=== PATIENT | male | born 1985 | race Caucasian/White ===

== ENCOUNTER 2019-07-29 17:54 | Inpatient (IN) ==
[2019-07-29] MEDS ORDERED: KETOROLAC TROMETHAMINE 15 MG/ML VIAL IV STA (18:18)
[2019-07-29] MEDS ORDERED: ACETAMINOPHEN 1,000 MG/100 ML VIAL IV STA (18:40)
[2019-07-29] MEDS ORDERED: VANCOMYCIN CONSULT ACTIVE PRN (18:40)
[2019-07-29] MEDS ORDERED: PIPERACILL/TAZOBAC CONSULT ACTIVE PRN (18:40)
[2019-07-29] MEDS ORDERED: PIPERACILLIN/TAZOBACTAM 4.5 GM/120 ML BAG IV ONE (18:40)
[2019-07-29] MEDS ORDERED: VANCOMYCIN HCL 1,000 MG in SODIUM CHLORIDE 0.9% 500 ML IV ONE (18:40)
[2019-07-29 19:31] LABS: Basophils # (auto) 0.01 K/uL (0-0.2); Basophils % (auto) 0.1 %; Eosinophils # (auto) 0.03 K/uL (0-0.5); Eosinophils % (auto) 0.3 %; Hematocrit (blood only) 35.7 % (42-52); Hemoglobin 11.5 g/dL (14.0-18.0); Immature Granulocytes # (auto) 0.02 K/uL (0.00-0.02); Immature Granulocytes % (auto) 0.2 %; Lymphocytes # (auto) 0.82 K/uL (1.2-3.4); Lymphocytes % (auto) 9.2 %; Mean Corpuscular Hemoglobin 27.9 pg (25-34); Mean Corpuscular Hgb Conc 32.2 g/dL (32-36); Mean Corpuscular Volume 86.7 fL (80-100); Mean Platelet Volume 8.3 fL (7.4-10.4); Monocytes # (auto) 0.64 K/uL (0.11-0.59); Monocytes % (auto) 7.1 %; Neutrophils # (auto) 7.44 K/uL (1.4-6.5); Neutrophils % (auto) 83.1 %; Platelet Count 460 K/uL (130-400); RDW Coefficient of Variation 13.6 % (11.5-14.5); RDW Standard Deviation 43.3 fL (36.4-46.3); Red Blood Count 4.12 M/uL (4.7-6.1); White Blood Count 8.96 K/uL (4.8-10.8)
[2019-07-29 19:45] LABS: INR 1.3 (0.9-1.1); Prothrombin Time 13.2 Seconds (9.0-12.0)
[2019-07-29 19:50] LABS: Albumin Level 3.1 gm/dl (3.4-5.0); Calcium 9.2 mg/dl (8.5-10.1); Creatinine Clr Calc Pharmacy 108.4 ml/min; Est GFR (African American) 146.2; Est GFR (Non-African American) 126.1; Potassium 4.2 mmol/L (3.5-5.1)
[2019-07-29 19:56] LABS: Albumin Globulin Ratio 0.6 (0.9-2); Bilirubin,Total 0.3 mg/dl (0.2-1); Globulin 5.6 gm/dl (2.5-4.0); Total Protein 8.7 gm/dl (6.4-8.2)
[2019-07-29] MEDS ORDERED: IOVERSOL 100ml IV PRN (22:16)
--- NOTE | 2019-07-29 22:31 | CT Scan Report ---
CT forearm LT w con CT DOSE: 403.80 mGy.cm CLINICAL HISTORY: Left forearm swelling. Possible abscess. TECHNIQUE: Patient was scanned in a dynamic helical fashion during intravenous administration of 92 2 0 cc of Optiray 320. A dose lowering technique was utilized adhering to the principles of ALARA. COMPARISON STUDY: None. FINDINGS: The patient was unable to move his arm from his abdomen. The study is therefore somewhat li mited from a technical standpoint. No fractures are visualized. There are no bony destructive changes to indicate acute osteomyelitis. There is gas present within the soft tissues of the proximal forearm suggestive of an infectious proc ess, or injection site.. There is a 3 cm pseudoaneurysm present within the medial aspect of the antecubital fossa. There is lucero rrounding soft tissue edema. IMPRESSION: 1. No evidence of fracture 2. Gas within the subcutaneous tissues of the antecubital fossa. This is suggestive of either infecti on, or injection site. 3. 3 cm contrast collection within the medial aspect of the antecubital fossa, likely representing a pseudoaneurysm arising from the brachial artery Electronically signed by: Kyler Bruce M.D. 07/29/2019 10:29 PM
--- NOTE | 2019-07-29 22:34 | CT Scan Report ---
CT elbow LT w con CT DOSE: CLINICAL HISTORY: infection, pain TECHNIQUE: Patient was scanned in a dynamic helical fashion during intravenous administration of 92 c c of Optiray 320. A dose lowering technique was utilized adhering to the principles of ALARA. COMPARISON STUDY: None. FINDINGS: The patient was unable to move his arms from his abdomen. The study is therefore limited from a techn ical standpoint due to arm positioning. There is gas present within the medial soft tissues of the antecubital fossa region, suggestive of ei ther a soft tissue infection or injection site. There is a 3 cm collection of contrast in the medial aspect of the antecubital fossa, likely represen ting a pseudoaneurysm arising from the brachial artery. There is surrounding edema. There are no acute fractures. There are no destructive changes to indicate osteomyelitis. IMPRESSION: 1. 3 cm collection of contrast within the medial aspect of the antecubital fossa, likely representing a pseudoaneurysm arising from the brachial artery. There is surrounding edema. 2. Gas present within the superficial medial soft tissues of the antecubital fossa. The findings are likely secondary to either an injection site, or soft tissue infection. Electronically signed by: Kyler Bruce M.D. 07/29/2019 10:33 PM
[2019-07-29] MEDS ORDERED: buprenorphine HCL 8 MG SUBL SL STA (23:15)
[2019-07-29] MEDS ORDERED: NITROGLYCERIN SL 0.4 MG/TAB TAB SL PRN (23:49)
[2019-07-29] MEDS ORDERED: ONDANSETRON INJ 2 MG/ML 2 ML VIAL IV PRN (23:49)
--- NOTE | 2019-07-30 00:35 | History and Physical Report ---
DATE OF ADMISSION: 07/29/2019 CHIEF COMPLAINT: Bleeding from the left antecubital fossa. HISTORY OF PRESENT ILLNESS: This is a 33-year-old male with past medical history significant for history of hepatitis C, status post treatment, history of I.V. drug abuse,last iv drug about 1 month ago, on 07/25/2019, he noticed swelling in the left elbow region and today morning, he also had some swelling in the left upper extremity, so we went to his pain clinic today and pain doctor tried to attempt to drain the swelling, but no pus came out, but started to bleed and the bleeding was stopped with Dermabond, but the patient came here. Here, in the Emergency Room, imaging studies showed 3 cm contrast collection over the medial aspect of the antecubital fossa, likely representing a pseudoaneurysm arising from the brachial artery and there is some gas in the subcutaneous tissues of the antecubital fossa. This is suggestive of either infection or injection site. The patient currently afebrile and hemodynamically stable and no leukocytosis. Denies any headache. No dizziness. No blurred vision. No earache. No sore throat. No difficulty swallowing. Appetite is okay. No chest pain. No shortness of breath. No cough. No nausea. No abdominal pain. Normal bowel and bladder movements. No blood in the stools. No black stools. No hematuria. No burning micturition. No swelling in the legs. No rash. Otherwise, active. ALLERGIES: TORADOL, SULFA ANTIBIOTICS AND TRAMADOL. PAST MEDICAL HISTORY: As mentioned above. PAST SURGICAL HISTORY: Hernia surgery as an , wisdom teeth. MEDICATIONS: The patient is on Subutex sublingual 8 mg t.i.d. and naproxen p.r.n. FAMILY HISTORY: Significant for father had alcoholism. Maternal grandfather with heart disorder. SOCIAL HISTORY: Single, lives with his mother. No smoking. Alcohol occasional. I.V. drug abuse, last time was about one month ago. REVIEW OF SYMPTOMS: As per HPI. Rest of review of systems negative. PHYSICAL EXAMINATION: GENERAL: The patient is of moderate build, not in acute distress. VITAL SIGNS: Temperature 36.9, pulse 56, respiratory rate 20, blood pressure 131/59 and oxygen 98% on room air. HEENT: No pallor. No icterus. Pupils are equal, round and reactive to light. NECK: Supple. No neck masses. CARDIOVASCULAR: S1, S2 heard. Regular rate and rhythm. No murmur. No gallop. RESPIRATORY SYSTEM: Normal AP diameter. No accessory muscle use. No wheezing. No crackles. ABDOMEN: Soft. Bowel sounds present. Nontender. No distention. CENTRAL NERVOUS SYSTEM: Cranial nerves II through XII grossly nonfocal. EXTREMITIES: Left upper extremity swollen, slightly erythematous. Left brachial pulses are palpable. LABORATORY DATA: WBC 8.9, hemoglobin 11.5, hematocrit 35.7 and platelets 460. PT 13.2. INR 1.3. Sodium 136, potassium 4.2, chloride 199, bicarbonate 31, BUN 7, creatinine 0.6, serum glucose 115, calcium 9.2, total bilirubin 0.3, AST 14, ALT 42 and alkaline phosphatase 87. IMAGING: CT scan of the left elbow with contrast, 3 mm collection of contrast within the medial aspect of the antecubital fossa, likely representing a pseudoaneurysm arising from the brachial artery. There is surrounding edema, gas present in the superficial medial soft tissues of the antecubital fossa. Findings are likely secondary to either injection site or soft tissue infection. Left forearm CT with contrast, no evidence of fracture or gas within the subcutaneous tissue of the antecubital fossa. This is suggestive of either infection or injection site 3 cm contrast collection in the medial aspect of the antecubital fossa, likely representing pseudoaneurysm arising from the brachial artery. ASSESSMENT AND PLAN: This is a 33-year-old male who presents with left upper extremity swelling and also swelling of the left antecubital fossa and found to have a pseudoaneurysm. 1. Probable pseudoaneurysm of the left brachial artery at the left antecubital fossa medial aspect. First, he noticed swelling in the left elbow on 07/25/2019 he went to pain doctor today and was tried to drain it, but no pus came out, it started bleeding and the bleeding was stopped with Dermabond and he came to the Emergency Room and the above findings were found. The Emergency Room physician talked to Vascular Surgery, to monitor, on I.V. antibiotics . We will consult Vascular Disease. In the Emergency Room, he was given Zosyn and vancomycin, which we will continue. Follow blood cultures. Because of the swelling of the left upper extremity, we will also do Doppler to rule out deep venous thrombosis. 2. History of hepatitis C, status post treatment. 3. Intravenous drug abuse, needs counseling. 4. Deep venous thrombosis prophylaxis, sequential compression devices. DISPOSITION: Admit to Med/Surg tele. Level 1 full code. MTDD
[2019-07-30] MEDS: PIPERACILLIN/TAZOBACTAM 3.375 GM in DEXTROSE 5% 100 ML IV SCH ×3 (01:01→19:16)
[2019-07-30] MEDS: SODIUM CHLORIDE 0.9% 1000ML 1,000 ML IV SCH ×2 (01:01→16:16)
[2019-07-30] MEDS: ACETAMINOPHEN 325 MG TAB PO PRN ×2 (01:02→17:29)
--- NOTE | 2019-07-30 01:13 | Emergency Department Note ---
Entered by Mindy Barnes acting as a scribe for History of Present Illness General Chief complaint: Laceration/Cut (Suture/Dermabond) Stated complaint: LAC ON ARM, ABCESS ON ARM Time Seen by Provider: 07/29/19 18:08 Source: patient History of Present Illness Onset (ago): day(s) 4 Location: upper extremity and left Pain Consistency: + other (persistent ) Maximum Pain Intensity: 6 Current Pain Intensity: 6 Quality: + other (abscess) Associated symptoms: + other (positive left upper extremity swelling; positive left elbow pain; negative pain in left hand; negative increased exhaustion); no fever/chills Treatments prior to arrival: other (Keflex) The patient is a 33 year old male with PMHx of IV drug abuse and osteomyelitis who presents to the Emergency Room with complaints of a persistent left arm abscess that began on July 25, 4 days prior to arrival. The patient states that since this time there has been worsening swelling in this area since this time. He states that a month prior to his symptoms beginning, he injected Subutex and states that there was pain with this and states that he then switched locations of injection. The patient states he has some pain near the center of this swelling, and rates this as a 6/10. He states that the swelling is now firm and his range of movement of this arm is limited. The patient denies pain in his hand, fevers, chills, and increased exhaustion. The patient denies any history of infections in this arm, but does state that he has a history of a spinal infection and MRSA infections. He states that he went to his Subutex- prescribing physician tamar who cut a small incision into the LUE that resulted in venous oozing and sent the patient to the ED. The patient states that he was given Keflex just prior to arrival. Home Medications Home Medications Medication Instructions Recorded Confirmed Type buprenorphine HCl 8 mg SUBLINGUAL TID 07/29/19 07/29/19 History naproxen sodium [Aleve] 1,100 mg PO Q8H PRN 07/29/19 07/29/19 History Allergies Allergy/AdvReac Type Severity Reaction Status Date / Time ketorolac [From Toradol] Allergy Unknown Unverified 07/29/19 18:28 Sulfa (Sulfonamide Allergy Unknown Unverified 07/29/19 18:28 Antibiotics) tramadol Allergy Unknown Unverified 07/29/19 18:28 Past Med/Surg History Medical History MRSA infection Family History Other No pertinent family history in first degree relatives Social History Preferred Language: Israeli Communication Ability: Effective 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 and A total of 10 systems reviewed and were otherwise negative Physical Exam Vital Signs Vital Signs - 24 hr 07/29/19 18:00 07/29/19 19:41 07/29/19 20:28 Temperature 36.9 C Temperature Source Oral Pulse Rate 89 Pulse Rate [Bilateral Apical] 86 65 Respiratory Rate 20 20 20 Respiratory Effort / Characteristics Non-Labored Spontaneous Respiratory Depth Normal Blood Pressure 117/79 Blood Pressure [Right Arm] 130/67 112/59 L Blood Pressure Mean 91 Blood Pressure Mean [Right Arm] 88 76 Blood Pressure Position Sitting Pulse Oximetry 97 97 97 Oxygen Delivery Method Room Air Room Air Room Air Sepsis Recent Fever Within 48 Hours No Sepsis Action Taken by Nursing No Action Required 07/29/19 21:05 07/29/19 22:18 Temperature Temperature Source Pulse Rate Pulse Rate [Bilateral Apical] 61 66 Respiratory Rate 18 20 Respiratory Effort / Characteristics Respiratory Depth Blood Pressure Blood Pressure [Right Arm] 119/67 121/59 L Blood Pressure Mean Blood Pressure Mean [Right Arm] 84 79 Blood Pressure Position Pulse Oximetry 92 98 Oxygen Delivery Method Room Air Sepsis Recent Fever Within 48 Hours Sepsis Action Taken by Nursing GENERAL: Awake, alert, uncomfortable appearing HENT: Normocephalic, atraumatic. EYES: Normal conjunctiva. Sclera non-icteric. RESPIRATORY: Clear to auscultation. No wheezes. Normal respiratory effort. CARDIAC: Normal rate. Normal rhythm. Extremities warm and well perfused. GI: Soft, non-distended. No tenderness to palpation. MUSCULOSKELETAL: Atraumatic. Chest examination reveals no tenderness. UPPER EXTREMITIES: Swelling and firmness of the left distal upper arm extending towards forearm. 1+ left radial pulse. Neuro intact in the left hand. Mild swelling of the left forearm and hand. No pain with movement of fingers or wrist. Patient is unable to move left upper extremity out of 90 degrees at elbow. There is a 1cm distal left upper arm incision minimal to no oozing. LOWER EXTREMITIES: Calves are equal size bilaterally and non-tender. No edema NEURO: No sensory deficits noted. No facial droop or slurred speech. SKIN: Warm and dry. No jaundice noted. Course Course 1810: Past medical records reviewed. The patient was evaluated in room B11B. A complete history and physical exam was performed. 2055: The patient's IV failed at CT. 2120: The IV team is trying again to get an IV for the patient. 8: I was able to successfully put an IV in the patient. 2243: I discussed the case with Dr. Ziegler-Vascular Surgery who recommends no acute treatment. He states that he will evaluate the patient when he is in inpatient. 2252: I checked on and updated the patient. He is in agreement with the treatment plan. 2254: [facility] for further evaluation. Administered Medications Acetaminophen (Tylenol) 650 mg PO Q4H PRN PRN Reason: Pain or Fever Stop: 08/28/19 23:48 Last Admin: 07/30/19 01:02 Dose: 650 mg Documented by: [id number] Sodium Chloride (Nss 1000ml) 1,000 mls @ 80 mls/hr IV .[id number] [id number] Stop: 08/28/19 23:48 Last Admin: 07/30/19 01:01 Dose: 80 mls/hr Documented by: [id number] Piperacillin Sod/Tazobactam (Sod 3.375 gm/ Dextrose) 115 mls @ 28.75 mls/hr IV Q8H BIJU; Protocol Stop: 08/09/19 01:59 Last Admin: 07/30/19 01:01 Dose: 28.8 mls/hr Documented by: [id number] Discontinued Medications Buprenorphine HCl (Subutex) 8 mg SL NOW STA Stop: 07/29/19 23:16 Last Admin: 07/29/19 23:28 Dose: 8 mg Documented by: [id number] Piperacillin Sod/Tazobactam Sod (Zosyn) 4.5 gm in 120 mls @ 240 mls/hr IV NOW ONE Stop: 07/29/19 19:09 Last Infusion: 07/29/19 20:25 Dose: 0 mls/hr Documented by: [id number] Admin: 07/29/19 19:52 Dose: 240 mls/hr Documented by: [id number] Vancomycin HCl 1,000 mg/ (Sodium Chloride) 520 mls @ 200 mls/hr IV NOW ONE Stop: 07/29/19 21:15 Last Infusion: 07/30/19 00:29 Dose: 0 mls/hr Documented by: [id number] Admin: 07/29/19 20:20 Dose: 200 mls/hr Documented by: [id number] Acetaminophen (Ofirmev) 1,000 mg in 100 mls @ 400 mls/hr IV NOW STA Stop: 07/29/19 18:54 Last Infusion: 07/29/19 19:56 Dose: 0 mls/hr Documented by: [id number] Admin: 07/29/19 19:37 Dose: 400 mls/hr Documented by: [id number] Ioversol (Optiray 320 100ml) 92 ml IV ONCE PRN PRN Reason: Interaction Checking Stop: 08/02/19 22:15 Last Admin: 07/29/19 22:17 Dose: 92 ml Documented by: [id number] Ketorolac Tromethamine (Toradol) 15 mg IV NOW STA Stop: 07/29/19 18:19 Last Admin: 07/29/19 20:26 Dose: Not Given Documented by: [id number] Medical Decision Making Differential Diagnosis Differential diagnosis includes etiologies such as cellulitis, abscess, MRSA infection, DVT, necrotizing fasciitis, dermatitis, drug eruption, as well as others were entertained. Medical Records Attestation: I reviewed the patient's medical records. Home Medications Current Medication List: was personally reviewed by me Laboratory Data Attestation: I reviewed the patient's lab results. Result diagrams: 07/29/19 19:25 07/29/19 19:24 Lab Results 07/29/19 07/29/19 07/29/19 Range/Units 19:24 19:24 19:25 WBC 8.96 (4.8-10.8) K/uL RBC 4.12 L (4.7-6.1) M/uL Hgb 11.5 L (14.0-18.0) g/dL Hct 35.7 L (42-52) % MCV 86.7 (80-100) fL MCH 27.9 (25-34) pg MCHC 32.2 (32-36) g/dL RDW Std Deviation 43.3 (36.4-46.3) fL RDW Coeff of Davdi 13.6 (11.5-14.5) % Plt Count 460 H (130-400) K/uL MPV 8.3 (7.4-10.4) fL Immature Gran % (Auto) 0.2 % Neut % (Auto) 83.1 % Lymph % (Auto) 9.2 % Hardy % (Auto) 7.1 % Eos % (Auto) 0.3 % Baso % (Auto) 0.1 % Immature Gran # (Auto) 0.02 (0.00-0.02) K/uL Neut # (Auto) 7.44 H (1.4-6.5) K/uL Lymph # (Auto) 0.82 L (1.2-3.4) K/uL Hardy # (Auto) 0.64 H (0.11-0.59) K/uL Eos # (Auto) 0.03 (0-0.5) K/uL Baso # (Auto) 0.01 (0-0.2) K/uL PT 13.2 H (9.0-12.0) Seconds INR 1.3 H (0.9-1.1) Sodium 136 (136-145) mmol/L Potassium 4.2 (3.5-5.1) mmol/L Chloride 99 (98-107) mmol/L Carbon Dioxide 31 (21-32) mmol/L Anion Gap 6.0 (3-11) BUN 7 (7-18) mg/dl Creatinine 0.66 (0.6-1.4) mg/dl Est Cr Clr Drug Dosing 108.4 ml/min Est GFR ( Amer) 146.2 Est GFR (Non-Af Amer) 126.1 BUN/Creatinine Ratio 11.0 (10-20) Glucose 115 H (70-99) mg/dl Calcium 9.2 (8.5-10.1) mg/dl Total Bilirubin 0.3 (0.2-1) mg/dl AST 14 L (15-37) U/L ALT 12 (12-78) U/L Alkaline Phosphatase 87 (45-117) U/L Total Protein 8.7 H (6.4-8.2) gm/dl Albumin 3.1 L (3.4-5.0) gm/dl Globulin 5.6 H (2.5-4.0) gm/dl Albumin/Globulin Ratio 0.6 L (0.9-2) Specimen Hemolysis Imaging Data Radiologist's Impression: Radiology results as stated below per my review and the radiologist's interpretation: CT elbow LT w con CT DOSE: CLINICAL HISTORY: infection, pain TECHNIQUE: Patient was scanned in a dynamic helical fashion during intravenous administration of 92 cc of Optiray 320. A dose lowering technique was utilized adhering to the principles of ALARA. COMPARISON STUDY: None. FINDINGS: The patient was unable to move his arms from his abdomen. The study is therefore limited from a technical standpoint due to arm positioning. There is gas present within the medial soft tissues of the antecubital fossa r egion, suggestive of either a soft tissue infection or injection site. There is a 3 cm collection of contrast in the medial aspect of the antecubital fossa, likely representing a pseudoaneurysm arising from the brachial artery. There is surrounding edema. There are no acute fractures. There are no destructive changes to indicate osteomyelitis. IMPRESSION: 1. 3 cm collection of contrast within the medial aspect of the antecubital fossa, likely representing a pseudoaneurysm arising from the brachial artery. There is surrounding edema. 2. Gas present within the superficial medial soft tissues of the antecubital fossa. The findings are likely secondary to either an injection site, or soft t issue infection. Electronically signed by: Kyler Bruce M.D. 07/29/2019 10:[address] forearm LT w con CT DOSE: 403.80 mGy.cm CLINICAL HISTORY: Left forearm swelling. Possible abscess. TECHNIQUE: Patient was scanned in a dynamic helical fashion during intravenous administration of 92 20 cc of Optiray 320. A dose lowering technique was utilized adhering to the principles of ALARA. COMPARISON STUDY: None. FINDINGS: The patient was unable to move his arm from his abdomen. The study is therefore somewhat limited from a technical standpoint. No fractures are visualized. There are no bony destructive changes to indicate acute osteomyelitis. There is gas present within the soft tissues of the proximal forearm suggestive of an infectious process, or injection site.. There is a 3 cm pseudoaneurysm present within the medial aspect of the an tecubital fossa. There is surrounding soft tissue edema. IMPRESSION: 1. No evidence of fracture 2. Gas within the subcutaneous tissues of the antecubital fossa. This is suggestive of either infection, or injection site. 3. 3 cm contrast collection within the medial aspect of the antecubital fossa, likely representing a pseudoaneurysm arising from the brachial artery Electronically signed by: Kyler Bruce M.D. 07/29/2019 10:29 PM Blood Pressure Blood Pressure Findings: Normal blood pressure MDM Narrative Patient is a 33-year-old gentleman presenting here today with complaint of a left arm abscess. History of IV drug use and hepatitis C. States another physician attempted drainage and first noticed this abscess 4 days ago. States he believes is from where he attempted to inject Subutex. States this injection was about a month ago. Afebrile. Denies fever but does endorse some chills. Patient reports a history of MRSA and prior osteomyelitis of the spine proximate 10 years ago. States he has intact sensation and function of his hand but is unable to move his elbow beyond the 90 degree flexed position he is in. The significant swelling and firmness of this surrounding left elbow joint. Again appears neurovascularly intact. No crepitus. Patient endorses 6 out of 10 pa in. Given some IV Tylenol given his history of Subutex usage as well as Toradol allergy. History of IV drug use to present some problems with IV access. Blood cultures and basic labs were ordered. Did attempt a CT of the left upper extremity to evaluate extent of infection. The small prior I&D attempted from earlier today about 1 cm with occasionally a slight ooze but no arterial bleeding noted. No purulence was reported to come out of this for the patient and none is significantly expressed on exam here. Ordered broad-spectrum vancomycin and Zosyn as concern for infection. No significant leukocytosis. Doubt this represents sepsis. No significant electrolyte abnormality. No evidence of acute hepatitis. Placed 18g IV RUE for access after failed 22g in hand by IC team. CT scan of the upper extremity showed evidence of edema and gas collection and what appears to be a 3 cm pseudoaneurysm from the brachial artery. Again has a grossly neurovascularly intact left hand. Discussed with vascular surgeon the case. Given my concerns for overlying cellulitis again received antibiotics and will required vascular repair when infection concerns normalized. Patient will be admitted with vascular to see in the morning. Discussed with the patient and the [facility]ist. I do not have acute suspicion at this time for necrotizing fasciitis. Impression & Plan Cellulitis of left elbow, Pseudoaneurysm of brachial artery, Left elbow pain Discharge Plan Visit Data *Final* Discharge Date/Time: 07/29/19 23:37 Chief Complaint: Laceration/Cut (Suture/Dermabond) Stated Complaint: LAC ON ARM, ABCESS ON ARM ED Provider: Chaka Kolb Discharge Problem: Cellulitis of left elbow, Pseudoaneurysm of brachial artery, Left elbow pain Patient Disposition: Admitted As Inpatient Discharge Instructions Interventions: ED Discharge Assessment Last Done: 07/29/19 23:37 The scribe's documentation has been prepared under my direction and personally reviewed by me in its entirety. I confirm that the note above accurately reflects all work, treatment, procedures, and medical decision making performed by me.
[2019-07-30] MEDS ORDERED: SODIUM CHLORIDE 0.9% 500 ML IV SCH (04:00)
[2019-07-30] MEDS: VANCOMYCIN HCL 1,000 MG in SODIUM CHLORIDE 0.9% 250 ML IV SCH ×3 (05:28→22:06)
--- NOTE | 2019-07-30 06:33 | Ultrasound Report ---
US venous doppler UE LT HISTORY: 33 years-old Male dvt? swelling of left upper extremity acute pain and swelling of the left upper extremity COMPARISON: Left forearm and elbow CT studies 07/29/2019 TECHNIQUE: Multiple real-time sonographic images of the left upper extremity deep venous structures w ere obtained assessing grayscale appearance, color and spectral flow FINDINGS: Normal flow, compressibility, phasicity and compressibility of left upper extremity deep venous struc tures. Subcutaneous edema is noted throughout. There is a prominent lymph node about the distal upper arm adjacent to the brachial vein measuring up to 0.8 x 0.4 cm, likely reactive. The questioned pseu doaneurysm of the brachial artery is not identified on this exam. Antecubital structures are not well seen secondary to bandage within this region. No drainable fluid collection. IMPRESSION: No sonographic evidence of deep venous thrombosis. The above report was generated using voice recognition software. It may contain grammatical, syntax o r spelling errors. Electronically signed by: Tien Bagley M.D. 07/30/2019 6:32 AM
[2019-07-30] MEDS: buprenorphine HCL 8 MG SUBL SL SCH ×3 (08:40→22:06)
[2019-07-30] MEDS ORDERED: CEFAZOLIN 1000MG 1,000 MG/7.5 ML SYR IV ONE (09:54)
--- NOTE | 2019-07-30 10:05 | Consultation ---
Date of Consultation July 30, 2019 Assessment & Plan (1) Pseudoaneurysm of brachial artery: D/T slow bleeding noted from incision, pt to undergo repair with possible bypass in OR today by Dr Wayne. Pt agreeable. Has been NPO since midnight. Patient was seen, examined, and chart reviewed. Agree with exam and treatment plan of the Vascular PA. Present on Admission?: Yes History of Present Illness Reason for Consultation: L amr pseudoaneurysm Attending Physician: Sonam Medina MD History of Present Illness 33 yo m with hx of hep C and IVDA, admitted last evening d/t bleeding from L elbow incision and found to have a brachial art pseudoaneurysm, seen in consult ation today. Pt states he last used IVD approx 1 month ago. Noted swelling and pain of L elbow/forearm on 07/25. Yesterday went to pain clinic and physician there attempted to drain what he thought was an abscess. When bleeding was noted, pt was sent to ED. Pt admits swelling and pain of L forearm and hand. Denies fever, chills, chest psin, abd pain, N/V, rest pain, claudication, other complaints. CT scan of L arm demonstrates distal brachial art pseudoaneurysm. Allergies Allergy/AdvReac Type Severity Reaction Status Date / Time ketorolac [From Toradol] Allergy Unknown Unverified 07/29/19 18:28 Sulfa (Sulfonamide Allergy Unknown Unverified 07/29/19 18:28 Antibiotics) tramadol Allergy Unknown Unverified 07/29/19 18:28 Home Medications Home Medications Medication Instructions Recorded Confirmed Type buprenorphine HCl 8 mg SUBLINGUAL TID 07/29/19 07/29/19 History naproxen sodium [Aleve] 1,100 mg PO Q8H PRN 07/29/19 07/29/19 History Patient History Medical History Hepatitis C MRSA infection Surgical History [place] teeth extracted Family History Other No pertinent family history in first degree relatives Social History Preferred Language: Tongan Communication Ability: Effective Drosophere Operator Required: No Beliefs That Will Affect Care: None Current Living Situation: Parent Current Living Situation Comment: mother Feels Safe at Home: Yes Safety Concerns: Feels Safe At This Time Smoking Status: Never smoker Hx Alcohol Use: No Hx Substance Use: Yes (Just my perscribed) substance use type: heroin Substance Use Type Other:: Subutex Review of Systems Review of Systems: All systems reviewed & are unremarkable except as noted in HPI & below Physical Exam Constitutional: WD/WN, vitals as above + disheveled and cooperative; not in distress Eyes: PERRL, conjunctivae normal, anicteric sclerae ENMT: external ear and nose normal, oropharynx normal Ears: no hearing impairment Neck: trachea midline Respiratory: normal respiratory effort, lungs clear to auscultation Cardiovascular: Rate/Rhythm: regular rate and regular rhythm Vessels: normal peripheral pulses, brachial pulses present (L elbow incision oozing blood, 4x5cm pulsatile mass noted), radial pulses present and ulnar pulses pr esent Extremities: normal capillary refill and + edema (L forearm/hand) Gastrointestinal (Abdomen): normal bowel sounds, soft, nontender, no he patosplenomegaly Musculoskeletal: no cyanosis or clubbing, extremities motor strength 5/5 Skin: no rashes, warm and dry Neurologic: moves all extremities; no focal motor deficits and not confused Psychiatric: A+Ox3, euthymic affect Results & Data Vital Signs (Past 12 Hours) Vital Signs Temp Pulse Pulse Pulse Resp BP Pulse Ox 07/30/19 08:00 56 L 07/30/19 07:21 36.8 C 73 16 94/51 L 97 07/30/19 06:16 71 102/70 07/30/19 04:22 77 07/30/19 03:38 37 C 60 18 89/47 L 96 07/29/19 23:58 37.3 C 63 18 109/62 96 07/29/19 23:30 66 18 114/49 L 97 07/29/19 22:18 66 20 121/59 L 98
[2019-07-30] MEDS ORDERED: MEPERIDINE HCL 25 MG/ML CARP IV PRN (10:32)
[2019-07-30] MEDS ORDERED: LABETALOL HCL IV 5 MG/ML 20ML IV PRN (10:32)
[2019-07-30] MEDS ORDERED: ATROPINE SULFATE 0.1 MG/ML 10ML SYR IV PRN (10:32)
[2019-07-30] MEDS ORDERED: ePHEDrine sulfate 50 MG/ML AMP IV PRN (10:32)
[2019-07-30] MEDS ORDERED: PHENYLEPHRINE 100MCG/ML 5ML SYR IV PRN (10:32)
[2019-07-30] MEDS ORDERED: ONDANSETRON INJ 2 MG/ML 2 ML VIAL IV PRN ×2 (10:33→15:52)
--- NOTE | 2019-07-30 10:33 | History & Physical Bridge Note ---
Date of Service July 30, 2019 History & Physical Bridge Note I have examined the patient, reviewed the History & Physical and in the interval since the performance of the History & Physical I have noted the following changes of clinical significance: no changes noted
[2019-07-30] MEDS ORDERED: MIDAZOLAM HCL 1 MG/ML 2ML VIAL ONE (10:36)
[2019-07-30] MEDS ORDERED: PROPOFOL IV EMULSION 10 MG/ML 20 ML VIAL IV ONE (10:36)
[2019-07-30] MEDS ORDERED: ROCURONIUM BROMIDE 10 MG/ML 5 ML VIAL ONE (10:36)
[2019-07-30] MEDS ORDERED: fentaNYL citrate 100 MCG/2 ML VIAL ONE ×2 (10:36→11:57)
[2019-07-30] MEDS ORDERED: LIDOCAINE HCL 2% 2 ML VIAL/AMP(20MG/ML) INFIL ONE (10:36)
[2019-07-30] MEDS ORDERED: EPINEPHrine INJ 1 MG/ML AMP ONE (10:53)
[2019-07-30] MEDS ORDERED: BUPIVACAINE 0.5 % 5 MG/1 ML MPF 30ML VIAL ONE (10:53)
[2019-07-30] MEDS ORDERED: HEPARIN (PORCINE) 1000 UNIT/ML 10 ML (CATH LAB USE ONLY) ONE (10:53)
[2019-07-30] MEDS ORDERED: PAPAVERINE HCL INJ 30 MG/ML 2 ML VIAL ONE (10:53)
[2019-07-30] MEDS ORDERED: IODIXANOL (VISIPAQUE) 270 MG/ML 150ML ONE (10:54)
[2019-07-30] MEDS ORDERED: CEFAZOLIN 250 MG/ML 1 GM VIAL ONE (10:54)
[2019-07-30] MEDS ORDERED: GELATIN SPONGE SZ 100 ONE (10:54)
[2019-07-30] MEDS ORDERED: LIDOCAINE HCL 1% 20 ML VIAL ONE (10:54)
[2019-07-30] MEDS ORDERED: THROMBIN 5000 UNITS KIT ONE (10:54)
--- NOTE | 2019-07-30 11:08 | Anesthesiology Consultation ---
Date of Service July 30, 2019 Assessment & Plan (1) Encounter for pre-operative examination: Chart Review Chart Review: Acceptable Risk for Surgery and Patient NOT seen in Pre Admission Testing Consults Requested none History Surgery Operation Date: 07/30/19 10:50 Proposed Procedures p Left Forearm Pseudoaneurysm Repair, Possible Bypass - Braden Wayne MD Height/Weight Height: 6 ft Weight: 59.7 kg Allergies Allergy/AdvReac Type Severity Reaction Status Date / Time ketorolac [From Toradol] Allergy Unknown Unverified 07/29/19 18:28 Sulfa (Sulfonamide Allergy Unknown Unverified 07/29/19 18:28 Antibiotics) tramadol Allergy Unknown Unverified 07/29/19 18:28 Medications Home Medications Medication Instructions Recorded Confirmed Last Taken buprenorphine HCl 8 mg SUBLINGUAL TID 07/29/19 07/29/19 07/29/19 naproxen sodium [Aleve] 1,100 mg PO Q8H PRN 07/29/19 07/29/19 07/29/19 Active Medications Generic Name Dose Route Start Last Admin Trade Name Freq PRN Reason Stop Dose Admin Acetaminophen 650 mg 07/29/19 23:49 07/30/19 01:02 Tylenol PO 08/28/19 23:48 650 mg Q4H PRN Administration Pain or Fever Buprenorphine HCl 8 mg 07/30/19 09:00 07/30/19 08:40 Subutex SL 08/29/19 08:59 8 mg TID BIJU Administration Sodium Chloride 1,000 mls @ 80 mls/hr 07/29/19 23:49 07/30/19 05:29 Nss 1000ml IV 08/28/19 23:48 80 mls/hr .[id number] BIJU Infusion Vancomycin HCl 1,000 mg/ 270 mls @ 125 mls/hr 07/30/19 02:00 07/30/19 07:49 Sodium Chloride IV 08/09/19 01:59 Infused Q8H BIJU Infusion Piperacillin Sod/Tazobactam 115 mls @ 28.75 mls/hr 07/30/19 02:00 07/30/19 10:26 Sod 3.375 gm/ Dextrose IV 08/09/19 01:59 28.8 mls/hr Q8H BIJU Administration Protocol NPO Date Last Intake of Fluids: 07/29/19 Time Last Intake of Fluids: 23:20 Date Last Intake of Solids: 07/29/19 Time Last Intake of Solids: 23:20 Past Medical History Medical History (Updated 07/30/19 @ 11:09 by Thuan Farmer MD) Hepatitis C Heroin use disorder, mild, on maintenance therapy, abuse History of pseudoaneurysm L brachial MRSA infection Past Family History Family History Other No pertinent family history in first degree relatives Past Surgical History Surgical History [place] teeth extracted Social History Smoking Status: Never smoker Hx Alcohol Use: No Hx Substance Use: Yes (Just my perscribed) substance use type: heroin Substance Use Type Other:: Subutex Physical Exam Vital Signs Last Vital Signs Temp 37.1 C 07/30/19 10:57 Pulse 85 07/30/19 10:57 Resp 18 07/30/19 10:57 BP 136/66 07/30/19 10:57 Pulse Ox 96 07/30/19 10:57 Testing Laboratory Results 07/29/19 19:25 07/29/19 19:24 PT 13.2 Seconds (9.0-12.0) H 07/29/19 19:24 INR 1.3 (0.9-1.1) H 07/29/19 19:24
[2019-07-30] MEDS ORDERED: HEPARIN SOD (PORCINE) 1000 UNIT/ML 10 ML VIAL ONE (12:14)
[2019-07-30] MEDS ORDERED: ONDANSETRON INJ 2 MG/ML 2 ML VIAL ONE (13:09)
[2019-07-30] MEDS ORDERED: NEOSTIGMINE METHYLSULFATE 5 MG/5 ML SYR ONE (13:13)
[2019-07-30] MEDS ORDERED: GLYCOPYRROLATE 0.2 MG/ML VIAL ONE (13:13)
--- NOTE | 2019-07-30 13:19 | Operative Report ---
Post Operative Report Pre & Post Diagnosis Operation Date: 07/30/19 10:50 <No data on this case meets the specified criteria> I identified the patient and participated in the time-out.: Yes Procedure Operation Date: 07/30/19 10:50 Actual Procedures p Left Forearm Pseudoaneurysm Resection - Braden Wayne MD Surgeon Braden Wayne MD Bindery Assistant Saima Belcher PA-C Estimated Blood Loss 200 Findings Consistent with Post-Op Diagnosis Specimens Culture sent from the pseudoaneurysm sac Complications none Disposition Accompanied Patient To Recovery: No Disposition: Recovery Room Indications This is a 33-year-old male who has been an IV drug abuser in the past. He claims that on the which was 5 days prior to this he was seen for swelling in his left elbow which suddenly developed. This was treated with an small incision and attempted drainage. No pus was expressed at that time just some blood. He then came to the emergency room was found to have a pseudoaneurysm of the brachial artery of the left side. He was afebrile at that time with normal white count. CT scan showed the pseudoaneurysm as well as a few air bubbles in the arm. He was still oozing a small amount of blood on exam today. Emergency repair was recommended. I have discussed the risks options and benefits of the procedure with the patient. The patient understands the risks options and benefits and agrees to the procedure. Description of Procedure The patient was taken to the operating room and placed in the supine position. General anesthesia was accomplished. After the left arm was prepped and draped in a sterile manner the patient was identified and a timeout was performed. A longitudinal incision was made over the brachial artery above the area of the pseudoaneurysm. The brachial arteries identified. The incision was then carried down over the pseudoaneurysm and transversely through the antecubital fossa. The brachial arteries identified in the upper part of the incision and controlled. This was then traced downward. A large hole was seen in the brachial artery it appeared to be right at the bifurcation of the ulnar and radial arteries. Both ends of the stump were securely ligated. Adequate hemos tasis was noted at that time. There was a Doppler signal heard at the radial artery on the left wrist although it was monophasic it was not too difficult to find. He did have sluggish but capillary refill present on the fingers. At this time the wound was then closed using interrupted nylon sutures in the upper and lower parts incision leaving the area of the aneurysm opened. We did close the area of ligation with interrupted Vicryls upon opposing muscle above the ligated stump. Sterile dressings were then applied to the wound.The patient left the operation room in satisfactory condition and tolerated the procedure well. All needle and sponge counts were correct at the end of the procedure. Saima Belcher Pac assisted due to lack of resident availability and was necessary for positioning, draping, retraction, wound closure deep layers, subcutaneous tissue, and skin closure and was necessary for assisting with the case. I attest to the content of the Intraoperative Record and any orders documented therein. Any exceptions are noted below.
[2019-07-30] MEDS: fentaNYL citrate 100 MCG/2 ML VIAL IV PRN ×4 (13:59→14:25)
[2019-07-30] MEDS: HYDROmorphone INJ 2 MG/ML SYR/VIAL IV PRN ×4 (14:31→14:51)
--- NOTE | 2019-07-30 14:36 | Anesthesiology Progress Note ---
Date of Service July 30, 2019 Anesthesia Post Procedure Vital Signs Vital Signs: Temp Pulse Pulse Pulse Pulse Resp BP 07/30/19 14:35 52 L 13 07/30/19 14:25 53 L 12 07/30/19 14:15 50 L 15 07/30/19 14:05 51 L 12 07/30/19 13:55 52 L 12 07/30/19 13:45 64 17 07/30/19 13:37 36.0 C L 82 14 07/30/19 10:57 37.1 C 85 18 07/30/19 08:00 56 L 07/30/19 07:21 36.8 C 73 16 07/30/19 06:16 71 07/30/19 04:22 77 07/30/19 03:38 37 C 60 18 07/29/19 23:58 37.3 C 63 18 07/29/19 23:30 66 18 07/29/19 22:18 66 20 07/29/19 21:05 61 18 07/29/19 20:28 65 20 07/29/19 19:41 86 20 07/29/19 18:00 36.9 C 89 20 117/79 BP Pulse Ox 07/30/19 14:35 132/80 99 07/30/19 14:25 133/80 99 07/30/19 14:15 130/83 100 07/30/19 14:05 133/79 100 07/30/19 13:55 134/80 100 07/30/19 13:45 136/56 L 100 07/30/19 13:37 115/79 100 07/30/19 10:57 136/66 96 07/30/19 08:00 07/30/19 07:21 94/51 L 97 07/30/19 06:16 102/70 07/30/19 04:22 07/30/19 03:38 89/47 L 96 07/29/19 23:58 109/62 96 07/29/19 23:30 114/49 L 97 07/29/19 22:18 121/59 L 98 07/29/19 21:05 119/67 92 07/29/19 20:28 112/59 L 97 07/29/19 19:41 130/67 97 07/29/19 18:00 97 Pain Intensity Left Arm: Pain Intensity: 4 Transfer of Care Handoff Completed per policy Notes Mental Status: alert / awake / arousable Patient Amnestic to Procedure: Yes Nausea / Vomiting: adequately controlled Pain: adequately controlled Airway Patency, RR, SpO2: stable & adequate BP & HR: stable & adequate Hydration State: stable & adequate Anesthetic Complications: no major complications apparent and Pt Satisfied with anesthetic care
--- NOTE | 2019-07-30 15:05 | Pharmacy Report ---
Pharmacy Abx Initial Consult - Date of Service July 30, 2019 - Pharmacy Dosing Scope Date of Consult: 07/30 Consultation requested by: Dr. Kim Pharmacy is consulted to initiate vancomycin IV/PO dosing therapy, order appropriate labs and adjust drug dose/frequency. - Subjective The patient is a 33 year old M admitted on 07/29/19 23:15. - Objective Height: 6 ft Weight: 59.7 kg Vital Signs (Past 12hrs): Vital Signs Temp Pulse Pulse Pulse Resp BP Pulse Ox 07/30/19 14:55 36.4 C L 53 L 12 129/82 99 07/30/19 14:45 53 L 12 130/83 98 07/30/19 14:35 52 L 13 132/80 99 07/30/19 14:25 53 L 12 133/80 99 07/30/19 14:15 50 L 15 130/83 100 07/30/19 14:05 51 L 12 133/79 100 07/30/19 13:55 52 L 12 134/80 100 07/30/19 13:45 64 17 136/56 L 100 07/30/19 13:37 36.0 C L 82 14 115/79 100 07/30/19 10:57 37.1 C 85 18 136/66 96 07/30/19 08:00 56 L 07/30/19 07:21 36.8 C 73 16 94/51 L 97 07/30/19 06:16 71 102/70 07/30/19 04:22 77 07/30/19 03:38 37 C 60 18 89/47 L 96 Lab Results (24hrs): Laboratory Tests (24 Hours) 07/29/19 07/29/19 19:25 19:24 WBC 8.96 Neut # (Auto) 7.44 H Creatinine 0.66 Est Cr Clr Drug Dosing 108.4 Micro Results: 07/30/19 12:13 Gram Stain - Final Arm,Left Aerobic and Anaerobic Culture - Pending 07/29/19 19:13 Aerobic Blood Culture - Pending Blood Anaerobic Blood Culture - Pending - Assessment & Plan Assessment 33 year old male concern for arm abscess/infection. Vascular surgery consulted. Blood cultures x 2 pending and wound cx pending. Of note, IV drug abuser. Plan Vancomycin IV * Received vancomycin 1gm in ED last evening and started on vancomycin 1 gm iv q 8 hr to achieve an estimated trough ~15-20 mcg/ml * Estimated kinetics: t1/2~8hrs, ke~0.09hr-1, CrCl ~100 * Trough ordered prior to 0600 dose on 07/31 to ensure therapeutic Piperacillin/tazobactam * 4.5 gm x 1, then 3.375 gm iv q 8 hr (appropriate for CrCl >20 ml/min) Pharmacy will continue to follow and will adjust dose/frequency as necessary. Thank you.
[2019-07-30 16:20] LABS: Basophils # (auto) 0.02 K/uL (0-0.2); Basophils % (auto) 0.2 %; Eosinophils # (auto) 0.04 K/uL (0-0.5); Eosinophils % (auto) 0.4 %; Hematocrit (blood only) 29.9 % (42-52); Hemoglobin 9.6 g/dL (14.0-18.0); Immature Granulocytes # (auto) 0.03 K/uL (0.00-0.02); Immature Granulocytes % (auto) 0.3 %; Lymphocytes # (auto) 1.22 K/uL (1.2-3.4); Lymphocytes % (auto) 13.1 %; Mean Corpuscular Hgb Conc 32.1 g/dL (32-36); Mean Corpuscular Volume 87.2 fL (80-100); Mean Platelet Volume 7.8 fL (7.4-10.4); Monocytes # (auto) 0.83 K/uL (0.11-0.59); Monocytes % (auto) 8.9 %; Neutrophils # (auto) 7.19 K/uL (1.4-6.5); Neutrophils % (auto) 77.1 %; Platelet Count 447 K/uL (130-400); RDW Coefficient of Variation 13.8 % (11.5-14.5); RDW Standard Deviation 44.3 fL (36.4-46.3); Red Blood Count 3.43 M/uL (4.7-6.1); White Blood Count 9.33 K/uL (4.8-10.8)
[2019-07-30 16:36] LABS: Creatinine Clr Calc Pharmacy 120.4 ml/min; Est GFR (African American) 140.3
[2019-07-30] MEDS: MoRPHine SULFATE 4 MG/ML 1 ML CARP\\VIAL IV PRN (20:39)
[2019-07-30] MEDS: HYDROCODONE/ACETAMOPHEN 5/325MG TAB PO PRN (23:23)
[2019-07-31] MEDS: SODIUM CHLORIDE 0.9% 1000ML 1,000 ML IV SCH ×2 (01:56→23:19)
[2019-07-31] MEDS: PIPERACILLIN/TAZOBACTAM 3.375 GM in DEXTROSE 5% 100 ML IV SCH ×3 (01:56→17:54)
[2019-07-31] MEDS: MoRPHine SULFATE 4 MG/ML 1 ML CARP\\VIAL IV PRN ×3 (01:59→08:07)
[2019-07-31] MEDS ORDERED: VANCOMYCIN TROUGH ONE (05:30)
[2019-07-31] MEDS: HYDROCODONE/ACETAMOPHEN 5/325MG TAB PO PRN ×5 (05:32→23:17)
[2019-07-31] MEDS: VANCOMYCIN HCL 1,000 MG in SODIUM CHLORIDE 0.9% 250 ML IV SCH ×3 (06:07→21:36)
--- NOTE | 2019-07-31 07:54 | Anesthesiology Progress Note ---
Date of Service July 31, 2019 Physical Exam Vital Signs: Last Vital Signs Temp 36.8 C 07/31/19 07:09 Pulse 64 07/31/19 07:09 Resp 10 L 07/31/19 07:09 BP 127/47 L 07/31/19 07:09 Pulse Ox 92 07/31/19 07:09 Results & Data Medications Administered Acetaminophen (Tylenol) 650 mg PO Q4H PRN PRN Reason: Pain or Fever Stop: 08/28/19 23:48 Last Admin: 07/30/19 17:29 Dose: 650 mg Documented by: [id number] Admin: 07/30/19 01:02 Dose: 650 mg Documented by: [id number] Hydrocodone Bitart/Acetaminophen ([place]cupine 5/325) 1 - 2 tab PO Q4H PRN PRN Reason: Moderate Pain Stop: 08/13/19 15:51 Last Admin: 07/31/19 05:32 Dose: 2 tab Documented by: [id number] Admin: 07/30/19 23:23 Dose: 2 tab Documented by: [id number] Buprenorphine HCl (Subutex) 8 mg SL TID [facility] Stop: 08/29/19 08:59 Last Admin: 07/30/19 22:06 Dose: 8 mg Documented by: [id number] Admin: 07/30/19 17:29 Dose: 8 mg Documented by: [id number] Admin: 07/30/19 08:40 Dose: 8 mg Documented by: [id number] Sodium Chloride (Nss 1000ml) 1,000 mls @ 80 mls/hr IV .[id number] [facility] Stop: 08/28/19 23:48 Last Infusion: 07/31/19 04:51 Dose: 0 mls/hr Documented by: [id number] Admin: 07/31/19 01:56 Dose: 80 mls/hr Documented by: [id number] Infusion: 07/31/19 01:56 Dose: 80 mls/hr Documented by: [id number] Admin: 07/30/19 16:16 Dose: 80 mls/hr Documented by: [id number] Infusion: 07/30/19 14:32 Dose: 80 mls/hr Documented by: [id number] Infusion: 07/30/19 05:29 Dose: 80 mls/hr Documented by: [id number] Infusion: 07/30/19 04:29 Dose: 0 mls/hr Documented by: [id number] Admin: 07/30/19 01:01 Dose: 80 mls/hr Documented by: [id number] Vancomycin HCl 1,000 mg/ (Sodium Chloride) 270 mls @ 125 mls/hr IV Q8H BIJU Stop: 08/09/19 01:59 Last Admin: 07/31/19 06:07 Dose: 125 mls/hr Documented by: [id number] Infusion: 07/31/19 00:30 Dose: 0 mls/hr Documented by: [id number] Admin: 07/30/19 22:06 Dose: 125 mls/hr Documented by: [id number] Infusion: 07/30/19 18:25 Dose: 0 mls/hr Documented by: [id number] Admin: 07/30/19 16:15 Dose: 125 mls/hr Documented by: [id number] Infusion: 07/30/19 07:49 Dose: 0 mls/hr Documented by: [id number] Admin: 07/30/19 05:28 Dose: 125 mls/hr Documented by: [id number] Piperacillin Sod/Tazobactam (Sod 3.375 gm/ Dextrose) 115 mls @ 28.75 mls/hr IV Q8H BIJU; Protocol Stop: 08/09/19 01:59 Last Infusion: 07/31/19 06:08 Dose: 0 mls/hr Documented by: [id number] Admin: 07/31/19 01:56 Dose: 28.8 mls/hr Documented by: [id number] Infusion: 07/30/19 23:16 Dose: 0 mls/hr Documented by: [id number] Admin: 07/30/19 19:16 Dose: 28.8 mls/hr Documented by: [id number] Infusion: 07/30/19 14:26 Dose: 0 mls/hr Documented by: [id number] Admin: 07/30/19 10:26 Dose: 28.8 mls/hr Documented by: [id number] Infusion: 07/30/19 05:28 Dose: 0 mls/hr Documented by: [id number] Admin: 07/30/19 01:01 Dose: 28.8 mls/hr Documented by: [id number] Morphine Sulfate (Morphine Sulfate) 1 - 4 mg IV Q2H PRN PRN Reason: Severe Pain Stop: 08/13/19 15:51 Last Admin: 07/31/19 04:13 Dose: 4 mg Documented by: [id number] Admin: 07/31/19 01:59 Dose: 2 mg Documented by: [id number] Admin: 07/30/19 20:39 Dose: 1 mg Documented by: [id number]
--- NOTE | 2019-07-31 09:00 | Surgery Progress Note ---
Date of Service July 31, 2019 Assessment & Plan (1) Pseudoaneurysm of brachial artery: Pt POD #1 after resection of presumably infected/inflammatory LUE pseudoaneurysm. Dressing changed d/t saturation. Gram stain + GPC, awaiting final cx. Pt on zosyn and vanco for coverage. Start PT for LUE contracture. BLE vein mapping for possible vein harvest for LUE bypass. Subjective 33 yo m POD #1 after L arm pseudoaneurysm resection by Dr Wayne, seen in f/u today. Pt admits pain L arm incision. Admits edema from elbow to hand, believes slightly improved. States pain L arm slightly improved compared to pre op. States L fingers numb depending on position, but denies pain in hand/fingers. Review of Systems Review of Systems: All systems reviewed & are unremarkable except as noted in HPI & below Physical Exam Constitutional: WD/WN, vitals as above + disheveled and cooperative; not in distress Respiratory: normal respiratory effort, lungs clear to auscultation Cardiovascular: Rate/Rhythm: regular rate and regular rhythm Vessels: normal peripheral pulses, brachial pulses present (LUE incision partially closed, moderate bloody/serous drainage, dressing c ) and radial pulses present (with doppler); + ulnar pulses abnormal Extremities: normal capillary refill and + edema (L forearm/hand) Gastrointestinal (Abdomen): normal bowel sounds, soft, nontender, no hepatosplenomegaly Musculoskeletal: no cyanosis or clubbing, extremities motor strength 5/5 E xtremities: + limited ROM of extremities (L arm elbow early contracture) Neurologic: moves all extremities; no focal motor deficits and not confused Psychiatric: A+Ox3, euthymic affect Results & Data Vital Signs (Past 12 Hours) Vital Signs Temp Pulse Pulse Pulse Resp BP BP 07/31/19 07:09 36.8 C 64 10 L 127/47 L 07/31/19 03:00 37 C 78 18 92/39 L 07/31/19 00:02 37 C 76 20 121/56 L 07/30/19 22:02 07/30/19 21:00 64 16 117/53 L 07/30/19 20:50 82 12 Pulse Ox 07/31/19 07:09 92 07/31/19 03:00 95 07/31/19 00:02 95 07/30/19 22:02 98 07/30/19 21:00 07/30/19 20:50
--- NOTE | 2019-07-31 09:26 | Pharmacy Report ---
Pharmacy Abx Dose Short Note - Date of Service July 31, 2019 - Assessment & Plan Assessment 33 year old M receiving vancomycin for treatment of arm abscess. Day # 3 of antimicrobial therapy. Plan Vancomycin * Trough level of 16.3 mcg/mL is therapeutic * Continue dose of 1000 mg IV every 8 hours * Goal trough level : 15 to 20 mcg/mL * Repeat Trough level ordered for: 08/01/19 @ 1109 Pharmacy will continue to follow and will adjust dose/frequency as necessary. Thank you.
[2019-07-31] MEDS: buprenorphine HCL 8 MG SUBL SL SCH ×3 (10:09→20:53)
--- NOTE | 2019-07-31 11:13 | Ultrasound Report ---
US venous mapping LE BI CLINICAL HISTORY: pre op for possible brachial bypass COMPARISON STUDY: None FINDINGS: The right greater saphenous vein within the proximal lower leg measures a maximum width of 3.3 mm at a depth of 11.4 mm. Distally at the ankle the right greater saphenous vein measures a with a 1 mm at a depth of 3.3 mm. The right lesser saphenous vein at the level of the knee measures 2.6 mm in diameter at a depth of 13.1 mm. The left greater saphenous vein within the proximal lower leg measures a maximum width of 3.9 mm at a depth of 8.6 mm. Distally at the ankle the right greater saphenous vein measures a with a 1.8 mm at a depth of 3.4 mm. The right lesser saphenous vein at the level of the knee measures 1.5 mm in diamet er at a depth of 11.4 mm. IMPRESSION: Bilateral lower extremity venous mapping as described above. Please refer to the technol armida's notes for full description. Electronically signed by: Thuan Mann M.D. 07/31/2019 11:12 AM
--- NOTE | 2019-07-31 13:42 | Hospitalist Progress Note ---
Date of Service July 31, 2019 Assessment & Plan (1) Pseudoaneurysm of brachial artery: Admitted with the left elbow swelling with the redness and pain Noted to have pseudoaneurysm of the brachial artery Status post resection of the infected/inflammatory right upper extremity pseudoaneurysm on 07/30 Appreciate vascular surgery input and recommendation Complains to have some pain today Will have revision surgery sometime later (2) Left elbow pain: Secondary to infected IV drug side with aneurysm as mentioned earlier (3) Cellulitis of left elbow: Has been getting intravenous antibiotic with Vanco and Zosyn Await cultures (4) Intravenous drug abuse: Has been using Subutex(prescribed as sublingual tablet) through intravenously The chart mentioned that he has history of heroin abuse and has been on methadone for that Strongly advised to quit using intravenous drugs History of hepatitis C And that has been treated Subjective 07/31 The patient was seen and examined in telemetry unit in presence of the girlfriend He was seen in the ICU yesterday following surgery He denies any symptoms as of today except some pain involving the left elbow Denies any numbness and/or tingling in the left upper extremity No fever, chills, no abdominal pain, nausea and/or vomiting Review of Systems Review of Systems: All systems reviewed and are unremarkable except as noted below Musculoskeletal: Left elbow is bandaged status post surgery Physical Exam Physical Exam: Lying in bed comfortably Constitutional: + thin; no acute distress and not ill appearing Eyes: PERRL, conjunctivae normal, anicteric sclerae ENMT: external ear and nose normal, oropharynx normal Neck: trachea midline, no thyromegaly Respiratory: normal respiratory effort; no respiratory distress Auscultation: lungs clear to auscultation bilaterally Cardiovascular: Rate/Rhythm: regular rate and regular rhythm Heart Sounds: no murmur Gastrointestinal (Abdomen): Inspection/Auscultation: abdomen normal to inspection and normal bowel sounds Percussion/Palpation: abdomen soft; abdomen nontender Musculoskeletal: No acute arthritis in any joints Neurologic: Alert, awake and oriented x3 Results & Data Vital Signs (Past 12 Hours) Vital Signs Temp Pulse Resp BP Pulse Ox 07/31/19 10:45 36.9 C 70 12 118/54 L 98 07/31/19 07:09 36.8 C 64 10 L 127/47 L 92 07/31/19 03:00 37 C 78 18 92/39 L 95 Laboratory Results Short CBC 07/30/19 07/31/19 Range/Units 16:10 14:33 WBC 9.33 6.92 (4.8-10.8) K/uL Hgb 9.6 L 8.6 L (14.0-18.0) g/dL Hct 29.9 L 26.5 L (42-52) % Plt Count 447 H 409 H (130-400) K/uL BMP 07/30/19 07/31/19 16:10 14:33 Sodium 139 Potassium 3.9 Chloride 105 Carbon Dioxide 31 BUN 4 L Creatinine 0.73 0.92 Glucose 95 Calcium 8.6 Medications Administered Current Inpatient Medications Acetaminophen (Tylenol) 650 mg PO Q4H PRN PRN Reason: Pain or Fever Stop: 08/28/19 23:48 Last Admin: 07/30/19 17:29 Dose: 650 mg Documented by: Hydrocodone Bitart/Acetaminophen ([place] 5/325) 1 - 2 tab PO Q4H PRN PRN Reason: Moderate Pain Stop: 08/13/19 15:51 Last Admin: 07/31/19 13:48 Dose: 2 tab Documented by: Buprenorphine HCl (Subutex) 8 mg SL TID [facility] Stop: 08/29/19 08:59 Last Admin: 07/31/19 15:01 Dose: 8 mg Documented by: Sodium Chloride (Nss 1000ml) 1,000 mls @ 80 mls/hr IV .[id number] [facility] Stop: 08/28/19 23:48 Last Infusion: 07/31/19 04:51 Dose: 0 mls/hr Documented by: Vancomycin HCl 1,000 mg/ (Sodium Chloride) 270 mls @ 125 mls/hr IV Q8H [facility] Stop: 08/09/19 01:59 Last Admin: 07/31/19 15:01 Dose: 125 mls/hr Documented by: Piperacillin Sod/Tazobactam (Sod 3.375 gm/ Dextrose) 115 mls @ 28.75 mls/hr IV Q8H [facility]; Protocol Stop: 08/09/19 01:59 Last Infusion: 07/31/19 14:10 Dose: Infused Documented by: Miscellaneous Information (Consult) 1 ea N/A UD PRN PRN Reason: Consult Stop: 08/28/19 18:39 Miscellaneous Information (Consult) 1 ea N/A UD PRN PRN Reason: Consult Stop: 08/28/19 18:39 Nitroglycerin (Nitrostat) 0.4 mg SL UD PRN PRN Reason: Chest Pain Stop: 08/28/19 23:48 Ondansetron HCl (Zofran) 4 mg IV Q6H PRN PRN Reason: Nausea And Vomiting Stop: 08/29/19 15:51
[2019-07-31 14:46] LABS: Basophils # (auto) 0.03 K/uL (0-0.2); Basophils % (auto) 0.4 %; Eosinophils # (auto) 0.28 K/uL (0-0.5); Hematocrit (blood only) 26.5 % (42-52); Hemoglobin 8.6 g/dL (14.0-18.0); Immature Granulocytes # (auto) 0.02 K/uL (0.00-0.02); Immature Granulocytes % (auto) 0.3 %; Lymphocytes # (auto) 1.72 K/uL (1.2-3.4); Lymphocytes % (auto) 24.9 %; Mean Corpuscular Hemoglobin 28.3 pg (25-34); Mean Corpuscular Hgb Conc 32.5 g/dL (32-36); Mean Corpuscular Volume 87.2 fL (80-100); Mean Platelet Volume 8.1 fL (7.4-10.4); Monocytes # (auto) 0.68 K/uL (0.11-0.59); Monocytes % (auto) 9.8 %; Neutrophils # (auto) 4.19 K/uL (1.4-6.5); Neutrophils % (auto) 60.6 %; Platelet Count 409 K/uL (130-400); RDW Standard Deviation 44.7 fL (36.4-46.3); Red Blood Count 3.04 M/uL (4.7-6.1); White Blood Count 6.92 K/uL (4.8-10.8)
[2019-07-31 15:03] LABS: BUN Creatinine Ratio 4.9 (10-20); Calcium 8.6 mg/dl (8.5-10.1); Creatinine Clr Calc Pharmacy 105.9 ml/min; Est GFR (African American) 125.3; Est GFR (Non-African American) 108.1; Magnesium 2.1 mg/dl (1.8-2.4); Potassium 3.9 mmol/L (3.5-5.1)
[2019-07-31 15:04] LABS: Phosphorus 2.6 mg/dl (2.5-4.9)
[2019-08-01] MEDS: PIPERACILLIN/TAZOBACTAM 3.375 GM in DEXTROSE 5% 100 ML IV SCH ×3 (03:12→18:29)
[2019-08-01] MEDS: ACETAMINOPHEN 325 MG TAB PO PRN (03:18)
[2019-08-01] MEDS ORDERED: MoRPHine SULFATE 4 MG/ML 1 ML CARP\\VIAL IV STA (04:42)
[2019-08-01] MEDS: VANCOMYCIN HCL 1,000 MG in SODIUM CHLORIDE 0.9% 250 ML IV SCH ×3 (06:04→21:15)
[2019-08-01] MEDS: HYDROCODONE/ACETAMOPHEN 5/325MG TAB PO PRN ×3 (08:31→22:37)
[2019-08-01] MEDS: buprenorphine HCL 8 MG SUBL SL SCH ×3 (08:31→21:14)
--- NOTE | 2019-08-01 08:39 | Hospitalist Progress Note ---
Date of Service August 01, 2019 Assessment & Plan (1) Pseudoaneurysm of brachial artery: Admitted with the left elbow swelling with the redness and pain Noted to have pseudoaneurysm of the brachial artery Status post resection of the infected/inflammatory right upper extremity pseudoaneurysm on 07/30 Appreciate vascular surgery input and recommendation Complains to have some pain after surgery, now on tylenol, norco, added ibuprofen (and suboxone) Will have revision surgery sometime later (2) Left elbow pain: Secondary to infected IV drug side with aneurysm as mentioned earlier (3) Cellulitis of left elbow: Has been getting intravenous antibiotic with Vanco and Zosyn Await cultures Blood cltx - negative Wound cltx - posit. for Staph aureus and Group F strep, sensitivities to follow (4) Intravenous drug abuse: Has been using Subutex(prescribed as sublingual tablet) through intravenously The chart mentioned that he has history of heroin abuse and has been on methadone for that Strongly advised to quit using intravenous drugs History of hepatitis C And that has been treated Subjective Young male lying in bed, in no acute distress. Family at the bedside. Has some pain in his left elbow area status post surgery. Denies any fevers, chills, chest pain, shortness of breath, abdominal pain, nausea or vomiting. Review of Systems Review of Systems: All systems reviewed and are unremarkable except as noted below Constitutional: no fever and no chills Respiratory: no cough and no dyspnea Cardiovascular: no chest pain and no palpitations Gastrointestinal: no abdominal pain, no nausea and no vomiting Musculoskeletal: Left elbow is bandaged status post surgery Physical Exam Physical Exam: Physical Exam: Young male lying in bed comfortably Constitutional: + thin; no acute distress and not ill appearing Eyes: PERRL, EOMI, conjunctivae normal, anicteric sclerae ENMT: external ear and nose normal, oropharynx normal Neck: trachea midline, no thyromegaly Respiratory: normal respiratory effort; no respiratory distress Auscultation: lungs clear to auscultation bilaterally Cardiovascular: Rate/Rhythm: regular rate and regular rhythm Heart Sounds: no murmur Gastrointestinal (Abdomen): Inspection/Auscultation: abdomen normal to inspection and normal bowel sounds Percussion/Palpation: abdomen soft; abdomen nontender Musculoskeletal: No acute arthritis in any joints, moves all 4 extremities spontaneously, clean dressings applied to left arm/elbow area post surg. Neurologic: Alert, awake and oriented x3 Results & Data Vital Signs (Past 12 Hours) Vital Signs Temp Pulse Pulse Resp BP Pulse Ox 08/01/19 08:14 36.9 C 69 12 116/78 96 08/01/19 03:30 36.9 C 70 18 98/32 L 95 08/01/19 00:05 37 C 55 L 16 91/42 L 99 07/31/19 23:20 58 L Laboratory Results 08/01/19 08/01/19 07/31/19 Range/Units 08:18 08:16 14:33 WBC Cancelled 6.92 (4.8-10.8) K/uL RBC Cancelled 3.04 L (4.7-6.1) M/uL Hgb Cancelled 8.6 L (14.0-18.0) g/dL Hct Cancelled 26.5 L (42-52) % MCV Cancelled 87.2 (80-100) fL MCH Cancelled 28.3 (25-34) pg MCHC Cancelled 32.5 (32-36) g/dL RDW Std Deviation Cancelled 44.7 (36.4-46.3) fL RDW Coeff of David Cancelled 14.0 (11.5-14.5) % Plt Count Cancelled 409 H (130-400) K/uL MPV Cancelled 8.1 (7.4-10.4) fL Immature Gran % (Auto) Cancelled 0.3 % Neut % (Auto) Cancelled 60.6 % Lymph % (Auto) Cancelled 24.9 % Mccone % (Auto) Cancelled 9.8 % Eos % (Auto) Cancelled 4.0 % Baso % (Auto) Cancelled 0.4 % Immature Gran # (Auto) Cancelled 0.02 (0.00-0.02) K/uL Neut # (Auto) Cancelled 4.19 (1.4-6.5) K/uL Lymph # (Auto) Cancelled 1.72 (1.2-3.4) K/uL Mccone # (Auto) Cancelled 0.68 H (0.11-0.59) K/uL Eos # (Auto) Cancelled 0.28 (0-0.5) K/uL Baso # (Auto) Cancelled 0.03 (0-0.2) K/uL Absolute Nucleated RBC Cancelled Nucleated RBC % (auto) Cancelled Neutrophils % (Manual) Cancelled Band Neutrophils % Cancelled Lymphocytes % (Manual) Cancelled Prolymphocyte % Cancelled Reactive Lymphs % (Man) Cancelled Monocytes % (Manual) Cancelled Eosinophils % (Manual) Cancelled Basophils % (Manual) Cancelled Metamyelocytes % (Man) Cancelled Myelocytes % (Man) Cancelled Promyelocytes % (Man) Cancelled Blast Cells % (Manual) Cancelled Plasma Cell % (Manual) Cancelled Other Cells % Cancelled Nucleated RBC % Cancelled Neutrophils # (Manual) Cancelled Band Neutrophils # Cancelled Total Absolute Neuts Cancelled Lymphocytes # (Manual) Cancelled Prolymphocyte # Cancelled Reactive Lymphs # Cancelled Total Abs Lymphocytes Cancelled Monocytes # (Manual) Cancelled Eosinophils # (Manual) Cancelled Basophils # (Manual) Cancelled Metamyelocytes # (Man) Cancelled Myelocytes # (Manual) Cancelled Promyelocytes # (Man) Cancelled Blast Cells # (Man) Cancelled Plasma Cell # (Manual) Cancelled Other Cells # Cancelled Nucleated RBCs # (Man) Cancelled Hypersegmented Neuts Cancelled Hyposegmented Neuts Cancelled Hypogranular Neuts Cancelled Large Granular Lymphs Cancelled # Lrg Granular Lymphs Cancelled Hairy Cells Cancelled Smudge Cells Cancelled Toxic Granulation Cancelled Toxic Vacuolation Cancelled Dohle Bodies Cancelled Tima Rods Cancelled Platelet Estimate Cancelled Hypogranular Platelets Cancelled Clumped Platelets Cancelled Giant Platelets Cancelled Platelet Satelliting Cancelled RBC Morphology Cancelled Polychromasia Cancelled Hypochromasia Cancelled Poikilocytosis Cancelled Basophilic Stippling Cancelled Anisocytosis Cancelled Microcytosis Cancelled Macrocytosis Cancelled Spherocytes Cancelled Pappenheimer Bodies Cancelled Sickle Cells Cancelled Target Cells Cancelled Tear Drop Cells Cancelled Ovalocytes Cancelled Stomatocytes Cancelled Rolon-[place] Bodies Cancelled Echinocytes Cancelled Acanthocytes (Spur) Cancelled Rouleaux Cancelled RBC Agglutinates Cancelled Schistocytes Cancelled RBC Morph Comment Cancelled Sezary Cell Cancelled Sodium Pending (136-145) mmol/L Potassium Pending (3.5-5.1) mmol/L Chloride Pending (98-107) mmol/L Carbon Dioxide Pending (21-32) mmol/L Anion Gap Pending (3-11) BUN Pending (7-18) mg/dl Creatinine Pending (0.6-1.4) mg/dl Est Cr Clr Drug Dosing Pending ml/min Est GFR ( Amer) Pending Est GFR (Non-Af Amer) Pending BUN/Creatinine Ratio Pending (10-20) Glucose Pending (70-99) mg/dl Calcium Pending (8.5-10.1) mg/dl Phosphorus (2.5-4.9) mg/dl Magnesium (1.8-2.4) mg/dl 07/31/19 Range/Units 14:33 WBC (4.8-10.8) K/uL RBC (4.7-6.1) M/uL Hgb (14.0-18.0) g/dL Hct (42-52) % MCV (80-100) fL MCH (25-34) pg MCHC (32-36) g/dL RDW Std Deviation (36.4-46.3) fL RDW Coeff of David (11.5-14.5) % Plt Count (130-400) K/uL MPV (7.4-10.4) fL Immature Gran % (Auto) % Neut % (Auto) % Lymph % (Auto) % Mccone % (Auto) % Eos % (Auto) % Baso % (Auto) % Immature Gran # (Auto) (0.00-0.02) K/uL Neut # (Auto) (1.4-6.5) K/uL Lymph # (Auto) (1.2-3.4) K/uL Mccone # (Auto) (0.11-0.59) K/uL Eos # (Auto) (0-0.5) K/uL Baso # (Auto) (0-0.2) K/uL Absolute Nucleated RBC Nucleated RBC % (auto) Neutrophils % (Manual) Band Neutrophils % Lymphocytes % (Manual) Prolymphocyte % Reactive Lymphs % (Man) Monocytes % (Manual) Eosinophils % (Manual) Basophils % (Manual) Metamyelocytes % (Man) Myelocytes % (Man) Promyelocytes % (Man) Blast Cells % (Manual) Plasma Cell % (Manual) Other Cells % Nucleated RBC % Neutrophils # (Manual) Band Neutrophils # Total Absolute Neuts Lymphocytes # (Manual) Prolymphocyte # Reactive Lymphs # Total Abs Lymphocytes Monocytes # (Manual) Eosinophils # (Manual) Basophils # (Manual) Metamyelocytes # (Man) Myelocytes # (Manual) Promyelocytes # (Man) Blast Cells # (Man) Plasma Cell # (Manual) Other Cells # Nucleated RBCs # (Man) Hypersegmented Neuts Hyposegmented Neuts Hypogranular Neuts Large Granular Lymphs # Lrg Granular Lymphs Hairy Cells Smudge Cells Toxic Granulation Toxic Vacuolation Dohle Bodies Tima Rods Platelet Estimate Hypogranular Platelets Clumped Platelets Giant Platelets Platelet Satelliting RBC Morphology Polychromasia Hypochromasia Poikilocytosis Basophilic Stippling Anisocytosis Microcytosis Macrocytosis Spherocytes Pappenheimer Bodies Sickle Cells Target Cells Tear Drop Cells Ovalocytes Stomatocytes Rolon-[place] Bodies Echinocytes Acanthocytes (Spur) Rouleaux RBC Agglutinates Schistocytes RBC Morph Comment Sezary Cell Sodium 139 (136-145) mmol/L Potassium 3.9 (3.5-5.1) mmol/L Chloride 105 (98-107) mmol/L Carbon Dioxide 31 (21-32) mmol/L Anion Gap 3.0 (3-11) BUN 4 L (7-18) mg/dl Creatinine 0.92 (0.6-1.4) mg/dl Est Cr Clr Drug Dosing 105.9 ml/min Est GFR ( Amer) 125.3 Est GFR (Non-Af Amer) 108.1 BUN/Creatinine Ratio 4.9 L (10-20) Glucose 95 (70-99) mg/dl Calcium 8.6 (8.5-10.1) mg/dl Phosphorus 2.6 (2.5-4.9) mg/dl Magnesium 2.1 (1.8-2.4) mg/dl Medications Administered Current Inpatient Medications Acetaminophen (Tylenol) 650 mg PO Q4H PRN PRN Reason: Pain or Fever Stop: 08/28/19 23:48 Last Admin: 08/01/19 03:18 Dose: 650 mg Documented by: Hydrocodone Bitart/Acetaminophen ([place] 5/325) 1 - 2 tab PO Q4H PRN PRN Reason: Moderate Pain Stop: 08/13/19 15:51 Last Admin: 08/01/19 08:31 Dose: 2 tab Documented by: Buprenorphine HCl (Subutex) 8 mg SL TID [facility] Stop: 08/29/19 08:59 Last Admin: 08/01/19 08:31 Dose: 8 mg Documented by: Sodium Chloride (Nss 1000ml) 1,000 mls @ 80 mls/hr IV .[id number] [facility] Stop: 08/28/19 23:48 Last Infusion: 08/01/19 06:05 Dose: 0 mls/hr Documented by: Vancomycin HCl 1,000 mg/ (Sodium Chloride) 270 mls @ 125 mls/hr IV Q8H [facility] Stop: 08/09/19 01:59 Last Infusion: 08/01/19 08:14 Dose: Infused Documented by: Piperacillin Sod/Tazobactam (Sod 3.375 gm/ Dextrose) 115 mls @ 28.75 mls/hr IV Q8H [facility]; Protocol Stop: 08/09/19 01:59 Last Infusion: 08/01/19 07:12 Dose: Infused Documented by: Miscellaneous Information (Consult) 1 ea N/A UD PRN PRN Reason: Consult Stop: 08/28/19 18:39 Miscellaneous Information (Consult) 1 ea N/A UD PRN PRN Reason: Consult Stop: 08/28/19 18:39 Nitroglycerin (Nitrostat) 0.4 mg SL UD PRN PRN Reason: Chest Pain Stop: 08/28/19 23:48 Ondansetron HCl (Zofran) 4 mg IV Q6H PRN PRN Reason: Nausea And Vomiting Stop: 08/29/19 15:51
[2019-08-01 08:57] LABS: BUN Creatinine Ratio 7.5 (10-20); Calcium 8.8 mg/dl (8.5-10.1); Creatinine Clr Calc Pharmacy 128.1 ml/min; Est GFR (African American) 137.2; Est GFR (Non-African American) 118.4; Potassium 3.8 mmol/L (3.5-5.1)
[2019-08-01 09:27] LABS: Hematocrit (blood only) 27.8 % (42-52); Hemoglobin 8.9 g/dL (14.0-18.0); Mean Corpuscular Hemoglobin 27.8 pg (25-34); Mean Corpuscular Volume 86.9 fL (80-100); Mean Platelet Volume 8.2 fL (7.4-10.4); Platelet Count 406 K/uL (130-400); RDW Coefficient of Variation 13.8 % (11.5-14.5); RDW Standard Deviation 44.6 fL (36.4-46.3); White Blood Count 8.02 K/uL (4.8-10.8)
[2019-08-01 10:08] LABS: Basophils # (auto) 0.04 K/uL (0-0.2); Basophils % (auto) 0.5 %; Eosinophils # (auto) 0.43 K/uL (0-0.5); Eosinophils % (auto) 5.4 %; Immature Granulocytes % (auto) 1.2 %; Lymphocytes # (auto) 2.19 K/uL (1.2-3.4); Lymphocytes % (auto) 27.3 %; Monocytes # (auto) 0.87 K/uL (0.11-0.59); Monocytes % (auto) 10.8 %; Neutrophils # (auto) 4.39 K/uL (1.4-6.5); Neutrophils % (auto) 54.8 %
--- NOTE | 2019-08-01 10:42 | Surgery Progress Note ---
Date of Service August 01, 2019 Assessment & Plan (1) Pseudoaneurysm of brachial artery: Pt POD #2 after resection of presumably infected/inflammatory LUE pseudoaneurysm. Wound cx positive for MSSA. Pt on zosyn and vanco for coverage. Continue PT for LUE contracture. Present on Admission?: Yes Subjective 33 yo m POD #2 after L arm pseudoaneurysm resection by Dr Wayne, seen in f/u today. Pt admits pain L arm incision. States L fingers numb, but denies pain in hand/fingers. Edema improved. Review of Systems Review of Systems: All systems reviewed & are unremarkable except as noted in HPI & below Physical Exam Constitutional: WD/WN, vitals as above + disheveled and cooperative; not in distress Cardiovascular: Rate/Rhythm: regular rate and regular rhythm Vessels: brachial pulses present (LUE incision partially closed, moderate bloody/serous drainage, dressing c ), radial pulses present (with doppler. Also palmar arches present.) and ulnar pulses present (with doppler); + abnormal peripheral pulses Extremities: normal capillary refill and + edema (L forearm/hand, +2. Improved since yesterday.) Results & Data Vital Signs (Past 12 Hours) Vital Signs Temp Pulse Pulse Resp BP Pulse Ox 08/01/19 08:44 51 L 08/01/19 08:14 36.9 C 69 12 116/78 96 08/01/19 03:30 36.9 C 70 18 98/32 L 95 08/01/19 00:05 37 C 55 L 16 91/42 L 99 07/31/19 23:20 58 L
[2019-08-01] MEDS: SODIUM CHLORIDE 0.9% 1000ML 1,000 ML IV SCH ×2 (13:19→22:38)
[2019-08-01] MEDS ORDERED: VANCOMYCIN TROUGH ONE (13:30)
--- NOTE | 2019-08-01 14:40 | Pharmacy Report ---
Pharmacy Abx Dose Short Note - Date of Service August 01, 2019 - Assessment & Plan Assessment 33 year old M receiving vancomycin/zosyn for treatment of arm abscess. Culture currently growing MSSA and group F strep. If culture finalizes with no additional growth, may consider de-escalating to cefazolin. Day # 4 of antimicrobial therapy. Plan Vancomycin * Trough level of 16.4 mcg/mL is therapeutic * Continue dose of 1000mg IV every 8 hours * Goal trough level : 15 to 20 mcg/mL * Trough or random level ordered for: repeat as clinically indicated if therapy to continue Pharmacy will continue to follow and will adjust dose/frequency as necessary. Thank you.
[2019-08-01] MEDS ORDERED: IBUPROFEN 200 MG TAB PO PRN (15:04)
[2019-08-02] MEDS: PIPERACILLIN/TAZOBACTAM 3.375 GM in DEXTROSE 5% 100 ML IV SCH ×2 (02:00→10:18)
[2019-08-02] MEDS: HYDROCODONE/ACETAMOPHEN 5/325MG TAB PO PRN ×4 (02:31→15:41)
[2019-08-02] MEDS: VANCOMYCIN HCL 1,000 MG in SODIUM CHLORIDE 0.9% 250 ML IV SCH (05:34)
[2019-08-02] MEDS: buprenorphine HCL 8 MG SUBL SL SCH ×3 (09:04→21:35)
[2019-08-02] MEDS: SODIUM CHLORIDE 0.9% 1000ML 1,000 ML IV SCH (11:31)
[2019-08-02] MEDS: AMPICILLIN/SULBACTAM SOD 3,000 MG in 0.9 % SODIUM CHLORIDE 100 ML IV SCH (17:21)
--- NOTE | 2019-08-02 19:17 | Hospitalist Progress Note ---
Date of Service August 02, 2019 Assessment & Plan (1) Pseudoaneurysm of brachial artery: Admitted with the left elbow swelling with the redness and pain Noted to have pseudoaneurysm of the brachial artery Status post resection of the infected/inflammatory right upper extremity pseudoaneurysm on 07/30 Appreciate vascular surgery input and recommendation Complains to have some pain after surgery, now on tylenol, norco, added ibuprofen (and buprenorphine) Will have revision surgery sometime later (2) Left elbow pain: Secondary to infected IV drug side with aneurysm as mentioned earlier (3) Cellulitis of left elbow: Has been getting intravenous antibiotic with Vanco and Zosyn Blood cltx - negative Wound cltx - posit. for Staph aureus and Group F strep, sensitivities to follow - switched to IV unasyn today (08/02) , plan to switch likely to clindamycin on discharge (4) Intravenous drug abuse: Has been using Subutex(prescribed as sublingual tablet) through intravenously The chart mentioned that he has history of heroin abuse and has been on methadone for that Strongly advised to quit using intravenous drugs History of hepatitis C And that has been treated Subjective Young male sitting up, in no acute distress, eating. Has some mild pain in his left elbow area status post surgery, now well controlled. Denies any fevers, chills, chest pain, shortness of breath, abdominal pain, nausea or vomiting. Switched antibiotic to IV Unasyn today. Plan to switch to clindamycin most likely - on discharge. Review of Systems Review of Systems: All systems reviewed & are unremarkable except as noted in HPI & below All systems reviewed and are unremarkable except as noted below Constitutional: no fever and no chills Respiratory: no cough and no dyspnea Cardiovascular: no chest pain, no dyspnea on exertion and no palpitations Gastrointestinal: no abdominal pain, no nausea and no vomiting Musculoskeletal: Left elbow is bandaged status post surgery Physical Exam Physical Exam: Physical Exam: Young male sitting up in bed, eating Constitutional: + thin; no acute distress and not ill appearing Eyes: PERRL, EOMI, conjunctivae normal, anicteric sclerae ENMT: external ear and nose normal, oropharynx normal Neck: trachea midline, no thyromegaly Respiratory: normal respiratory effort; no respiratory distress Auscultation: lungs clear to auscultation bilaterally Cardiovascular: Rate/Rhythm: regular rate and regular rhythm Heart Sounds: no murmur Gastrointestinal (Abdomen): Inspection/Auscultation: abdomen normal to inspection and normal bowel sounds Percussion/Palpation: abdomen soft; abdomen nontender Musculoskeletal: No acute arthritis in any joints, moves all 4 extremities spontaneously, clean dressings applied to left arm/elbow area post surg. Neurologic: Alert, awake and oriented x3 Results & Data Vital Signs (Past 12 Hours) Vital Signs Temp Pulse Pulse Resp BP Pulse Ox 08/02/19 15:19 37.0 C 63 16 129/70 97 08/02/19 10:50 37.0 C 61 16 132/66 100 08/02/19 08:00 37.0 C 75 56 L 10 L 128/64 98 Medications Administered Current Inpatient Medications Acetaminophen (Tylenol) 650 mg PO Q4H PRN PRN Reason: Pain or Fever Stop: 08/28/19 23:48 Last Admin: 08/01/19 03:18 Dose: 650 mg Documented by: Hydrocodone Bitart/Acetaminophen ([place] 5/325) 1 - 2 tab PO Q4H PRN PRN Reason: Moderate Pain Stop: 08/13/19 15:51 Last Admin: 08/02/19 15:41 Dose: 2 tab Documented by: Buprenorphine HCl (Subutex) 8 mg SL TID [facility] Stop: 08/29/19 08:59 Last Admin: 08/02/19 14:32 Dose: 8 mg Documented by: Sodium Chloride (Nss 1000ml) 1,000 mls @ 80 mls/hr IV .[id number] [facility] Stop: 08/28/19 23:48 Last Admin: 08/02/19 11:31 Dose: 80 mls/hr Documented by: Ampicillin Sodium/Sulbactam Sodium 3,000 mg/ Sodium Chloride 108 mls @ 216 mls/hr IV Q6H [facility]; Protocol Stop: 08/08/19 00:29 Last Infusion: 08/02/19 17:51 Dose: Infused Documented by: Ibuprofen (Advil) 400 mg PO QID PRN PRN Reason: Moderate Pain Stop: 08/31/19 15:03 Last Admin: 08/01/19 16:12 Dose: 400 mg Documented by: Nitroglycerin (Nitrostat) 0.4 mg SL UD PRN PRN Reason: Chest Pain Stop: 08/28/19 23:48 Ondansetron HCl (Zofran) 4 mg IV Q6H PRN PRN Reason: Nausea And Vomiting Stop: 08/29/19 15:51
[2019-08-02] MEDS: OXYCODONE HCL IR 5 MG TAB (IMMEDIATE RELEASE) PO PRN (20:07)
[2019-08-03] MEDS ORDERED: CLINDAMYCIN HCL 150 MG CAP PO SCH
[2019-08-03] MEDS: OXYCODONE HCL IR 5 MG TAB (IMMEDIATE RELEASE) PO PRN ×5 (00:12→16:54)
[2019-08-03] MEDS: SODIUM CHLORIDE 0.9% 1000ML 1,000 ML IV SCH (00:13)
[2019-08-03] MEDS: AMPICILLIN/SULBACTAM SOD 3,000 MG in 0.9 % SODIUM CHLORIDE 100 ML IV SCH ×3 (01:13→11:36)
--- NOTE | 2019-08-03 08:21 | Hospitalist Progress Note ---
Date of Service August 03, 2019 Results & Data Vital Signs (Past 12 Hours) Vital Signs Temp Pulse Pulse Resp BP Pulse Ox 08/03/19 07:25 37.2 C 73 15 119/64 99 08/03/19 04:23 37.1 C 73 18 132/70 95 08/02/19 22:59 37.4 C 76 14 107/52 L 99 08/02/19 22:20 84 Medications Administered Current Inpatient Medications Acetaminophen (Tylenol) 650 mg PO Q4H PRN PRN Reason: Pain or Fever Stop: 08/28/19 23:48 Last Admin: 08/01/19 03:18 Dose: 650 mg Documented by: Buprenorphine HCl (Subutex) 8 mg SL TID [facility] Stop: 08/29/19 08:59 Last Admin: 08/03/19 08:27 Dose: 8 mg Documented by: Sodium Chloride (Nss 1000ml) 1,000 mls @ 80 mls/hr IV .[id number] [facility] Stop: 08/28/19 23:48 Last Admin: 08/03/19 00:13 Dose: 80 mls/hr Documented by: Ampicillin Sodium/Sulbactam Sodium 3,000 mg/ Sodium Chloride 108 mls @ 216 mls/hr IV Q6H [facility]; Protocol Stop: 08/08/19 00:29 Last Infusion: 08/03/19 06:13 Dose: Infused Documented by: Ibuprofen (Advil) 400 mg PO QID PRN PRN Reason: Moderate Pain Stop: 08/31/19 15:03 Last Admin: 08/01/19 16:12 Dose: 400 mg Documented by: Nitroglycerin (Nitrostat) 0.4 mg SL UD PRN PRN Reason: Chest Pain Stop: 08/28/19 23:48 Ondansetron HCl (Zofran) 4 mg IV Q6H PRN PRN Reason: Nausea And Vomiting Stop: 08/29/19 15:51 Oxycodone HCl (Roxicodone Immediate Rel) 5 - 10 mg PO Q4H PRN PRN Reason: Pain Stop: 08/16/19 19:51 Last Admin: 08/03/19 08:27 Dose: 10 mg Documented by:
[2019-08-03] MEDS: buprenorphine HCL 8 MG SUBL SL SCH ×2 (08:27→13:46)
--- NOTE | 2019-08-03 09:40 | Surgery Progress Note ---
Date of Service August 03, 2019 Assessment & Plan (1) Pseudoaneurysm of brachial artery: Pt POD #4 after resection of infected/inflammatory LUE pseudoaneurysm. Pt's wound significantly improved. Pt can be d/c from vascular standpoint if able to decide on an oral abx and arrange home nursing for L arm dressing changes and physical therapy for L elbow contracture. Dressing changes consist of xeroform in open area of wound, then cover with 4x4's and kerlix and change daily. Will see in office in 2 weeks to reeval. Subjective 33 yo m POD # 4 after LUE pseudoaneurysm resection, seen in f/u today. Pt c/o pain in RIGHT hand/wrist with edema since blood draw yesterday. States L arm pain and edema is improved. Denies any other new complaints. Review of Systems Review of Systems: All systems reviewed & are unremarkable except as noted in HPI & below Physical Exam Constitutional: WD/WN, vitals as above + disheveled and cooperative; not in distress Cardiovascular: Vessels: brachial pulses present (LUE incision partially closed, moderate bloody/serous drainage, dressing c ), radial pulses present (with doppler. Also palmar arches present.) and ulnar pulses present (with doppler); + abnormal peripheral pulses Extremities: normal capillary refill and + edema (L forearm/hand minimal, significantly improved. NO erythema) Gastrointestinal (Abdomen): normal bowel sounds, soft, nontender, no hepatosplenomegaly Musculoskeletal: no cyanosis or clubbing, extremities motor strength 5/5 Extremities: + limited ROM of extremities (L arm elbow early contracture) Skin: no rashes, warm and dry + ecchymosis (R hand/wrist, with local edema) Neurologic: moves all extremities; no focal motor deficits and not confused Psychiatric: A+Ox3, euthymic affect Results & Data Vital Signs (Past 12 Hours) Vital Signs Temp Pulse Pulse Resp BP Pulse Ox 08/03/19 07:25 37.2 C 73 15 119/64 99 08/03/19 04:23 37.1 C 73 18 132/70 95 08/02/19 22:59 37.4 C 76 14 107/52 L 99 08/02/19 22:20 84
--- NOTE | 2019-08-03 14:23 | Infectious Disease Consult ---
Date of Consultation August 03, 2019 Assessment & Plan (1) Cellulitis of left elbow: pt can transition to po clinda 300mg po tid x 21 days, suggest probiotic as well. will follow in 2 weeks to assess healing and extend abx if needed. ok for d/c from ID standpoint when otherwise stable (2) Pseudoaneurysm of brachial artery: History of Present Illness Attending Physician: Riky Bustillo MD pt admitted with increased swelling and pain in LUE after IVDA. CT found gas and 3cm collection consistent with pseudoaneurysm. He was taken to OR for I&D, cultures grew MSSA and GFS, he was on Vanco and changed to unasyn. ID consulted for d/c oral abx. family at bedside. pain controlled. no f/c. no drainage. states he would like to be d/c home later today with plans for home health and dressing changes. states he has surgery appt in 2 weeks. no abd pain, no n/v/d. able to move all digits, sensation intact. no cp, sob, cough. tolerating abx well. states he is allergic to bactrim and can not take keflex due to thrush and groin rash. Allergies Allergy/AdvReac Type Severity Reaction Status Date / Time ketorolac [From Toradol] Allergy Unknown Unverified 07/29/19 18:28 Sulfa (Sulfonamide Allergy Unknown Unverified 07/29/19 18:28 Antibiotics) tramadol Allergy Unknown Unverified 07/29/19 18:28 Home Medications Home Medications Medication Instructions Recorded Confirmed Type buprenorphine HCl 8 mg SUBLINGUAL TID 07/29/19 07/29/19 History naproxen sodium [Aleve] 1,100 mg PO Q8H PRN 07/29/19 07/29/19 History Patient History Medical History Hepatitis C Heroin use disorder, mild, on maintenance therapy, abuse History of pseudoaneurysm L brachial MRSA infection Surgical History [place] teeth extracted Family History Other No pertinent family history in first degree relatives Social History Preferred Language: Kazakh Communication Ability: Effective Policy Services Representative Required: No Beliefs That Will Affect Care: None marital status: Single Current Living Situation: Parent Current Living Situation Comment: mother Feels Safe at Home: Yes Safety Concerns: Feels Safe At This Time Smoking Status: Never smoker Hx Alcohol Use: No Hx Substance Use: Yes (Just my perscribed) substance use type: heroin Substance Use Type Other:: Subutex Review of Systems Review of Systems: All systems reviewed & are unremarkable except as noted in HPI & below Physical Exam Constitutional: WD/WN, vitals as above Eyes: PERRL, conjunctivae normal, anicteric sclerae ENMT: external ear and nose normal, oropharynx normal Neck: normal visual inspection Respiratory: normal respiratory effort, lungs clear to auscultation Cardiovascular: RRR, no murmur, no edema Gastrointestinal (Abdomen): normal bowel sounds, soft, nontender, no hepatosplenomegaly Musculoskeletal: no cyanosis or clubbing, extremities motor strength 5/5 Skin: no rashes, warm and dry + wound (dressing c/d/i, no erythema) Psychiatric: A+Ox3, euthymic affect Results & Data Vital Signs (Past 12 Hours) Vital Signs Temp Pulse Pulse Resp BP Pulse Ox 08/03/19 11:02 37.1 C 70 17 121/62 100 08/03/19 08:00 84 08/03/19 07:25 37.2 C 73 15 119/64 99 08/03/19 04:23 37.1 C 73 18 132/70 95 Laboratory Results Microbiology 07/30/19 12:13 Arm,Left Gram Stain - Final 07/30/19 12:13 Arm,Left Aerobic and Anaerobic Culture - Preliminary Staphylococcus aureus Group F Beta Strep 07/29/19 19:13 Blood Aerobic Blood Culture - Preliminary No growth in Aerobic bottle after 48 hours. 07/29/19 19:13 Blood Anaerobic Blood Culture - Final PG Care Time/CCT Total # of Minutes Spent Total Time Spent with Patient: Total time spent is greater than 50% in coordination of care (as documented) at patient's floor/unit and/or counseling patient:
[2019-08-03] MEDS ORDERED: CLINDAMYCIN HCL 150 MG CAP PO ONE (17:56)
[2019-08-03] MEDS ORDERED: CLINDAMYCIN 150MG HOME PACK PO ONE (17:58)
--- NOTE | 2019-08-03 18:10 | Discharge Summary ---
Date of Service August 03, 2019 Admission HPI Per Admitting Provider This is a 33-year-old male with past medical history significant for history of hepatitis C, status post treatment, history of I.V. drug abuse,last iv drug about 1 month ago, on 07/25/2019, he noticed swelling in the left elbow region and today morning, he also had some swelling in the left upper extremity, so we went to his pain clinic today and pain doctor tried to attempt to drain the swelling, but no pus came out, but started to bleed and the bleeding was stopped with Dermabond, but the patient came here. Here, in the Emergency Room, imaging studies showed 3 cm contrast collection over the medial aspect of the antecubital fossa, likely representing a pseudoaneurysm arising from the brachial artery and there is some gas in the subcutaneous tissues of the antecubital fossa. This is suggestive of either infection or injection site. The patient currently afebrile and hemodynamically stable and no leukocytosis. Denies any headache. No dizziness. No blurred vision. No earache. No sore throat. No difficulty swallowing. Appetite is okay. No chest pain. No shortness of breath. No cough. No nausea. No abdominal pain. Normal bowel and bladder movements. No blood in the stools. No black stools. No hematuria. No burning micturition. No swelling in the legs. No rash. Otherwise, active. Admission Exam Per Admitting Provider GENERAL: The patient is of moderate build, not in acute distress. VITAL SIGNS: Temperature 36.9, pulse 56, respiratory rate 20, blood pressure 131/59 and oxygen 98% on room air. HEENT: No pallor. No icterus. Pupils are equal, round and reactive to light. NECK: Supple. No neck masses. CARDIOVASCULAR: S1, S2 heard. Regular rate and rhythm. No murmur. No gallop. RESPIRATORY SYSTEM: Normal AP diameter. No accessory muscle use. No wheezing. No crackles. ABDOMEN: Soft. Bowel sounds present. Nontender. No distention. CENTRAL NERVOUS SYSTEM: Cranial nerves II through XII grossly nonfocal. EXTREMITIES: Left upper extremity swollen, slightly erythematous. Left brachial pulses are palpable. Principal Diagnosis Pseudoaneurysm of brachial artery, cellulitis of left elbow s/p resection of infected pseudoaneurysm Discharge Exam Physical Exam: Young male sitting up in bed, eating Constitutional: + thin; no acute distress and not ill appearing Eyes: PERRL, EOMI, conjunctivae normal, anicteric sclerae ENMT: external ear and nose normal, oropharynx normal Neck: trachea midline, no thyromegaly Respiratory: normal respiratory effort; no respiratory distress Auscultation: lungs clear to auscultation bilaterally Cardiovascular: Rate/Rhythm: regular rate and regular rhythm Heart Sounds: no murmur Gastrointestinal (Abdomen): Inspection/Auscultation: abdomen normal to inspection and normal bowel sounds Percussion/Palpation: abdomen soft; abdomen nontender Musculoskeletal: No acute arthritis in any joints, moves all 4 extremities spontaneously, clean dressings applied to left arm/elbow area post surg. Neurologic: Alert, awake and oriented x3 Discharge Data Allergies Allergy/AdvReac Type Severity Reaction Status Date / Time ketorolac [From Toradol] Allergy Unknown Unverified 07/29/19 18:28 Sulfa (Sulfonamide Allergy Unknown Unverified 07/29/19 18:28 Antibiotics) tramadol Allergy Unknown Unverified 07/29/19 18:28 Consultations 07/29/19 22:53 ED Decision to Admit Stat 07/30/19 08:00 Consult Vascular Surgery Routine 08/03/19 08:17 Consult Infectious Diseases Routine Procedures Performed Operation Date: 07/30/19 10:50 Actual Procedures p Resected Infected Pseudoaneurysm left arm(Left) - Braden Wayne MD Ordered Studies 07/29/19 18:18 CT elbow LT w con Stat IMPRESSION: 1. 3 cm collection of contrast within the medial aspect of the antecubital fossa, likely representing a pseudoaneurysm arising from the brachial artery. There is surrounding edema. 2. Gas present within the superficial medial soft tissues of the antecubital fossa. The findings are likely secondary to either an injection site, or soft tissue infection. 07/29/19 19:51 CT forearm LT w con Stat IMPRESSION: 1. No evidence of fracture 2. Gas within the subcutaneous tissues of the antecubital fossa. This is suggestive of either infection, or injection site. 3. 3 cm contrast collection within the medial aspect of the antecubital fossa, likely representing a pseudoaneurysm arising from the brachial artery 07/29/19 23:49 US venous doppler UE LT Routine IMPRESSION: No sonographic evidence of deep venous thrombosis. 12/03/19 08:13 US venous mapping LE BI Routine FINDINGS: The right greater saphenous vein within the proximal lower leg measures a maximum width of 3.3 mm at a depth of 11.4 mm. Distally at the ankle the right greater saphenous vein measures a with a 1 mm at a depth of 3.3 mm. The right lesser saphenous vein at the level of the knee measures 2.6 mm in diameter at a depth of 13.1 mm. The left greater saphenous vein within the proximal lower leg measures a maximum width of 3.9 mm at a depth of 8.6 mm. Distally at the ankle the right greater saphenous vein measures a with a 1.8 mm at a depth of 3.4 mm. The right lesser saphenous vein at the level of the knee measures 1.5 mm in diameter at a depth of 11.4 mm. IMPRESSION: Bilateral lower extremity venous mapping as described above. Please refer to the technologist's notes for full description. Hospital Course (1) Pseudoaneurysm of brachial artery: Admitted with the left elbow swelling with the redness and pain Noted to have pseudoaneurysm of the brachial artery Status post resection of the infected/inflammatory right upper extremity pseudoaneurysm on 07/30 Appreciate vascular surgery input and recommendation - edema significantly decreased, plan to follow up w/ vascular in 2 weeks Complains to have some pain after surgery, now on tylenol, added ibuprofen (and buprenorphine) (2) Left elbow pain: Secondary to infected IV drug side with aneurysm as mentioned earlier (3) Cellulitis of left elbow: Initially started on intravenous antibiotic with Vanco and Zosyn Blood cltx - negative Wound cltx - posit. for Staph aureus and Group F strep (sensitive to clindamycin) Switched to IV unasyn (08/02) , then switched to clindamycin on discharge - ID consulted, pt will be taking clindamycin 300 mg TID for next 21 days, and will follow up with ID in 2 weeks (4) Intravenous drug abuse: Has been using Subutex(prescribed as sublingual tablet) intravenously The chart mentioned that he has history of heroin abuse and has been on methadone for that Strongly advised to quit using intravenous drugs History of hepatitis C And that has been treated Total Time Total Time Spent Total Time Spent (In Minutes): 40 Total Time Includes: Examination of the Patient, Discharge Planning, Medication Reconciliation and Communication With Other Providers Discharge Plan Discharge Items Patient Disposition: Home - Home Health Services Reason For Visit: BLEEDING/LACERATION Discharge Diagnosis: Pseudoaneurysm of brachial artery, cellulitis of left elbow Activity: As commented below Activity Comment: as tolerated/ask for help as needed. PT for left elbow contracture Non-emergency contact: Primary Care Provider and Surgeon Call non-emergency contact if: you have any medication questions and your symptoms worsen Follow-up/Referrals: Tano Baum MD [Primary Care Provider] - Diet: Regular Addtl Attending Provider Instructions: You will need to follow-up with your primary care provider within 1 week of discharge. You will need to follow-up with vascular surgery in 2 weeks and with infectious disease also in 2 weeks time. You will be contacted from their offices. Take antibiotic, clindamycin, 300 mg 3 times daily for 21 days. Make sure to also take probiotic daily. Take Tylenol, 1000 mg 3 times a day. Max dose 3500 today. You can also take ibuprofen/Aleve 400 mg every 4 hours as needed. In the more severe pain, you can take oxycodone 5 mg every 4 hours. It is crucial that you do not inject yourself any IV substances, to prevent further vascular injury. Pending Studies at Discharge: No Stand-Alone Forms: My [facility], Smoking Cessation Medications and DC Order Prescriptions: New clindamycin HCl 300 mg capsule 300 mg PO Q8H 21 Days Qty: 63 RF: 0 Continued naproxen sodium [Aleve] 220 mg Tablet 1,100 mg PO Q8H PRN (Reason: Pain) RF: 0 buprenorphine HCl 8 mg Tablet, Sublingual 8 mg SUBLINGUAL TID RF: 0 Discharge Orders: Discharge Order (Routine); Ordered 08/03/19 Ordered By: Riky Bustillo Admission Data Admit Date/Time: 07/29/19 23:15 Attending Provider: Riky Bustillo Admit Provider: Rony Kim Primary Care Provider: Tano Baum Other Providers: Rony Kim ; Braden Wayne ; Sonam Medina ; Laurent Toth ; Otilia Scott Other Interventions: Discharge Summary Assessment (RN) Last Done: 08/03/19 18:09 DC Date/Time DO NOT enter until pt leaves facility: 08/03/19 18:45
== END 2019-08-03 18:45 | disposition home health service (06) | DRG 254 ==
LOC: ED 17:54 → SUATTDRO 23:15 → 2W 23:15 → 1E 07-30 15:51 → 2E 07-30 23:13
PROC: EV.EVAR (2019-07-30 10:50)

== ENCOUNTER 2019-08-11 20:34 | Inpatient (IN) ==
[2019-08-11] MEDS ORDERED: DAPTOmycin 300 MG in SYRINGE 0 ML IV ONE (21:15)
[2019-08-11] MEDS ORDERED: PIPERACILL/TAZOBAC CONSULT ACTIVE PRN (21:15)
[2019-08-11] MEDS ORDERED: PIPERACILLIN/TAZOBACTAM 3.375 GM/115 ML BAG IV STA (21:15)
--- NOTE | 2019-08-11 22:05 | Emergency Department Note ---
History of Present Illness General Chief complaint: Referred by Doctor Stated complaint: INFECTIOUS FLUID IN RIGHT WRIST Time Seen by Provider: 08/11/19 20:44 Source: patient Mode of arrival: ambulatory Limitations: no limitations History of Present Illness Maximum Pain Intensity: 6 This patient is a 33-year-old male with history of hepatitis C and IV drug abuse who presents to the emergency department for evaluation of right wrist pain/swelling. The patient states that he was admitted last week due to a pseudoaneurysm of his left arm which was repaired. He states that when he was admitted, they placed an IV in his right wrist and since then he has been having pain in the wrist, difficulty moving it and weakness of the wrist and hand. He states that he was seen by his primary care provider yesterday in follow-up and they performed a CT scan of the wrist which showed fluid in the wrist. He states they called and told him to come here to be admitted. He does admit he has been having some on and off swelling of the right wrist for the past few months. He denies any fevers. He denies any recent drug use. He reports pain in the wrist and rates the discomfort a 6/10. Pain is worsened with any mo vements of the wrist. Nothing has improved the pain. Patient is still taking clindamycin from his recent hospitalization. Home Medications Home Medications Medication Instructions Recorded Confirmed Type buprenorphine HCl 8 mg SUBLINGUAL TID 07/29/19 08/11/19 History clindamycin HCl 300 mg PO Q8H 08/11/19 08/11/19 History naproxen sodium 550 mg PO Q8H PRN 08/11/19 08/11/19 History ondansetron HCl [Zofran] 4 mg PO BID PRN 08/11/19 08/11/19 History Allergies Allergy/AdvReac Type Severity Reaction Status Date / Time ketorolac [From Toradol] Allergy Severe Anaphylaxis Verified 08/11/19 21:39 tramadol Allergy Intermediate Throat Verified 08/11/19 21:39 tightness,nausea,vomiting and diarrhea Sulfa (Sulfonamide Allergy Unknown Unknown Verified 08/11/19 21:39 Antibiotics) Past Med/Surg History Medical History Hepatitis C Heroin use disorder, mild, on maintenance therapy, abuse History of pseudoaneurysm L brachial MRSA infection Surgical History [place] teeth extracted Social History Preferred Language: Thai Communication Ability: Effective 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 Beliefs That Will Affect Care: None marital status: Single Current Living Situation: Parent Current Living Situation Comment: mother Feels Safe at Home: Yes Smoking Status: Never smoker Hx Alcohol Use: No Hx Substance Use: Yes (Just my perscribed) substance use type: heroin Substance Use Type Other:: Subutex Review of Systems A total of 10 systems reviewed and were otherwise negative Physical Exam Vital Signs Vital Signs - 24 hr 08/11/19 20:37 Temperature 36.9 C Temperature Source Oral Pulse Rate 80 Respiratory Rate 18 Respiratory Effort / Characteristics Non-Labored Spontaneous Respiratory Depth Normal Blood Pressure 142/70 H Blood Pressure Mean 94 Pulse Oximetry 97 Oxygen Delivery Method Room Air Sepsis Recent Fever Within 48 Hours No Sepsis Action Taken by Nursing No Action Required VITALS: Vitals are noted on the nurse's note and reviewed by myself. Vital signs stable. GENERAL: This is a 33-year-old male, in no acute distress, well-developed well- nourished. SKIN: The skin was without rashes. HEAD: Normocephalic atraumatic. EYES: Pupils equal round and reactive to light and accommodation. MOUTH: Mucous membranes moist. NECK: Supple without nuchal rigidity. No lymphadenopathy. HEART: Regular rate and rhythm without murmurs gallops or rubs. LUNGS: Clear to auscultation bilaterally without wheezes, rales or rhonchi. ABDOMEN: Positive bowel sounds x 4. Soft, nontender to palpation. MUSCULOSKELETAL: Moderate edema noted to the right wrist with no erythema or warmth. Patient has decreased range of motion of the right wrist in all directions. Keg Header strength of the right hand slightly decreased when compared to the left. Generalized tenderness to palpation over the right wrist. Radial pulse 2+. Capillary refill within 2 seconds. NEURO: Patient was alert and oriented to person place and time. Distal sensation intact over the right upper extremity. Course Consultations Consultation #1: Dr. Julio Jones [facility] hospitalist Administered Medications Discontinued Medications Piperacillin Sod/Tazobactam Sod (Zosyn) 3.375 gm in 115 mls @ 230 mls/hr IV NOW STA Stop: 08/11/19 21:44 Last Infusion: 08/11/19 23:13 Dose: 0 mls/hr Documented by: [id number] Admin: 08/11/19 22:40 Dose: 230 mls/hr Documented by: [id number] Daptomycin 300 mg/ Syringe 6 mls @ 3 mls/min IV NOW ONE; Protocol Stop: 08/11/19 21:16 Last Admin: 08/11/19 22:40 Dose: 3 mls/min Documented by: [id number] Medical Decision Making Differential Diagnosis Differential diagnosis includes septic arthritis, osteomyelitis, gout, pseudogout, osteoarthritis, fracture, among others. Medical Records Attestation: I reviewed the patient's medical records. Outside records were reviewed. CT scan was performed 08/10/2019 at a [facility] facility. Results below. CT upper extremity right wo contrast: Large radiocarpal and distal radioulnar joint effusions, with bony erosions involving the distal radius and possibly scaphoid. Constellation of findings is highly suggestive of septic arthritis and associated osteomyelitis, particularly in this patient with a known history of IV drug abuse and recent hospital admission for extremity infection. Laboratory Data Attestation: I reviewed the patient's lab results. Result diagrams: 08/11/19 22:31 08/11/19 22:31 Blood Pressure Blood Pressure Findings: Elevated blood pressure Blood Pressure Disposition: further management by hospitalist MDM Narrative The patient is a 33-year-old male who presents today complaining of right wrist pain/swelling. Patient had an outpatient CT performed yesterday which showed evidence of septic arthritis and osteomyelitis. Labs here revealed no leukocytosis, stable anemia and no concerning electrolyte abnormalities. Lactate was not elevated. Blood cultures obtained. Patient will be admitted for IV antibiotics and orthopedic consultation. He was given initial doses of Zosyn and daptomycin. Case was discussed with the [facility] hospitalist service for further care. Impression & Plan Septic arthritis of right wrist, Osteomyelitis Discharge Plan Visit Data *Final* Discharge Date/Time: 08/11/19 23:25 Chief Complaint: Referred by Doctor Stated Complaint: INFECTIOUS FLUID IN RIGHT WRIST ED Provider: Sen Ariza ED Midlevel Provider: Darleen Rollins Discharge Problem: Septic arthritis of right wrist, Osteomyelitis Patient Disposition: Admitted As Inpatient Discharge Instructions Interventions: ED Discharge Assessment Last Done: 08/11/19 23:25 Discharge Problem: Septic arthritis of right wrist Qualifiers: Septic arthritis organism: due to unspecified organism Qualified Code(s): M00.9 - Pyogenic arthritis, unspecified Osteomyelitis Qualifiers: Osteomyelitis type: unspecified type Osteomyelitis location: other site Qual ified Code(s): M86.9 - Osteomyelitis, unspecified
[2019-08-11 22:41] LABS: Basophils # (auto) 0.03 K/uL (0-0.2); Basophils % (auto) 0.4 %; Eosinophils # (auto) 0.26 K/uL (0-0.5); Eosinophils % (auto) 3.6 %; Hematocrit (blood only) 30.9 % (42-52); Immature Granulocytes # (auto) 0.01 K/uL (0.00-0.02); Immature Granulocytes % (auto) 0.1 %; Lymphocytes # (auto) 2.29 K/uL (1.2-3.4); Lymphocytes % (auto) 31.9 %; Mean Corpuscular Hemoglobin 28.1 pg (25-34); Mean Corpuscular Hgb Conc 32.4 g/dL (32-36); Mean Corpuscular Volume 86.8 fL (80-100); Mean Platelet Volume 8.1 fL (7.4-10.4); Monocytes # (auto) 0.71 K/uL (0.11-0.59); Monocytes % (auto) 9.9 %; Neutrophils # (auto) 3.87 K/uL (1.4-6.5); Neutrophils % (auto) 54.1 %; Platelet Count 611 K/uL (130-400); RDW Coefficient of Variation 14.4 % (11.5-14.5); RDW Standard Deviation 45.2 fL (36.4-46.3); Red Blood Count 3.56 M/uL (4.7-6.1); White Blood Count 7.17 K/uL (4.8-10.8)
[2019-08-11 23:00] LABS: Albumin Level 3.3 gm/dl (3.4-5.0); BUN Creatinine Ratio 17.3 (10-20); Calcium 9.4 mg/dl (8.5-10.1); Creatinine Clr Calc Pharmacy 68.4 ml/min; Est GFR (African American) 114.7; Potassium 4.2 mmol/L (3.5-5.1)
[2019-08-11 23:03] LABS: Albumin Globulin Ratio 0.6 (0.9-2); Bilirubin,Total 0.2 mg/dl (0.2-1); Globulin 5.5 gm/dl (2.5-4.0); Total Protein 8.8 gm/dl (6.4-8.2)
[2019-08-11] MEDS ORDERED: ONDANSETRON INJ 2 MG/ML 2 ML VIAL IV PRN (23:28)
[2019-08-11] MEDS ORDERED: POLYETHYLENE (MIRALAX) 17 GM PACK PO PRN (23:28)
[2019-08-11] MEDS ORDERED: DAPTOMYCIN CONSULT ACTIVE PRN (23:32)
--- NOTE | 2019-08-11 23:59 | History and Physical Report ---
DATE OF ADMISSION: 08/11/2019 CHIEF COMPLAINT: Possible septic arthritis and osteomyelitis of the right wrist. HISTORY OF PRESENT ILLNESS: This patient is a 33-year-old male with past medical history significant for I.V. drug abuse, history of hepatitis C, status post treatment, recently in the hospital with a pseudoaneurysm of the brachial artery in the left elbow region secondary to I.V. drugs. The pseudoaneurysm was resected. Blood cultures were negative, but wound cultures were positive for staph aureus and group beta strep, was seen by Infectious Disease, was discharged on clindamycin for the next 21 days. He was discharged on 08/03/2019. The patient states during the hospitalization, he had blood work done in the right wrist right/ hand region. He states his wrist was swollen. He thought it was hematoma and he was having pain and difficulty with movement of the wrist and fingers. He had a followup appointment with family doctor a couple of days ago. He states he has significant pain in the right wrist though swelling has come down, he was able to use his hand, but he was having significant pain and CAT scan was done on 08/10/[address] report mentions large radiocarpal and distal radial ulnar joint effusions with bone erosions involving the distal radius and possibly scaphoid. Findings are highly suggestive of septic arthritis and associated osteomyelitis. The patient currently has some erythema and some pain in the right wrist region on the medial aspect, but able to move his hand and fingers, hemodynamically stable. Denies any fever or chills. He states he was nauseous and had some loose stools from the antibiotic, but the probiotics are helping him. Denies any other complaints. Denies any headache. No blurred vision. No earache. No runny nose. No sore throat. No difficulty swallowing. Appetite is okay. No chest pain or shortness of breath. No cough. Currently, no nausea. No abdominal pain. No blood in stools or black stools. No burning micturition. No hematuria. No swelling in the legs. No rash except some erythematous changes in the right hand and wrist region. ALLERGIES: TORADOL, TRAMADOL AND SULFA ANTIBIOTICS. PAST MEDICAL HISTORY: As mentioned above. PAST SURGICAL HISTORY: Recent resection of pseudoaneurysm on the left brachial artery in the elbow region , hernia surgery as an infant and wisdom teeth removal. MEDICATIONS: Currently on clindamycin 300 mg p.o. t.i.d., Subutex sublingual 8mg po t.i.d., naproxen p.r.n. and Zofran p.r.n. FAMILY HISTORY: Significant for father has alcoholism. Maternal grandfather had heart disorder. SOCIAL HISTORY: Single. No smoking. Alcohol occasionally. History of iv drugs REVIEW OF SYMPTOMS: As per HPI. Rest of review of systems negative. PHYSICAL EXAMINATION: GENERAL: The patient is thin and frail, not in acute distress. VITAL SIGNS: Temperature 36.9, pulse is 80, respiratory rate 18, blood pressure 142/70 and oxygen 97% on room air. HEENT: No pallor. No icterus. Pupils are equal, round and reactive to light. NECK: No JVD. No neck masses. Supple. CARDIOVASCULAR: S1, S2 heard. Regular rate and rhythm. No murmur. No gallop. RESPIRATORY SYSTEM: Normal AP diameter. No accessory muscle use. No wheezing. No crackles. ABDOMEN: Soft. Bowel sounds present. Nontender. No distention. CENTRAL NERVOUS SYSTEM: Alert and awake and oriented. Nonfocal. EXTREMITIES: In the right wrist region, there is mild swelling and erythema seen with erythema extending into the hand and mild tenderness on palpation. Range of movements normal. LABORATORY DATA: Currently pending. ASSESSMENT AND PLAN: This patient is a 33-year-old male who was in the hospital for infected pseudoaneurysm of the left brachial artery in the elbow region, status post resection, culture growing methicillin-susceptible Staphylococcus aureus and group B streptococcus, who was discharged on clindamycin for 21 days who comes because of the ongoing right wrist pain and outpatient CAT scan showing possible septic arthritis and osteomyelitis. 1. Possible septic arthritis and osteomyelitis of the right radial wrist. CAT scan done as an outpatient showed large radiocarpal and distal radial ulnar joint effusions with bone erosions involving the distal radius and possible scaphoid.Findings highly suggestive of septic arthritis and osteomyelitis particularly in the patient with a known history of I.V. drug abuse though the patient denies any I.V. drugs after discharge from the hospital. We will admit the patient to the hospital. Emergency Room started him on I.V. daptomycin and Zosyn, which we will continue. Follow the cultures. Consulted and notified Orthopedics. We will keep n.p.o. after midnight and also consult Infectious Disease and monitor the response. Currently hemodynamically stable. We will follow the laboratories. 2. History of hepatitis C, status post treatment. 3. History of I.V. drug abuse, currently on Subutex. 4. Deep venous thrombosis prophylaxis, sequential compression devices for now. 5. Disposition: Admit to medical floor. Expect discharge home and follow with family doctor. Level 1 full code. MTDD
[2019-08-12] MEDS ORDERED: ETHYL CHLORIDE AER SPR 100 ML CAN EXT ONE (00:30)
[2019-08-12] MEDS ORDERED: buprenorphine HCL 8 MG SUBL SL STA (00:53)
[2019-08-12] MEDS: PIPERACILLIN/TAZOBACTAM 4.5 GM in DEXTROSE 5% 100 ML IV SCH ×3 (03:57→19:56)
--- NOTE | 2019-08-12 07:33 | XRay Report ---
XR wrist RT min 3V routine CLINICAL HISTORY: 33 years-old Male presenting with right wrist pain. TECHNIQUE: Frontal, bilateral oblique, and lateral views of the right wrist were obtained. COMPARISON: None. FINDINGS: No acute fracture or malalignment. No advanced degenerative change. Soft tissue swelling at the level of the carpus. IMPRESSION: No acute osseous injury. Electronically signed by: Kee Rosa M.D. 08/12/2019 7:32 AM
[2019-08-12 08:27] LABS: Basophils # (auto) 0.03 K/uL (0-0.2); Basophils % (auto) 0.6 %; Eosinophils # (auto) 0.22 K/uL (0-0.5); Eosinophils % (auto) 4.7 %; Hematocrit (blood only) 29.7 % (42-52); Hemoglobin 9.5 g/dL (14.0-18.0); Immature Granulocytes # (auto) 0.01 K/uL (0.00-0.02); Immature Granulocytes % (auto) 0.2 %; Lymphocytes # (auto) 1.93 K/uL (1.2-3.4); Lymphocytes % (auto) 41.1 %; Mean Corpuscular Hemoglobin 27.8 pg (25-34); Mean Corpuscular Volume 86.8 fL (80-100); Mean Platelet Volume 7.8 fL (7.4-10.4); Monocytes # (auto) 0.41 K/uL (0.11-0.59); Monocytes % (auto) 8.7 %; Neutrophils % (auto) 44.7 %; Platelet Count 481 K/uL (130-400); RDW Coefficient of Variation 14.5 % (11.5-14.5); RDW Standard Deviation 45.7 fL (36.4-46.3); Red Blood Count 3.42 M/uL (4.7-6.1)
[2019-08-12 08:37] LABS: INR 1.2 (0.9-1.1); Prothrombin Time 12.3 Seconds (9.0-12.0)
[2019-08-12] MEDS: buprenorphine HCL 8 MG SUBL SL SCH ×3 (08:50→21:25)
[2019-08-12 08:59] LABS: BUN Creatinine Ratio 16.6 (10-20); Calcium 9.2 mg/dl (8.5-10.1); Creatinine Clr Calc Pharmacy 96.9 ml/min; Est GFR (African American) 122.1; Est GFR (Non-African American) 105.4; Magnesium 2.2 mg/dl (1.8-2.4); Potassium 3.7 mmol/L (3.5-5.1)
--- NOTE | 2019-08-12 09:48 | Orthopedic Consultation ---
Date of Consultation August 12, 2019 Assessment & Plan (1) Septic arthritis of right wrist: (2) Osteomyelitis: Acute on chronic right wrist pain, differential includes chronic osteo-, chronic septic arthritis I have indicated the patient for arthrocentesis of right wrist, the risk benefi ts and complications alternatives of the procedure were explained to the patient in detail which include infection, blood clots, injury to nerves, bone, vessels, soft tissue, chronic pain, arthrofibrosis, need for repeat procedure, need for surgery, loss of limb loss of life. Alternatives include no aspiration which could result in worsening clinical symptoms. Patient was to proceed with arthrocentesis of the right wrist joint and verbal consent was obtained at this time. The nurse was present at bedside. The patient's right wrist was prepped with a combination of Betadine and alcohol. Utilizing sterile techniques, 22gauge needle and 10cc syringe, dorsal arthrocentesis was performed, ulnar to the EPL at the joint line. Unable to obtain any synovial fluid. 4x4's and savage wrap were applied to the wrist. The patient tolerated the procedure well. Post arthrocentesis physical exam, right upper extremity was neurovascular sensory intact, cap refill less than 2 secs, SILT grossly. Case discussed with hand specialist, Dr. Sweet. We will monitor on IV antibiotics and obtain MRI at this time rule out osteo-and septic arthritis and follow-up those results once available. Trend inflammatory labs, continue with IV antibiotics. Continue with ice and elevation of right wrist. We will follow with you. Thank you for the consultation. History of Present Illness Reason for Consultation: Right wrist pain Attending Physician: Asael Dominguez MD History of Present Illness The patient is a 33-year-old male with significant past medical history for IVDA, admitted 1 week prior for infected pseudoaneurysm of left brachial artery which was treated by vascular surgery. He was discharged on oral clindamycin. Patient reports that he has had increased pain and swelling x1 week in his right wrist after IV was placed in his right wrist/hand. He does report improved swelling over the last week but persistent pain. The patient reports a history of right wrist pain and swelling 1 year previously however did not seek treatment at that time. The patient has unchanged swelling x1 year however increasing pain over the last week which prompted him to be evaluated further by his PCP who subsequently sent him to the emergency department. A CT scan performed as an outpatient demonstrated findings concerning for osteomyelitis of the distal radius and scaphoid. The patient denies any numbness and tingling to right upper extremity. Denies any recent IVDA since his last admission. Denies any trauma to the right wrist. Allergies Allergy/AdvReac Type Severity Reaction Status Date / Time ketorolac [From Toradol] Allergy Severe Anaphylaxis Verified 08/11/19 21:39 tramadol Allergy Intermediate Throat Verified 08/11/19 21:39 tightness,nausea,vomiting and diarrhea Sulfa (Sulfonamide Allergy Unknown Unknown Verified 08/11/19 21:39 Antibiotics) Home Medications Home Medications Medication Instructions Recorded Confirmed Type buprenorphine HCl 8 mg SUBLINGUAL TID 07/29/19 08/11/19 History clindamycin HCl 300 mg PO Q8H 08/11/19 08/11/19 History naproxen sodium 550 mg PO Q8H PRN 08/11/19 08/11/19 History ondansetron HCl [Zofran] 4 mg PO BID PRN 08/11/19 08/11/19 History Patient History Medical History Hepatitis C Heroin use disorder, mild, on maintenance therapy, abuse History of pseudoaneurysm L brachial MRSA infection Surgical History [place] teeth extracted Family History Other No pertinent family history in first degree relatives Social History Preferred Language: Austrian Communication Ability: Effective 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 Beliefs That Will Affect Care: None marital status: Single Current Living Situation: Parent Current Living Situation Comment: mother Other Information That Helps Us Care for You: No Feels Safe at Home: Yes Safety Concerns: Feels Safe At This Time Smoking Status: Former smoker Second Hand Exposure: No ; Tobacco Cessation Education Requested by Patient: No Hx Alcohol Use: No Hx Substance Use: No Review of Systems Review of Systems: All systems reviewed & are unremarkable except as noted in HPI & below Constitutional: as per Subjective / HPI Physical Exam Physical Exam: Right upper extremity was neurovascular and sensory intact +2 radial pulse, compartment soft nontender, decreased flexion-extension at the wrist joint, there is chronic inflammatory changes and edema however no erythema or significant effusion. Constitutional: WD/WN, vitals as above Results & Data Vital Signs (Past 12 Hours) Vital Signs Temp Pulse Pulse Resp BP BP Pulse Ox 08/12/19 07:48 36.6 C 51 L 18 131/65 95 08/12/19 00:00 37.1 C 59 L 18 180/94 H 100 08/11/19 23:24 82 18 128/74 98 08/11/19 22:45 82 20 130/77 99 Diagnostic Findings XR wrist RT min 3V routine CLINICAL HISTORY: 33 years-old Male presenting with right wrist pain. TECHNIQUE: Frontal, bilateral oblique, and lateral views of the right wrist were obtained. COMPARISON: None. FINDINGS: No acute fracture or malalignment. No advanced degenerative change. Soft tissue swelling at the level of the carpus. IMPRESSION: No acute osseous injury. (1) Septic arthritis of right wrist Septic arthritis organism: due to unspecified organism Qualified Code(s): M00.9 - Pyogenic arthritis, unspecified (2) Osteomyelitis Osteomyelitis location: other site Osteomyelitis type: unspecified type Qualified Code(s): M86.9 - Osteomyelitis, unspecified
[2019-08-12] MEDS: ACETAMINOPHEN 325 MG TAB PO PRN (11:30)
--- NOTE | 2019-08-12 11:43 | Magnetic Resonance Report ---
MR wrist RT wo con CLINICAL HISTORY: 33 years-old Male presenting with right wrist pain, concern for infection or septic arthritis. TECHNIQUE: Multisequence, multiplanar MR imaging of the right wrist was performed without the use of intravenous contrast. IV contrast: None. COMPARISON: Plain radiographs from this morning. FINDINGS: Localizer images: Unremarkable. Bone marrow: There is along the radial aspect of the distal scaphoid. Erosions of the ulnar aspect of the triquetrum. Mild T1 hypointensity of the lunate and scaphoid diffusely. Patchy mild T1 hypointen sity of the second carpal row. T2 hyperintense bone marrow signal changes greatest in the region of e rosions. Multifocal erosions at the articular surface of the distal radius with significant T1 hypoin tensity of the distal radial metaphysis primarily at the ulnar aspect. Articular cartilage: Diffuse articular cartilage thinning at the radiocarpal articulations as well as intercarpal articulations with the scaphoid. Triangular fibrocartilage complex (volar to dorsal components): Volar radioulnar ligament intact. Uln otriquetral and ulnolunate ligaments intact. Large tear of the articular disc in the central portion and at the radial attachment. Abnormal soft tissue within the joint space interposed between the meni scal homolog and triquetrum. Abnormally increased signal intensity of the meniscal homolog. This is s uggestive of synovitis or joint debris. Dorsal radioulnar ligament intact. Extensor carpi ulnaris ten don intact. Extrinsic ligaments: Volar radioscaphocapitate and radiolunate ligaments intact. Dorsal radiotriquetr al and intercarpal ligaments intact. Intrinsic ligaments: Scapholunate and lunotriquetral ligaments intact. No widening of the scapholunat e articulation. Thumb ligaments: Superficial and deep anterior oblique ligaments of the first carpometacarpal joint i ntact. Dorsal radial ligament of the first carpal metacarpal joint intact. Flexor tendons: Normal appearance of the carpal tunnel. Flexor tendons intact. Normal signal intensit y of the median nerve. Normal signal intensity of the ulnar nerve. Extensor tendons: Extensor tendons intact. Joint spaces: Abnormal increased joint fluid most significantly along the proximal row and in the dis elysia radial ulnar joint. There is significant synovitis that is most pronounced at the distal radial u lnar joint and along the radioscaphoid and ulnar styloid regions. Superficial soft tissue: Mild superficial edema most pronounced dorsally. IMPRESSION: 1. Abnormal T1 hypointense bone marrow signal diffusely affecting the distal radial metaphysis at th e articular surface and along the ulnar aspect as well as along the radial aspect of the scaphoid and ulnar aspect of the triquetrum. Significant synovitis most pronounced at the distal radial ulnar matthew nt but also along both the radial and ulnar aspects of the proximal carpal row. Osseous erosions are also evident. Findings highly suspicious for osteomyelitis/septic arthritis. Orthopedic consultation is necessary. 2. Articular cartilage thinning in the proximal carpal row also related to underlying septic arthrit is. 3. Large triangular fibrocartilage articular disc tear. The report will be called/faxed according to standard departmental protocol for a critical finding. Electronically signed by: Kee Rosa M.D. 08/12/2019 11:41 AM
--- NOTE | 2019-08-12 19:29 | Hospitalist Progress Note ---
Date of Service August 12, 2019 Assessment & Plan (1) Septic arthritis of right wrist: MRI consistent with septic arthritis + osteomyelitis. Orthopedics consulted. Blood cultures negative so far. Continue IV daptomycin and piperacillin / tazobactam. Check echo to assess for endocarditis. Consult ID. (2) Osteomyelitis: As noted above. (3) History of pseudoaneurysm: S/P resection. Consult Vascular Surgery for follow-up assessment. (4) DVT prophylaxis: SCD's ordered. Ambulate. (5) Discharge planning issues: Anticipated discharge to home. May need outpatient antibiotic therapy. Family Medicine follow-up with Dr. Baum. Subjective Recheck for right wrist pain. Patient seen in their room around 1140. Admitted last night with right wrist pain. No fever or chills. Recently hospitalized with infected pseudoaneurysm of left brachial artery. Wound cultures at that time grew MSSA and Group F beta Strep. Discharged on clindamycin. Remote history of osteomyelitis of spine with MRSA. Review of Systems: Constitutional- no fever. Cardiac- no chest pain. Pulmonary- no cough or SOB. GI- no nausea, vomiting, diarrhea, melena, hematochezia. - no urinary symptoms. Otherwise, as noted above. Physical Exam Constitutional: no acute distress Respiratory: no respiratory distress Auscultation: lungs clear to auscultation bilaterally Cardiovascular: Rate/Rhythm: regular rate and regular rhythm Heart Sounds: no gallop, no murmur and no cardiac rub Vessels: no JVD Extremities: no calf tenderness and no edema Gastrointestinal (Abdomen): normal bowel sounds, soft, nontender, no hepatosplenomegaly Musculoskeletal: left arm bandaged swelling and tenderness right wrist Skin: few pustular lesions dorsum left hand Psychiatric: Orientation: alert and oriented x 3 Results & Data Vital Signs (Past 12 Hours) Vital Signs Temp Pulse Pulse Resp BP Pulse Ox 08/12/19 15:21 36.8 C 80 18 126/60 97 08/12/19 07:48 36.6 C 51 L 18 131/65 95 Laboratory Results Laboratory Results - last 24 hr 08/11/19 08/11/19 08/11/19 22:31 22:31 22:31 WBC 7.17 RBC 3.56 L Hgb 10.0 L Hct 30.9 L MCV 86.8 MCH 28.1 MCHC 32.4 RDW Std Deviation 45.2 RDW Coeff of David 14.4 Plt Count 611 H MPV 8.1 Immature Gran % (Auto) 0.1 Neut % (Auto) 54.1 Lymph % (Auto) 31.9 Logan % (Auto) 9.9 Eos % (Auto) 3.6 Baso % (Auto) 0.4 Immature Gran # (Auto) 0.01 Neut # (Auto) 3.87 Lymph # (Auto) 2.29 Logan # (Auto) 0.71 H Eos # (Auto) 0.26 Baso # (Auto) 0.03 ESR PT INR Sodium 137 Potassium 4.2 Chloride 98 Carbon Dioxide 33 H Anion Gap 5.0 BUN 17 Creatinine 0.99 Est Cr Clr Drug Dosing 68.4 Est GFR ( Amer) 114.7 Est GFR (Non-Af Amer) 99.0 BUN/Creatinine Ratio 17.3 Glucose 95 Lactate 1.1 Calcium 9.4 Magnesium Total Bilirubin 0.2 AST 14 L ALT 12 Alkaline Phosphatase 80 C-Reactive Protein Total Protein 8.8 H Albumin 3.3 L Globulin 5.5 H Albumin/Globulin Ratio 0.6 L 08/12/19 08/12/19 08/12/19 08:14 08:14 08:14 WBC 4.70 L RBC 3.42 L Hgb 9.5 L Hct 29.7 L MCV 86.8 MCH 27.8 MCHC 32.0 RDW Std Deviation 45.7 RDW Coeff of David 14.5 Plt Count 481 H MPV 7.8 Immature Gran % (Auto) 0.2 Neut % (Auto) 44.7 Lymph % (Auto) 41.1 Logan % (Auto) 8.7 Eos % (Auto) 4.7 Baso % (Auto) 0.6 Immature Gran # (Auto) 0.01 Neut # (Auto) 2.10 Lymph # (Auto) 1.93 Logan # (Auto) 0.41 Eos # (Auto) 0.22 Baso # (Auto) 0.03 ESR > 90 H PT INR Sodium 137 Potassium 3.7 Chloride 100 Carbon Dioxide 33 H Anion Gap 4.0 BUN 16 Creatinine 0.94 Est Cr Clr Drug Dosing 96.9 Est GFR ( Amer) 122.1 Est GFR (Non-Af Amer) 105.4 BUN/Creatinine Ratio 16.6 Glucose 105 H Lactate Calcium 9.2 Magnesium 2.2 Total Bilirubin AST ALT Alkaline Phosphatase C-Reactive Protein Total Protein Albumin Globulin Albumin/Globulin Ratio 08/12/19 08/12/19 08:14 08:14 WBC RBC Hgb Hct MCV MCH MCHC RDW Std Deviation RDW Coeff of David Plt Count MPV Immature Gran % (Auto) Neut % (Auto) Lymph % (Auto) Logan % (Auto) Eos % (Auto) Baso % (Auto) Immature Gran # (Auto) Neut # (Auto) Lymph # (Auto) Logan # (Auto) Eos # (Auto) Baso # (Auto) ESR PT 12.3 H INR 1.2 H Sodium Potassium Chloride Carbon Dioxide Anion Gap BUN Creatinine Est Cr Clr Drug Dosing Est GFR ( Amer) Est GFR (Non-Af Amer) BUN/Creatinine Ratio Glucose Lactate Calcium Magnesium Total Bilirubin AST ALT Alkaline Phosphatase C-Reactive Protein 2.91 H Total Protein Albumin Globulin Albumin/Globulin Ratio (1) Septic arthritis of right wrist Septic arthritis organism: due to unspecified organism Qualified Code(s): M00.9 - Pyogenic arthritis, unspecified (2) Osteomyelitis Osteomyelitis location: other site Osteomyelitis type: unspecified type Qualified Code(s): M86.9 - Osteomyelitis, unspecified
[2019-08-12] MEDS: DAPTOmycin 375 MG in SYRINGE 0 ML IV SCH (21:25)
[2019-08-13] MEDS: PIPERACILLIN/TAZOBACTAM 4.5 GM in DEXTROSE 5% 100 ML IV SCH ×3 (03:49→19:52)
[2019-08-13] MEDS: buprenorphine HCL 8 MG SUBL SL SCH ×3 (08:24→20:46)
--- NOTE | 2019-08-13 09:32 | Orthopedic Progress Note ---
Date of Service August 13, 2019 Assessment & Plan (1) Septic arthritis of right wrist: Right wrist Septic Arthritis and Osteo MRI confirmed diagnosis Monitoring on Dapto and Piperacillin/ Tazobactam Pain control Will await recommendations from our UE / wrist specialist Subjective Acute on chronic right wrist septic arthritis Patient states he is "sore" MRI confirmed septic arthritis and osteomyelitis On Dapto and Piperacillin/ Tazobactam Physical Exam Physical Exam: Right wrist/ hand with interrupted red blotches. FROM fingers/ thumb. Wrist with decreased motion and pain actively. N/V+. Patient A&Ox3. Afebrile. Results & Data Vital Signs (Past 12 Hours) Vital Signs Temp Pulse Pulse Resp BP Pulse Ox 08/13/19 08:02 36.9 C 77 16 112/67 97 08/12/19 23:29 37.2 C 76 16 141/54 H 98 (1) Septic arthritis of right wrist Septic arthritis organism: due to unspecified organism Qualified Code(s): M00.9 - Pyogenic arthritis, unspecified
--- NOTE | 2019-08-13 09:59 | Consultation ---
Date of Consultation August 13, 2019 Assessment & Plan (1) Pseudoaneurysm of brachial artery: LUE site of pseudoaneurysm repair is healing well with mild serous drainage. Abx per ID. Recommend continue current dressings and will reeval prior to d/c for possible suture removal. History of Present Illness Reason for Consultation: wound cehck Attending Physician: Asael Dominguez MD History of Present Illness 33 yo m with hx of IVDA and s/p L arm ligation of pseudoaneurysm by Dr Wayne 2 weeks ago, seen in f/u today. Pt admits some pain, but states significantly improved. Now having pain in L wrist which has worsened since last admission and admitted with cellulitis of R wrist. Denies weakness, numbness of L hand. States edema improved of LUE. Unable to fully extend, but has more ROM than previously. Allergies Allergy/AdvReac Type Severity Reaction Status Date / Time ketorolac [From Toradol] Allergy Severe Anaphylaxis Verified 08/11/19 21:39 tramadol Allergy Intermediate Throat Verified 08/11/19 21:39 tightness,nausea,vomiting and diarrhea Sulfa (Sulfonamide Allergy Unknown Unknown Verified 08/11/19 21:39 Antibiotics) Home Medications Home Medications Medication Instructions Recorded Confirmed Type buprenorphine HCl 8 mg SUBLINGUAL TID 07/29/19 08/11/19 History clindamycin HCl 300 mg PO Q8H 08/11/19 08/11/19 History naproxen sodium 550 mg PO Q8H PRN 08/11/19 08/11/19 History ondansetron HCl [Zofran] 4 mg PO BID PRN 08/11/19 08/11/19 History Patient History Medical History Hepatitis C Heroin use disorder, mild, on maintenance therapy, abuse History of pseudoaneurysm L brachial MRSA infection Surgical History [place] teeth extracted Family History Other No pertinent family history in first degree relatives Social History Preferred Language: Pashto Communication Ability: Effective 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 Beliefs That Will Affect Care: None marital status: Single Current Living Situation: Parent Current Living Situation Comment: mother Other Information That Helps Us Care for You: No Feels Safe at Home: Yes Safety Concerns: Feels Safe At This Time Smoking Status: Former smoker Second Hand Exposure: No ; Tobacco Cessation Education Requested by Patient: No Hx Alcohol Use: No Hx Substance Use: No Review of Systems Review of Systems: All systems reviewed & are unremarkable except as noted in HPI & below Physical Exam Constitutional: WD/WN, vitals as above Respiratory: normal respiratory effort, lungs clear to auscultation Cardiovascular: Rate/Rhythm: regular rate and regular rhythm Vessels: posterior tibial pulses present, dorsalis pedis pulses present, radial pulses present (with doppler) and ulnar pulses present (with doppler); + abnormal peripheral pulses Extremities: normal capillary refill Gastrointestinal (Abdomen): normal bowel sounds, soft, nontender, no hepatosplenomegaly Musculoskeletal: no cyanosis or clubbing, extremities motor strength 5/5 Extremities: + limited ROM of extremities (L elbow) Skin: + incision (L arm healing well, narrow open area to central. sutures noted.) Neurologic: moves all extremities; no focal motor deficits and not confused Psychiatric: A+Ox3, euthymic affect Results & Data Vital Signs (Past 12 Hours) Vital Signs Temp Pulse Pulse Resp BP Pulse Ox 08/13/19 08:02 36.9 C 77 16 112/67 97 08/12/19 23:29 37.2 C 76 16 141/54 H 98
--- NOTE | 2019-08-13 11:36 | Infectious Disease Consult ---
Date of Consultation August 13, 2019 Assessment & Plan (1) Septic arthritis of right wrist: continue abx, await ortho eval. vascular surgery following for recent lue abscess due to IVDA. will likely need prolonged abx but not a candidate for picc line and outpatient IV abx due to active IVDA. will check esr as well. History of Present Illness Attending Physician: Asael Dominguez MD pt admitted wtih pain in right wrist. MRI showing suspected osteo. Pt has h/o active IVDA, was recently admitted with pseudoaneurysm of left arm, underwent I&D, cultures grew MSSA and GFS, he was d/c on clinda with plans to follow with both surgery and ID this week in office. He was started on dapto and zosyn and is tolerating well. ortho following, pt states attempted aspiration yesterday but no fluid obtained, states he will likely need OR, ate breakfast this morning. dressing intact on left arm, he states this is significantly improved. vascular surgery to eval. wbc 4, creat 0.9, crp 2.9. no esr. no n/v/d/abd pain, eating well. tolerated clinda well. no f/c. has pain and decreased rom in right wrist. sensation intact. Allergies Allergy/AdvReac Type Severity Reaction Status Date / Time ketorolac [From Toradol] Allergy Severe Anaphylaxis Verified 08/11/19 21:39 tramadol Allergy Intermediate Throat Verified 08/11/19 21:39 tightness,nausea,vomiting and diarrhea Sulfa (Sulfonamide Allergy Unknown Unknown Verified 08/11/19 21:39 Antibiotics) Home Medications Home Medications Medication Instructions Recorded Confirmed Type buprenorphine HCl 8 mg SUBLINGUAL TID 07/29/19 08/11/19 History clindamycin HCl 300 mg PO Q8H 08/11/19 08/11/19 History naproxen sodium 550 mg PO Q8H PRN 08/11/19 08/11/19 History ondansetron HCl [Zofran] 4 mg PO BID PRN 08/11/19 08/11/19 History Patient History Medical History Hepatitis C Heroin use disorder, mild, on maintenance therapy, abuse History of pseudoaneurysm L brachial MRSA infection Surgical History [place] teeth extracted Family History Other No pertinent family history in first degree relatives Social History Preferred Language: Syrian Communication Ability: Effective Success Coach Required: No Beliefs That Will Affect Care: None marital status: Single Current Living Situation: Parent Current Living Situation Comment: mother Other Information That Helps Us Care for You: No Feels Safe at Home: Yes Safety Concerns: Feels Safe At This Time Smoking Status: Former smoker Second Hand Exposure: No ; Tobacco Cessation Education Requested by Patient: No Hx Alcohol Use: No Hx Substance Use: No Review of Systems Review of Systems: All systems reviewed & are unremarkable except as noted in HPI & below Physical Exam Constitutional: WD/WN, vitals as above Eyes: PERRL, conjunctivae normal, anicteric sclerae ENMT: external ear and nose normal, oropharynx normal Neck: normal visual inspection Respiratory: normal respiratory effort, lungs clear to auscultation Cardiovascular: RRR, no murmur, no edema Gastrointestinal (Abdomen): normal bowel sounds, soft, nontender, no hepatosplenomegaly Musculoskeletal: no cyanosis or clubbing, extremities motor strength 5/5 Skin: no rashes, warm and dry right wrist no warmth, min tenderness, min edema, sensation intact, moving all digits. lue dressing c/d/i Psychiatric: A+Ox3, euthymic affect Results & Data Vital Signs (Past 12 Hours) Vital Signs Temp Pulse Resp BP Pulse Ox 08/13/19 08:02 36.9 C 77 16 112/67 97 PG Care Time/CCT Total # of Minutes Spent Total Time Spent with Patient: Total time spent is greater than 50% in coordination of care (as documented) at patient's floor/unit and/or counseling patient: (1) Septic arthritis of right wrist Septic arthritis organism: due to unspecified organism Qualified Code(s): M00.9 - Pyogenic arthritis, unspecified
[2019-08-13] MEDS: ACETAMINOPHEN 325 MG TAB PO PRN (15:50)
--- NOTE | 2019-08-13 18:30 | Orthopedic Consultation ---
Date of Consultation August 13, 2019 Assessment & Plan (1) Chronic osteomyelitis of wrist: He clearly has chronic osteomyelitis in multiple bones in his right wrist. He may have had an acute flare of his pain more recently, but his exam is surprisingly benign with minimal erythema, induration, and swelling; this is clearly a chronic condition that seems to have been going on for over a year. I advised him with the severe erosions of his articular cartilage and severe osseous erosions of the bones, I will never be able to give him a normal wrist. Our most immediate goal would be to clear his infection. I will plan to take him to the operating room on to washout what I can from his wrist and obtain tissue and bone specimens for culture. This will hopefully help tailor his antibiotics better. This may be just localized spread of infection from his previous IV drug injections around the area of his radial artery, but given his multiple infections in the left elbow, spine, and right wrist, I think it may be prudent to check an echo to look for endocarditis. I stressed to him that after we clear the infection, he will still have pain and stiffness in the wrist from secondary arthritis. This may eventually require fusion of his wrist. Risks, benefits, and alternatives of surgery were explained in detail. The surgical procedure, as well as postoperative recovery and rehabilitation, was also explained in detail. Risks include bleeding; persistent infection; damage to surrounding structures such as nerves, blood vessels, and tendons that run in the area; persistent pain, weakness, or stiffness; or need for further surgery. He understands all of this and wishes to proceed with surgery. Informed consent was obtained. NPO after midnight Tuesday. Present on Admission?: Yes History of Present Illness Reason for Consultation: Right wrist infection Attending Physician: Asael Dominguez MD History of Present Illness Hand Surgery Consultation I was asked to see Mr. Calvillo by my partners for subspecialty evaluation of his right wrist. He is a 33-year-old male with a longstanding history of IV drug use and multiple infections who has had pain in his right wrist for over a year. He used to inject IV drugs into the volarradial aspect of his right wrist where he could find a vein. About a year ago, he had an episode of significant pain, swelling, and stiffness in the right wrist. This improved after a few weeks, but he had some chronic pain in the wrist. He then had a flareup a few weeks ago of this wrist pain. He feels like it was related to what sounds like an arterial puncture while he was being treated for a left antecubital fossa infected pseudoaneurysm. He currently describes severe pain in the right wrist with any activities. My partner attempted to aspirate his wrist a few days ago, and was unable to obtain any fluid from the wrist joint. He does have a history of multiple infections. Again, he was recently treated for a left antecubital fossa infected pseudoaneurysm with MSSA and group F beta-hemolytic Streptococcus. He also says that he had an episode of osteomyelitis in his spine about 10 years ago when he was in [place]. This was treated with IV antibiotics only and no surgical intervention. Allergies Allergy/AdvReac Type Severity Reaction Status Date / Time ketorolac [From Toradol] Allergy Severe Anaphylaxis Verified 08/11/19 21:39 tramadol Allergy Intermediate Throat Verified 08/11/19 21:39 tightness,nausea,vomiting and diarrhea Sulfa (Sulfonamide Allergy Unknown Unknown Verified 08/11/19 21:39 Antibiotics) Home Medications Home Medications Medication Instructions Recorded Confirmed Type buprenorphine HCl 8 mg SUBLINGUAL TID 07/29/19 08/11/19 History clindamycin HCl 300 mg PO Q8H 08/11/19 08/11/19 History naproxen sodium 550 mg PO Q8H PRN 08/11/19 08/11/19 History ondansetron HCl [Zofran] 4 mg PO BID PRN 08/11/19 08/11/19 History Patient History Medical History Hepatitis C Heroin use disorder, mild, on maintenance therapy, abuse History of pseudoaneurysm L brachial MRSA infection Surgical History [place] teeth extracted Family History Other No pertinent family history in first degree relatives Social History Preferred Language: Ghanaian Communication Ability: Effective Tube Coremaker Required: No Beliefs That Will Affect Care: None marital status: Single Current Living Situation: Parent Current Living Situation Comment: mother Other Information That Helps Us Care for You: No Feels Safe at Home: Yes Safety Concerns: Feels Safe At This Time Smoking Status: Former smoker Second Hand Exposure: No ; Tobacco Cessation Education Requested by Patient: No Hx Alcohol Use: No Hx Substance Use: No Physical Exam Physical Exam: General: The patient appears well developed but malnourished. Awake, alert, and oriented x 3. Appropriate mood and affect. Normal gait and station. Normal coordination and balance. Skin: The skin over the right wrist shows mottling of the skin around the wrist and hand, but no erythema. Inspection/Palpation: Visual inspection mild diffuse swelling around the wrist. No obvious palpable fluid collection or fluctuance. No induration. Minimal warmth. Very mild tenderness to palpation around the wrist joint. Range of Motion: There is severe limitation in his wrist range of motion. He can only achieve about 30 degrees of wrist extension and 30 degrees of wrist flexion. Minimal ulnar and radial deviation. He has minimal pain on range of motion with 10 days measurements. Stability: There is no gross ligamentous laxity. Strength: There is full strength of the hand and wrist. Sensation: The patient reports no numbness in the hand. Vascular: Hand is warm and well perfused. No diffuse edema. Results & Data Vital Signs (Past 12 Hours) Vital Signs Temp Pulse Pulse Resp BP Pulse Ox 08/13/19 15:06 36.8 C 63 18 147/64 H 97 08/13/19 08:02 36.9 C 77 16 112/67 97 Laboratory Results WBC 4.70 ESR >90 CRP 2.91 Diagnostic Findings MRI of the right wrist was reviewed. It shows extensive diffuse osseous erosi ons and most of the bones throughout his wrist joint. The most severely involved appear to be the distal radius and scaphoid, with multiple osseous erosions of both. He has near complete loss of the articular cartilage within the radiocarpal joint associated with these erosions. Also noted are erosions in the lunate, triquetrum, and capitate.
--- NOTE | 2019-08-13 20:10 | Hospitalist Progress Note ---
Date of Service August 13, 2019 Assessment & Plan (1) Septic arthritis of right wrist: MRI consistent with septic arthritis + osteomyelitis. Orthopedics consulted. Blood cultures negative so far. Continue IV daptomycin and piperacillin / tazobactam. Check echo to assess for endocarditis. ID consulted. (2) Osteomyelitis: As noted above. (3) History of pseudoaneurysm: S/P resection. Vascular Surgery consulted to follow. (4) DVT prophylaxis: SCD's ordered. Ambulate. (5) Discharge planning issues: Anticipated discharge to home. May need outpatient antibiotic therapy. Family Medicine follow-up with Dr. Baum. Subjective Recheck for right wrist pain. Patient seen in their room around 1000. Persistent pain right wrist. Subjective fever. + sweats. Seen by Vascular Surgery this morning for recheck of LUE incision. Review of Systems: Constitutional- no fever. Cardiac- no chest pain. Pulmonary- no cough or SOB. GI- no nausea, vomiting, diarrhea, melena, hematochezia. - no urinary symptoms. Otherwise, as noted above. Physical Exam Constitutional: no acute distress Eyes: + anicteric sclerae Respiratory: no respiratory distress Auscultation: lungs clear to auscultation bilaterally Cardiovascular: Rate/Rhythm: regular rate and regular rhythm Heart Sounds: no gallop, no murmur and no cardiac rub Vessels: no JVD Extremities: no calf tenderness and no edema Gastrointestinal (Abdomen): normal bowel sounds, soft, nontender, no hepatosplenomegaly Musculoskeletal: Extremities: + extremities abnormal to inspection (swelling right wrist; left arm bandaged) Skin: + rash (pustular lesions dorsum left hand) Psychiatric: Orientation: alert and oriented x 3 Results & Data Vital Signs (Past 12 Hours) Vital Signs Temp Pulse Resp BP Pulse Ox 08/13/19 15:06 36.8 C 63 18 147/64 H 97 Laboratory Results Laboratory Results - last 24 hr 08/13/19 11:55 ESR > 90 H Microbiology 08/11/19 22:31 Blood Aerobic Blood Culture - Preliminary No growth in Aerobic bottle after 24 hours. 08/11/19 22:31 Blood Anaerobic Blood Culture - Preliminary No growth in Anaerobic bottle after 24 hours. 08/11/19 22:33 Blood Aerobic Blood Culture - Preliminary No growth in Aerobic bottle after 24 hours. 08/11/19 22:33 Blood Anaerobic Blood Culture - Preliminary No growth in Anaerobic bottle after 24 hours. (1) Septic arthritis of right wrist Septic arthritis organism: due to unspecified organism Qualified Code(s): M00.9 - Pyogenic arthritis, unspecified (2) Osteomyelitis Osteomyelitis location: other site Osteomyelitis type: unspecified type Qualified Code(s): M86.9 - Osteomyelitis, unspecified
[2019-08-13] MEDS: DAPTOmycin 375 MG in SYRINGE 0 ML IV SCH (21:55)
[2019-08-14] MEDS: PIPERACILLIN/TAZOBACTAM 4.5 GM in DEXTROSE 5% 100 ML IV SCH ×3 (04:00→20:32)
[2019-08-14] MEDS: ACETAMINOPHEN 325 MG TAB PO PRN ×2 (04:07→08:15)
[2019-08-14] MEDS: buprenorphine HCL 8 MG SUBL SL SCH ×3 (09:05→20:32)
[2019-08-14 09:48] LABS: Hematocrit (blood only) 32.1 % (42-52); Hemoglobin 9.9 g/dL (14.0-18.0); Mean Corpuscular Hgb Conc 30.8 g/dL (32-36); Mean Corpuscular Volume 87.7 fL (80-100); Mean Platelet Volume 8.3 fL (7.4-10.4); Platelet Count 509 K/uL (130-400); RDW Coefficient of Variation 14.8 % (11.5-14.5); RDW Standard Deviation 47.2 fL (36.4-46.3); Red Blood Count 3.66 M/uL (4.7-6.1); White Blood Count 6.24 K/uL (4.8-10.8)
[2019-08-14 09:49] LABS: BUN Creatinine Ratio 16.3 (10-20); Calcium 8.9 mg/dl (8.5-10.1); Creatinine Clr Calc Pharmacy 96.9 ml/min; Est GFR (African American) 122.1; Est GFR (Non-African American) 105.4; Potassium 3.8 mmol/L (3.5-5.1)
--- NOTE | 2019-08-14 13:05 | Infectious Disease Progress Nt ---
Date of Service August 14, 2019 Assessment & Plan (1) Septic arthritis of right wrist: continue abx, await OR finding, culture results. cultures may be negative due to prolonged IV abx during this hospital stay and previous course of clinda for lue mssa, gfs abscess. will follow. will likely need prolonged abx but not a candidate for picc line and outpatient IV abx due to active IVDA. echo pending as well. Subjective s/p ortho eval. for OR on , blood cultures negative, remains on Iv abx. toleraitng well. afebrile. wbc 6, ESR >90, creat 0.9, echo pending due to active IVDA Results & Data Vital Signs (Past 12 Hours) Vital Signs Temp Pulse Resp BP Pulse Ox 08/14/19 08:02 37.0 C 56 L 16 134/66 98 Laboratory Results Microbiology 08/11/19 22:31 Blood Aerobic Blood Culture - Preliminary No growth in Aerobic bottle after 48 hours. 08/11/19 22:31 Blood Anaerobic Blood Culture - Preliminary No growth in Anaerobic bottle after 48 hours. 08/11/19 22:33 Blood Aerobic Blood Culture - Preliminary No growth in Aerobic bottle after 48 hours. 08/11/19 22:33 Blood Anaerobic Blood Culture - Preliminary No growth in Anaerobic bottle after 48 hours. PG Care Time/CCT Total # of Minutes Spent Total Time Spent with Patient: Total time spent is greater than 50% in coordination of care (as documented) at patient's floor/unit and/or counseling patient: (1) Septic arthritis of right wrist Septic arthritis organism: due to unspecified organism Qualified Code(s): M00.9 - Pyogenic arthritis, unspecified
--- NOTE | 2019-08-14 19:43 | Hospitalist Progress Note ---
Date of Service August 14, 2019 Assessment & Plan (1) Septic arthritis of right wrist: MRI consistent with septic arthritis + osteomyelitis. Orthopedics and ID consulted. ESR > 90. CRP = 2.91. Blood cultures negative so far. Continue IV daptomycin and piperacillin / tazobactam. Echo did not reveal any significant valvular abnormalities. Schedule for OR for irrigation and drainage. (2) Osteomyelitis: As noted above. (3) History of pseudoaneurysm: S/P resection. Vascular Surgery consulted to follow. (4) Chronic pain: Continue buprenorphine. (5) DVT prophylaxis: SCD's ordered. Ambulate. (6) Discharge planning issues: Anticipated discharge to home. May need outpatient antibiotic therapy. Family Medicine follow-up with Dr. Baum. Pain Management follow-up with Kody Tejeda MD [phone] Subjective Recheck for septic arthritis / osteomyelitis right wrist. Patient seen in their room around 1550. Persistent pain right wrist. No fever. Review of Systems: Constitutional- no fever. Cardiac- no chest pain. Pulmonary- no cough or SOB. GI- no nausea, vomiting, diarrhea, melena, hematochezia. - no urinary symptoms. Otherwise, as noted above. Physical Exam Constitutional: no acute distress Eyes: + anicteric sclerae Respiratory: no respiratory distress Auscultation: lungs clear to auscultation bilaterally Cardiovascular: Rate/Rhythm: regular rate and regular rhythm Heart Sounds: no gallop, no murmur and no cardiac rub Vessels: no JVD Extremities: no calf tenderness and no edema Gastrointestinal (Abdomen): normal bowel sounds, soft, nontender, no hepatosplenomegaly Musculoskeletal: Extremities: + extremities abnormal to inspection (swelling and tenderness right wrist; left arm bandaged) Skin: + rash (resolving pustular lesions dorsum left hand) Psychiatric: Orientation: alert and oriented x 3 Results & Data Vital Signs (Past 12 Hours) Vital Signs Temp Pulse Resp BP Pulse Ox 08/14/19 15:17 36.7 C 73 16 115/72 97 08/14/19 08:02 37.0 C 56 L 16 134/66 98 Laboratory Results Microbiology 08/11/19 22:31 Blood Aerobic Blood Culture - Preliminary No growth in Aerobic bottle after 48 hours. 08/11/19 22:31 Blood Anaerobic Blood Culture - Preliminary No growth in Anaerobic bottle after 48 hours. 08/11/19 22:33 Blood Aerobic Blood Culture - Preliminary No growth in Aerobic bottle after 48 hours. 08/11/19 22:33 Blood Anaerobic Blood Culture - Preliminary No growth in Anaerobic bottle after 48 hours. (1) Septic arthritis of right wrist Septic arthritis organism: due to unspecified organism Qualified Code(s): M00.9 - Pyogenic arthritis, unspecified (2) Osteomyelitis Osteomyelitis location: other site Osteomyelitis type: unspecified type Qualified Code(s): M86.9 - Osteomyelitis, unspecified
[2019-08-14] MEDS: DAPTOmycin 375 MG in SYRINGE 0 ML IV SCH (21:55)
[2019-08-15] MEDS: PIPERACILLIN/TAZOBACTAM 4.5 GM in DEXTROSE 5% 100 ML IV SCH ×3 (04:20→21:02)
[2019-08-15] MEDS: buprenorphine HCL 8 MG SUBL SL SCH ×3 (08:15→21:02)
--- NOTE | 2019-08-15 09:29 | Infectious Disease Progress Nt ---
Date of Service August 15, 2019 Assessment & Plan (1) Septic arthritis of right wrist: continue abx, await OR finding, culture results. cultures may be negative due to prolonged IV abx during this hospital stay and previous course of clinda for lue mssa, gfs abscess. will follow. will likely need prolonged abx but not a candidate for picc line and outpatient IV abx due to active IVDA. echo negative. Subjective afebrile, tolerating abx, blood cultures negative negative, wbc normal. blood cultures negatative, echo negative, for OR in am. Results & Data Vital Signs (Past 12 Hours) Vital Signs Temp Pulse Pulse Resp BP Pulse Ox 08/15/19 07:43 36.9 C 59 L 16 106/65 97 08/14/19 23:57 36.7 C 62 18 105/62 97 Laboratory Results Microbiology 08/11/19 22:31 Blood Aerobic Blood Culture - Preliminary No growth in Aerobic bottle after 48 hours. 08/11/19 22:31 Blood Anaerobic Blood Culture - Preliminary No growth in Anaerobic bottle after 48 hours. 08/11/19 22:33 Blood Aerobic Blood Culture - Preliminary No growth in Aerobic bottle after 48 hours. 08/11/19 22:33 Blood Anaerobic Blood Culture - Preliminary No growth in Anaerobic bottle after 48 hours. PG Care Time/CCT Total # of Minutes Spent Total Time Spent with Patient: Total time spent is greater than 50% in coordination of care (as documented) at patient's floor/unit and/or counseling patient: (1) Septic arthritis of right wrist Septic arthritis organism: due to unspecified organism Qualified Code(s): M00.9 - Pyogenic arthritis, unspecified
--- NOTE | 2019-08-15 16:00 | Hospitalist Progress Note ---
Date of Service August 15, 2019 Assessment & Plan (1) Septic arthritis of right wrist: --MRI R Wrist:Abnormal T1 hypointense bone marrow signal diffusely affecting the distal radial metaphysis at the articular surface and along the ulnar aspect as well as along the radial aspect of the scaphoid and ulnar aspect of the triquetrum. Significant synovitis most pronounced at the distal radial ulnar joint but also along both the radial and ulnar aspects of the proximal carpal row. Osseous erosions are also evident. Findings highly suspicious for osteomyelitis/septic arthritis. Orthopedic consultation is necessary. Articular cartilage thinning in the proximal carpal row also related to underlying septic arthritis. Large triangular fibrocartilage articular disc tear. --Blood Cx: No growth to date --Blood cultures likely will be negative due to prolonged IV antibiotics (For LUE abscess) --ECHO: No significant valvular abnormalities --Continue IV daptomycin, Zosyn Day #4 --Appreciate ID, Orthopedics Input --Likely I&D tomorrow --Will need prolonged IV antibiotic course Hypertension Variable BP: ? due to pain Monitor (2) Osteomyelitis: As noted above. (3) History of pseudoaneurysm: S/P resection. Vascular Surgery consulted (4) Chronic pain: Continue buprenorphine. (5) DVT prophylaxis: SCD's ordered. Ambulate. (6) Discharge planning issues: Needs outpatient antibiotic therapy. Family Medicine follow-up with Dr. Baum. Pain Management follow-up with Kody Tejeda MD [phone] Subjective Patient is seen and examined at bedside Complains of right wrist pain Planned for I&D TMW Offers no other complaints Has been refusing blood draws Denies any chest pain, shortness of breath, dizziness, nausea, abdominal pain Review of Systems Review of Systems: All systems reviewed & are unremarkable except as noted in HPI & below Physical Exam Physical Exam: Physical Exam: Vitals signs as noted above General Appearance:Thin, no apparent distress Head: normocephalic, Atraumatic Eyes: normal inspection, EOMI Neck: supple, Trachea midline Respiratory/Chest: Normal breath sounds, CTA Cardiovascular: S1, S2, No murmur Abdomen/GI:Soft, Non tender, Bowel sounds present Extremities/Musculoskelatal:normal inspection, no edema, Left elbow in dressing, R wrist tender, mild swelling Neurologic/Psych:AAOX3, grossly no focal neurological deficits Skin: normal color, warm Results & Data Vital Signs (Past 12 Hours) Vital Signs Temp Pulse Pulse Resp BP Pulse Ox 08/15/19 15:09 36.8 C 59 L 18 178/116 H 97 08/15/19 07:43 36.9 C 59 L 16 106/65 97 (1) Septic arthritis of right wrist Septic arthritis organism: due to unspecified organism Qualified Code(s): M00.9 - Pyogenic arthritis, unspecified (2) Osteomyelitis Osteomyelitis location: other site Osteomyelitis type: unspecified type Qualified Code(s): M86.9 - Osteomyelitis, unspecified
[2019-08-15] MEDS: ACETAMINOPHEN 325 MG TAB PO PRN (16:16)
[2019-08-15] MEDS: DAPTOmycin 375 MG in SYRINGE 0 ML IV SCH (21:02)
[2019-08-16] MEDS: PIPERACILLIN/TAZOBACTAM 4.5 GM in DEXTROSE 5% 100 ML IV SCH ×3 (04:10→19:35)
[2019-08-16 06:40] LABS: Hematocrit (blood only) 29.8 % (42-52); Hemoglobin 9.4 g/dL (14.0-18.0); Mean Corpuscular Hemoglobin 28.1 pg (25-34); Mean Corpuscular Hgb Conc 31.5 g/dL (32-36); Mean Corpuscular Volume 89.2 fL (80-100); Mean Platelet Volume 7.9 fL (7.4-10.4); Platelet Count 491 K/uL (130-400); RDW Coefficient of Variation 14.8 % (11.5-14.5); RDW Standard Deviation 48.2 fL (36.4-46.3); Red Blood Count 3.34 M/uL (4.7-6.1); White Blood Count 5.82 K/uL (4.8-10.8)
[2019-08-16 07:17] LABS: BUN Creatinine Ratio 14.8 (10-20); Creatinine Clr Calc Pharmacy 109.8 ml/min; Est GFR (African American) 133.1; Est GFR (Non-African American) 114.8; Potassium 3.7 mmol/L (3.5-5.1)
[2019-08-16] MEDS: buprenorphine HCL 8 MG SUBL SL SCH ×3 (07:37→20:37)
[2019-08-16] MEDS: ACETAMINOPHEN 325 MG TAB PO PRN ×2 (07:48→17:57)
--- NOTE | 2019-08-16 10:34 | Anesthesiology Consultation ---
Date of Service August 16, 2019 Assessment & Plan (1) Encounter for pre-operative examination: Chart Review Chart Review: Acceptable Risk for Surgery and Patient NOT seen in Pre Admission Testing Consults Requested none ASA ASA3 Proposed Anesthesia Anesthesia Type: General Risk / Benefits Reviewed With: PT / POA / Parent / Guardian, Accepts Plan and Informed Consent Obtained History Surgery Operation Date: 08/16/19 10:35 Proposed Procedures p Right Wrist Incision and Drainage - Kody Michaud M.D. Height/Weight Height: 6 ft Weight: 61.9 kg Allergies Allergy/AdvReac Type Severity Reaction Status Date / Time ketorolac [From Toradol] Allergy Severe Anaphylaxis Verified 08/11/19 21:39 tramadol Allergy Intermediate Throat Verified 08/11/19 21:39 tightness,nausea,vomiting and diarrhea Sulfa (Sulfonamide Allergy Unknown Unknown Verified 08/11/19 21:39 Antibiotics) Medications Home Medications Medication Instructions Recorded Confirmed Last Taken buprenorphine HCl 8 mg SUBLINGUAL TID 07/29/19 08/11/19 08/11/19 15:00 clindamycin HCl 300 mg PO Q8H 08/11/19 08/11/19 08/11/19 15:00 naproxen sodium 550 mg PO Q8H PRN 08/11/19 08/11/19 Unknown ondansetron HCl [Zofran] 4 mg PO BID PRN 08/11/19 08/11/19 Unknown Active Medications Generic Name Dose Route Start Last Admin Trade Name Freq PRN Reason Stop Dose Admin Acetaminophen 650 mg 08/11/19 23:28 08/16/19 07:48 Tylenol PO 09/10/19 23:27 650 mg Q4H PRN Administration pain/fever Buprenorphine HCl 8 mg 08/12/19 09:00 08/16/19 07:37 Subutex SL 09/11/19 08:59 8 mg TID BIJU Administration Piperacillin Sod/Tazobactam 120 mls @ 30 mls/hr 08/12/19 04:00 08/16/19 08:24 Sod 4.5 gm/ Dextrose IV 09/23/19 03:59 Infused Q8H BIJU Infusion Protocol Daptomycin 375 mg/ Syringe 7.5 mls @ 4.75 mls/min 08/12/19 22:00 08/15/19 21:02 IV 09/23/19 21:59 4.75 mls/min Q24H BIJU Administration Protocol NPO Date Last Intake of Fluids: 08/15/19 Time Last Intake of Fluids: 23:59 Date Last Intake of Solids: 08/15/19 Time Last Intake of Solids: 21:00 Past Medical History Medical History Chronic osteomyelitis of wrist Chronic pain Encounter for pre-operative examination Hepatitis C Heroin use disorder, mild, on maintenance therapy, abuse History of pseudoaneurysm L brachial MRSA infection Exercise / Class Metabolic Activity III < 4 Walking/Shop/Light housework Past Family History Family History Other No pertinent family history in first degree relatives Past Surgical History Surgical History [place] teeth extracted Past Anesthesia History No Hx of Anesthesia Complications History of PONV No Hx of PONV Social History Smoking Status: Former smoker Hx Alcohol Use: No Hx Substance Use: No substance use type: former substance user and heroin Substance Use Type Other:: pt denied drug use when asked Review of Systems Patient denies active symptoms of GERD. Negative for chest pain or shortness of breath. Physical Exam Vital Signs Last Vital Signs Temp 36.8 C 08/16/19 10:37 Pulse 55 L 08/16/19 10:37 Resp 20 08/16/19 10:37 BP 142/68 H 08/16/19 10:37 Pulse Ox 98 08/16/19 10:37 Constitutional + cachectic ENMT Mouth: + edentulous; no TMJ abnormality and oral opening not small Thyromental Distance: > or= 3.5 Finger Breadths Mallampati Class: II Neck normal visual inspection; neck extension not limited Respiratory normal respiratory effort Auscultation: lungs clear to auscultation bilaterally Cardiovascular Rate/Rhythm: regular rate and regular rhythm Heart Sounds: no murmur Neurologic moves all extremities Psychiatric Orientation: alert and oriented x 3 Testing Laboratory Results 08/16/19 06:27 08/16/19 06:27 PT 12.3 Seconds (9.0-12.0) H 08/12/19 08:14 INR 1.2 (0.9-1.1) H 08/12/19 08:14 08/11/19 22:31 Aerobic Blood Culture - Preliminary Blood No growth in Aerobic bottle after 48 hours. Anaerobic Blood Culture - Preliminary No growth in Anaerobic bottle after 48 hours. 08/11/19 22:33 Aerobic Blood Culture - Preliminary Blood No growth in Aerobic bottle after 48 hours. Anaerobic Blood Culture - Preliminary No growth in Anaerobic bottle after 48 hours. Echocardiogram Date: 08/14/19 EF: 60-65% LV Function: normal RWMA: + none Valvular Disease: + no significant valvular disease
[2019-08-16] MEDS ORDERED: fentaNYL citrate 100 MCG/2 ML VIAL ONE ×2 (10:40→11:42)
[2019-08-16] MEDS ORDERED: MIDAZOLAM HCL 1 MG/ML 2ML VIAL ONE (10:40)
[2019-08-16] MEDS ORDERED: LIDOCAINE HCL 2% 2 ML VIAL/AMP(20MG/ML) INFIL ONE (10:40)
[2019-08-16] MEDS ORDERED: ePHEDrine sulfate 50 MG/ML AMP IV PRN (11:03)
[2019-08-16] MEDS ORDERED: ONDANSETRON INJ 2 MG/ML 2 ML VIAL IV PRN (11:03)
[2019-08-16] MEDS ORDERED: ATROPINE SULFATE 0.1 MG/ML 10ML SYR IV PRN (11:03)
--- NOTE | 2019-08-16 11:09 | History & Physical Bridge Note ---
Date of Service August 16, 2019 History & Physical Bridge Note I have examined the patient, reviewed the History & Physical and in the interval since the performance of the History & Physical I have noted the following changes of clinical significance: no changes noted
[2019-08-16] MEDS ORDERED: BUPIVACAINE 0.5 % 5 MG/1 ML MPF 30ML VIAL ONE (11:27)
[2019-08-16] MEDS ORDERED: LIDOCAINE HCL 1% 20 ML VIAL ONE (11:27)
--- NOTE | 2019-08-16 12:24 | Post Operative Brief Note ---
Immediate Post Op Note v1 Date of Surgery August 16, 2019 Pre & Post Diagnosis Operation Date: 08/16/19 10:35 Pre-Op Diagnosis: RIGHT WRIST CHRONIC OSTEOMYELITIS Post-Op Diagnosis: RIGHT WRIST CHRONIC OSTEOMYELITIS I identified the patient and participated in the time-out.: Yes Procedure Operation Date: 08/16/19 10:35 Actual Procedures Right Wrist Irrigation and Debridement - Kody Michaud M.D. Surgeon Kody Michaud Board Catcher None Estimated Blood Loss 5 Findings See Below No purulent fluid within wrist joint; no evidence of acute septic arthritis.
--- NOTE | 2019-08-16 12:26 | Operative Report ---
Post Operative Report Pre & Post Diagnosis Operation Date: 08/16/19 10:35 Pre-Op Diagnosis: RIGHT WRIST CHRONIC OSTEOMYELITIS Post-Op Diagnosis: RIGHT WRIST CHRONIC OSTEOMYELITIS I identified the patient and participated in the time-out.: Yes Procedure Operation Date: 08/16/19 10:35 Actual Procedures Right Wrist Joint Arthrotomy with Irrigation and Debridement (07446) - Kody Michaud M.D. Surgeon Kody Michaud Traffic Police Officer None Estimated Blood Loss 5 Findings See Below No purulent fluid within the wrist joint; no evidence of acute septic wrist Specimens Wrist joint synovial tissue and culture swabs sent for Gram stain and culture Drains None Anesthesia Type General Complications none Disposition Disposition: Recovery Room Indications Mr. Calvillo is a 33-year-old male with chronic right wrist pain secondary to IV drug use. He used to inject IV drugs very close to his wrist joint. He had a flareup of pain and stiffness about a year ago. He had a more recent flareup that prompted this evaluation. MRI showed evidence of chronic osteomyelitis throughout the wrist joint, but clinically he had minimal signs or symptoms of an acute septic wrist. Irrigation and debridement of the wrist joint was requested to obtain definitive bacterial diagnosis as well as washout any potential septic arthritis. Risks, benefits, and alternatives of surgery were explained in detail. The patient understood all this and wished to proceed. Description of Procedure Patient was identified in the preoperative holding area. Operative extremity was marked. Patient was then brought back to the operating room, and general anesthesia was induced without complication. Appropriate weight-based dose of A ncef was infused intravenously for antibiotic prophylaxis. Tourniquet was placed on the right forearm. Forearm was then prepped and draped in a standard sterile fashion using Chlorhexidine prep. The forearm was then exsanguinated with an Esmarch, and the tourniquet was inflated. Longitudinal incision was made directly over the dorsal aspect of the wrist joint at the 34 interval, just ulnar to Wm's tubercle. I then dissected bluntly down to the deep fascia, which was then also incised longitudinally. The extensor pollicis longus tendon and the third dorsal extensor compartment was identified and protected, but not transposed. Only the very distal aspect of the extensor retinaculum over the third compartment was opened to allow subluxation of the tendon away from the wrist joint capsule. Wrist joint capsule was then incised longitudinally to enter the wrist joint. There was no purulent fluid within the wrist joint itself, and no surrounding abscess. There was fairly abundant chronic inflammatory synovial tissue around the wrist joint. The synovial tissue was then excised and sent for bacterial culture. I also obtained a culture swab from within the wrist joint. The dorsal aspect of the scaphoid, lunate, and capitate were exposed. No obvious grossly necrotic bone was found. I then copiously irrigated the wrist joint with 3000 cc of sterile saline via gravity irrigation. Wrist joint capsule and extensor retinaculum were closed with 3-0 Vicryl suture. Subcutaneous tissue was closed with 3-0 Vicryl, and skin was closed with 4-0 Prolene. I then anesthetized the wound bed with a 50/50 mixture of 1% lidocaine and 0.5% Marcaine without epinephrine. Sterile dressings were then applied with Xeroform, sterile gauze, sterile Webril, and Caden wrap. The drapes were removed, the patient was awakened from anesthesia, and taken to the Post Anesthesia Care Unit in stable condition. There were no immediate complications from the procedure. I was present and scrubbed for the entire procedure. I attest to the content of the Intraoperative Record and any orders documented therein. Any exceptions are noted below.
[2019-08-16] MEDS ORDERED: ONDANSETRON INJ 2 MG/ML 2 ML VIAL ONE (12:43)
[2019-08-16] MEDS ORDERED: PROPOFOL IV EMULSION 10 MG/ML 20 ML VIAL IV ONE (12:43)
[2019-08-16] MEDS: fentaNYL citrate 100 MCG/2 ML VIAL IV PRN ×4 (12:44→13:02)
[2019-08-16] MEDS ORDERED: fentaNYL citrate 100 MCG/2 ML VIAL IV PRN (13:10)
--- NOTE | 2019-08-16 13:36 | Anesthesiology Progress Note ---
Date of Service August 16, 2019 Anesthesia Post Procedure Vital Signs Vital Signs: Temp Pulse Pulse Pulse Resp BP Pulse Ox 08/16/19 13:22 58 L 14 162/73 H 100 08/16/19 13:10 36.6 C 57 L 16 162/75 H 100 08/16/19 13:00 49 L 20 155/66 H 100 08/16/19 12:50 58 L 20 168/81 H 100 08/16/19 12:40 65 15 137/63 100 08/16/19 12:34 36.3 C L 55 L 16 162/80 H 100 08/16/19 10:37 36.8 C 55 L 20 142/68 H 98 08/16/19 07:18 36.8 C 57 L 16 118/73 100 08/16/19 00:13 37 C 58 L 16 129/65 97 08/15/19 16:26 151/67 H 08/15/19 15:09 36.8 C 59 L 18 178/116 H 97 Pain Intensity Right Wrist: Pain Intensity: 6 Transfer of Care Handoff Completed per policy Notes Mental Status: alert / awake / arousable and participated in evaluation Patient Amnestic to Procedure: Yes Nausea / Vomiting: adequately controlled Pain: adequately controlled Airway Patency, RR, SpO2: stable & adequate BP & HR: stable & adequate Hydration State: stable & adequate Anesthetic Complications: no major complications apparent and Pt Satisfied with anesthetic care
[2019-08-16] MEDS: OXYCODONE HCL IR 5 MG TAB (IMMEDIATE RELEASE) PO PRN ×3 (15:27→23:56)
--- NOTE | 2019-08-16 17:20 | Hospitalist Progress Note ---
Date of Service August 16, 2019 Assessment & Plan (1) Septic arthritis of right wrist: --MRI R Wrist:Abnormal T1 hypointense bone marrow signal diffusely affecting the distal radial metaphysis at the articular surface and along the ulnar aspect as well as along the radial aspect of the scaphoid and ulnar aspect of the triquetrum. Significant synovitis most pronounced at the distal radial ulnar joint but also along both the radial and ulnar aspects of the proximal carpal row. Osseous erosions are also evident. Findings highly suspicious for osteomyelitis/septic arthritis. Orthopedic consultation is necessary. Articular cartilage thinning in the proximal carpal row also related to underlying septic arthritis. Large triangular fibrocartilage articular disc tear. --Blood Cx: No growth to date --Blood cultures likely will be negative due to prolonged IV antibiotics (For LUE abscess) --R Wrist wound Cx: pending --ECHO: No significant valvular abnormalities --S/P Right Wrist Joint Arthrotomy with Irrigation and Debridement POD #0 --Continue IV daptomycin, Zosyn Day #5 --Appreciate ID, Orthopedics Input --Will need prolonged IV antibiotic course --Pain control Hypertension Variable BP: Likely due to pain Monitor (2) Osteomyelitis: As noted above. (3) History of pseudoaneurysm: S/P resection. Vascular Surgery consulted Continue wound care (4) Chronic pain: Continue buprenorphine. (5) DVT prophylaxis: SCD's ordered. Ambulate. (6) Discharge planning issues: Needs outpatient antibiotic therapy. Family Medicine follow-up with Dr. Baum. Pain Management follow-up with Kody Tejeda MD [phone] Subjective Patient is seen and examined at bedside Planned for R Wrist I&D today Continues to have R wrist pain No other complaints Denies any chest pain, shortness of breath, dizziness, nausea, abdominal pain Family at bedside Review of Systems Review of Systems: All systems reviewed & are unremarkable except as noted in HPI & below Physical Exam Physical Exam: Physical Exam: Vitals signs as noted above General Appearance:Thin, no apparent distress Head: normocephalic, Atraumatic Eyes: normal inspection, EOMI Neck: supple, Trachea midline Respiratory/Chest: Normal breath sounds, CTA Cardiovascular: S1, S2, No murmur Abdomen/GI:Soft, Non tender, Bowel sounds present Extremities/Musculoskelatal:normal inspection, no edema, Left elbow in dressing, R wrist tender, mild swelling Neurologic/Psych:AAOX3, grossly no focal neurological deficits Skin: normal color, warm Results & Data Vital Signs (Past 12 Hours) Vital Signs Temp Pulse Pulse Pulse Pulse Resp BP 08/16/19 16:47 37 C 73 20 118/65 08/16/19 15:36 36.7 C 60 16 146/70 H 08/16/19 14:28 54 L 16 137/77 08/16/19 14:00 54 L 16 149/81 H 08/16/19 13:35 55 L 12 155/81 H 08/16/19 13:22 58 L 14 162/73 H 08/16/19 13:10 36.6 C 57 L 16 162/75 H 08/16/19 13:00 49 L 20 155/66 H 08/16/19 12:50 58 L 20 168/81 H 08/16/19 12:40 65 15 137/63 08/16/19 12:34 36.3 C L 55 L 16 162/80 H 08/16/19 10:37 36.8 C 55 L 20 142/68 H 08/16/19 07:18 36.8 C 57 L 16 118/73 Pulse Ox 08/16/19 16:47 97 08/16/19 15:36 99 08/16/19 14:28 96 08/16/19 14:00 96 08/16/19 13:35 98 08/16/19 13:22 100 08/16/19 13:10 100 08/16/19 13:00 100 08/16/19 12:50 100 08/16/19 12:40 100 08/16/19 12:34 100 08/16/19 10:37 98 08/16/19 07:18 100 Laboratory Results Short CBC 08/16/19 Range/Units 06:27 WBC 5.82 (4.8-10.8) K/uL Hgb 9.4 L (14.0-18.0) g/dL Hct 29.8 L (42-52) % Plt Count 491 H (130-400) K/uL BMP 08/16/19 06:27 Sodium 139 Potassium 3.7 Chloride 104 Carbon Dioxide 33 H BUN 12 Creatinine 0.83 Glucose 100 H Calcium 9.0 (1) Septic arthritis of right wrist Septic arthritis organism: due to unspecified organism Qualified Code(s): M00.9 - Pyogenic arthritis, unspecified (2) Osteomyelitis Osteomyelitis location: other site Osteomyelitis type: unspecified type Qualified Code(s): M86.9 - Osteomyelitis, unspecified
[2019-08-16] MEDS: DAPTOmycin 375 MG in SYRINGE 0 ML IV SCH (21:30)
[2019-08-17] MEDS: ACETAMINOPHEN 325 MG TAB PO PRN ×2 (02:45→22:04)
[2019-08-17] MEDS: PIPERACILLIN/TAZOBACTAM 4.5 GM in DEXTROSE 5% 100 ML IV SCH ×3 (04:01→19:48)
[2019-08-17 05:28] LABS: Hematocrit (blood only) 34.1 % (42-52); Hemoglobin 10.7 g/dL (14.0-18.0)
[2019-08-17] MEDS: buprenorphine HCL 8 MG SUBL SL SCH ×3 (08:29→21:10)
[2019-08-17] MEDS: OXYCODONE HCL IR 5 MG TAB (IMMEDIATE RELEASE) PO PRN ×4 (08:48→22:05)
--- NOTE | 2019-08-17 10:24 | Orthopedic Progress Note ---
Date of Service August 17, 2019 Assessment & Plan (1) Chronic osteomyelitis of wrist: POD 1 s/p I/D right wrist Dressing change tomorrow. Continue antibx as per Med Service/ID Team. Cx's taken during surgery pending. No further surgery planned at this time. Subjective Pt sleeping upon arrival but easily awoken. Having some pain this AM but tolerating well. No other complaints. Physical Exam Physical Exam: Dressings C/D/I. Cap refill < 2 seconds. NV intact. Good ROM of all fingers. Results & Data Vital Signs (Past 12 Hours) Vital Signs Temp Pulse Resp BP Pulse Ox 08/17/19 08:20 62 08/17/19 07:42 36.9 C 56 L 16 106/58 L 98 08/17/19 03:52 37.0 C 65 18 128/63 97 08/16/19 23:32 37.2 C 78 18 142/71 H 97
[2019-08-17] MEDS ORDERED: NAPROXEN 250 MG TAB PO PRN (11:16)
--- NOTE | 2019-08-17 11:29 | Communication Note ---
Date of Service: August 17, 2019 Pt's KIME wound well healed. Sutures removed today without dehiscence. Will see in office in 4 weeks.
--- NOTE | 2019-08-17 11:34 | Infectious Disease Progress Nt ---
Date of Service August 17, 2019 Assessment & Plan (1) Septic arthritis of right wrist: continue abx while inpatient, OR cutlures pending, blood cultures negative. 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 will likely need prolonged abx but not a candidate for picc line and outpatient IV abx due to IVDA.Dalvance approval pending. If he is to be d/c prior to Dalvance being approved would suggest doxycycline 100mg po bid x 30 days. Subjective pt blood cultures are negative, OR cultures pending, previous lue wound culture grew MSSA and GFS, he was treated with clinda with positive clinical response. Dalvance x 2 doses submitted to insurance, requires prior auth. afebrile Results & Data Vital Signs (Past 12 Hours) Vital Signs Temp Pulse Resp BP Pulse Ox 08/17/19 08:20 62 08/17/19 07:42 36.9 C 56 L 16 106/58 L 98 08/17/19 03:52 37.0 C 65 18 128/63 97 08/16/19 23:32 37.2 C 78 18 142/71 H 97 Laboratory Results Microbiology 08/16/19 11:52 Tissue,Undefined Gram Stain - Final 08/16/19 11:52 Tissue,Undefined Aerobic and Anaerobic Culture - Preliminary No growth to date. 08/16/19 11:50 Wrist,Right Gram Stain - Final 08/16/19 11:50 Wrist,Right Aerobic and Anaerobic Culture - Preliminary No growth to date. 08/11/19 22:33 Blood Aerobic Blood Culture - Final No growth in Aerobic bottle after 5 days. 08/11/19 22:33 Blood Anaerobic Blood Culture - Final No growth in Anaerobic bottle after 5 days. 08/11/19 22:31 Blood Aerobic Blood Culture - Final No growth in Aerobic bottle after 5 days. 08/11/19 22:31 Blood Anaerobic Blood Culture - Final No growth in Anaerobic bottle after 5 days. PG Care Time/CCT Total # of Minutes Spent Total Time Spent with Patient: Total time spent is greater than 50% in coordination of care (as documented) at patient's floor/unit and/or counseling patient: (1) Septic arthritis of right wrist Septic arthritis organism: due to unspecified organism Qualified Code(s): M00.9 - Pyogenic arthritis, unspecified
--- NOTE | 2019-08-17 17:35 | Hospitalist Progress Note ---
Date of Service August 17, 2019 Assessment & Plan (1) Septic arthritis of right wrist: --MRI R Wrist:Abnormal T1 hypointense bone marrow signal diffusely affecting the distal radial metaphysis at the articular surface and along the ulnar aspect as well as along the radial aspect of the scaphoid and ulnar aspect of the triquetrum. Significant synovitis most pronounced at the distal radial ulnar joint but also along both the radial and ulnar aspects of the proximal carpal row. Osseous erosions are also evident. Findings highly suspicious for osteomyelitis/septic arthritis. Orthopedic consultation is necessary. Articular cartilage thinning in the proximal carpal row also related to underlying septic arthritis. Large triangular fibrocartilage articular disc tear. --Blood Cx: No growth to date --Blood cultures likely will be negative due to prolonged IV antibiotics (For LUE abscess) --R Wrist wound Cx: Preliminary cultures negative --ECHO: No significant valvular abnormalities --S/P Right Wrist Joint Arthrotomy with Irrigation and Debridement POD #1 --Continue IV daptomycin, Zosyn Day #6 --Appreciate ID, Orthopedics Input --If cultures remain negative, likely will be discharged on doxycycline 100 mg twice daily for 30 days --Pain control --Dressing change planned for tomorrow Hypertension Stable Monitor (2) Osteomyelitis: As noted above. (3) History of pseudoaneurysm: S/P resection. Appreciate Vascular Surgery Input Continue wound care Sutures removed on 08/17/19 Needs follow-up with vascular surgery upon discharge in 4 weeks (4) Chronic pain: Continue buprenorphine. (5) DVT prophylaxis: SCD's ordered. Ambulate. (6) Discharge planning issues: Family Medicine follow-up with Dr. Baum. Pain Management follow-up with Kody Tejeda MD [phone] Subjective Patient is seen and examined at bedside Right wrist pain is better Denies any chest pain, shortness of breath, dizziness, nausea, abdominal pain Family at bedside Wound cultures remain negative to date Review of Systems Review of Systems: All systems reviewed & are unremarkable except as noted in HPI & below Physical Exam Physical Exam: Physical Exam: Vitals signs as noted above General Appearance:Thin, no apparent distress Head: normocephalic, Atraumatic Eyes: normal inspection, EOMI Neck: supple, Trachea midline Respiratory/Chest: Normal breath sounds, CTA Cardiovascular: S1, S2, No murmur Abdomen/GI:Soft, Non tender, Bowel sounds present Extremities/Musculoskelatal:normal inspection, no edema, Left elbow in dressing, R wrist in dressing Neurologic/Psych:AAOX3, grossly no focal neurological deficits Skin: normal color, warm Results & Data Vital Signs (Past 12 Hours) Vital Signs Temp Pulse Resp BP Pulse Ox 08/17/19 15:07 37 C 65 16 119/71 98 08/17/19 08:20 62 08/17/19 07:42 36.9 C 56 L 16 106/58 L 98 Laboratory Results Short CBC 08/17/19 Range/Units 05:14 Hgb 10.7 L (14.0-18.0) g/dL Hct 34.1 L (42-52) % (1) Septic arthritis of right wrist Septic arthritis organism: due to unspecified organism Qualified Code(s): M00.9 - Pyogenic arthritis, unspecified (2) Osteomyelitis Osteomyelitis location: other site Osteomyelitis type: unspecified type Qualified Code(s): M86.9 - Osteomyelitis, unspecified
[2019-08-17] MEDS: DAPTOmycin 375 MG in SYRINGE 0 ML IV SCH (22:06)
[2019-08-18] MEDS: ACETAMINOPHEN 325 MG TAB PO PRN (02:37)
[2019-08-18] MEDS: OXYCODONE HCL IR 5 MG TAB (IMMEDIATE RELEASE) PO PRN ×2 (02:38→07:48)
[2019-08-18] MEDS: PIPERACILLIN/TAZOBACTAM 4.5 GM in DEXTROSE 5% 100 ML IV SCH (03:23)
[2019-08-18] MEDS: buprenorphine HCL 8 MG SUBL SL SCH (08:26)
[2019-08-18] MEDS ORDERED: FLUCONAZOLE 100 MG TAB PO SCH (11:45)
[2019-08-18] MEDS ORDERED: PIPERACILLIN/TAZOBACTAM 3.375 GM in DEXTROSE 5% 100 ML IV SCH (12:00)
--- NOTE | 2019-08-18 12:23 | Hospitalist Progress Note ---
Date of Service August 18, 2019 Assessment & Plan (1) Septic arthritis of right wrist: --MRI R Wrist:Abnormal T1 hypointense bone marrow signal diffusely affecting the distal radial metaphysis at the articular surface and along the ulnar aspect as well as along the radial aspect of the scaphoid and ulnar aspect of the triquetrum. Significant synovitis most pronounced at the distal radial ulnar joint but also along both the radial and ulnar aspects of the proximal carpal row. Osseous erosions are also evident. Findings highly suspicious for osteomyelitis/septic arthritis. Orthopedic consultation is necessary. Articular cartilage thinning in the proximal carpal row also related to underlying septic arthritis. Large triangular fibrocartilage articular disc tear. --Blood Cx: No growth to date --Blood cultures likely will be negative due to prolonged IV antibiotics (For LUE abscess) --R Wrist wound Cx: Lidia on Preliminary cultures --ECHO: No significant valvular abnormalities --S/P Right Wrist Joint Arthrotomy with Irrigation and Debridement POD #2 --Continue IV daptomycin, Zosyn Day #7>>>Plan to transition to Dalvance upon discharge --Started on Fluconazole as per ID recommendations --Appreciate ID, Orthopedics Input --If cultures remain negative, likely will be discharged on doxycycline 100 mg twice daily for 30 days --Pain control --Had dressing change today --Needs follow up with Ortho and ID upon discharge Hypertension Stable Monitor (2) Osteomyelitis: As noted above. (3) History of pseudoaneurysm: S/P resection. Appreciate Vascular Surgery Input Continue wound care Sutures removed on 08/17/19 Needs follow-up with vascular surgery upon discharge in 4 weeks (4) Chronic pain: Continue buprenorphine. (5) DVT prophylaxis: SCD's ordered. Ambulate. (6) Discharge planning issues: Family Medicine follow-up with Dr. Baum. Pain Management follow-up with Kody Tejeda MD [phone] Subjective Patient is seen and examined at bedside Right wrist pain is better No new complaints Denies any chest pain, shortness of breath, dizziness, nausea, abdominal pain Wound Culture grew Lidia Discussed with Today Review of Systems Review of Systems: All systems reviewed & are unremarkable except as noted in HPI & below Physical Exam Physical Exam: Physical Exam: Vitals signs as noted above General Appearance:Thin, no apparent distress Head: normocephalic, Atraumatic Eyes: normal inspection, EOMI Neck: supple, Trachea midline Respiratory/Chest: Normal breath sounds, CTA Cardiovascular: S1, S2, No murmur Abdomen/GI:Soft, Non tender, Bowel sounds present Extremities/Musculoskelatal:normal inspection, no edema, Left elbow in dressing, R wrist in dressing Neurologic/Psych:AAOX3, grossly no focal neurological deficits Skin: normal color, warm Results & Data Vital Signs (Past 12 Hours) Vital Signs Temp Pulse Resp BP Pulse Ox 08/18/19 07:30 36.8 C 57 L 18 105/61 99 Laboratory Results Cardiac Enzymes 08/18/19 Range/Units 06:03 Total Creatine Kinase 62 (39-308) U/L (1) Septic arthritis of right wrist Septic arthritis organism: due to unspecified organism Qualified Code(s): M00.9 - Pyogenic arthritis, unspecified (2) Osteomyelitis Osteomyelitis location: other site Osteomyelitis type: unspecified type Qualified Code(s): M86.9 - Osteomyelitis, unspecified
--- NOTE | 2019-08-18 12:43 | Discharge Summary ---
Date of Service August 18, 2019 Admission HPI Per Admitting Provider CHIEF COMPLAINT: Possible septic arthritis and osteomyelitis of the right wrist. HISTORY OF PRESENT ILLNESS: This patient is a 33-year-old male with past medical history significant for I.V. drug abuse, history of hepatitis C, status post treatment, recently in the hospital with a pseudoaneurysm of the brachial artery in the left elbow region secondary to I.V. drugs. The pseudoaneurysm was resected. Blood cultures were negative, but wound cultures were positive for staph aureus and group beta strep, was seen by Infectious Disease, was discharged on clindamycin for the next 21 days. He was discharged on 08/03/2019. The patient states during the hospitalization, he had blood work done in the right wrist right/ hand region. He states his wrist was swollen. He thought it was hematoma and he was having pain and difficulty with movement of the wrist and fingers. He had a followup appointment with family doctor a couple of days ago. He states he has significant pain in the right wrist though swelling has come down, he was able to use his hand, but he was having significant pain and CAT scan was done on 08/10/[address] report mentions large radiocarpal and distal radial ulnar joint effusions with bone erosions involving the distal radius and possibly scaphoid. Findings are highly suggestive of septic arthritis and associated osteomyelitis. The patient currently has some erythema and some pain in the right wrist region on the medial aspect, but able to move his hand and fingers, hemodynamically stable. Denies any fever or chills. He states he was nauseous and had some loose stools from the antibiotic, but the probiotics are helping him. Denies any other complaints. Denies any headache. No blurred vision. No earache. No runny nose. No sore throat. No difficulty swallowing. Appetite is okay. No chest pain or shortness of breath. No cough. Currently, no nausea. No abdominal pain. No blood in stools or black stools. No burning micturition. No hematuria. No swelling in the legs. No rash except some erythematous changes in the right hand and wrist region. Admission Exam Per Admitting Provider PHYSICAL EXAMINATION: GENERAL: The patient is thin and frail, not in acute distress. VITAL SIGNS: Temperature 36.9, pulse is 80, respiratory rate 18, blood pressure 142/70 and oxygen 97% on room air. HEENT: No pallor. No icterus. Pupils are equal, round and reactive to light. NECK: No JVD. No neck masses. Supple. CARDIOVASCULAR: S1, S2 heard. Regular rate and rhythm. No murmur. No gallop. RESPIRATORY SYSTEM: Normal AP diameter. No accessory muscle use. No wheezing. No crackles. ABDOMEN: Soft. Bowel sounds present. Nontender. No distention. CENTRAL NERVOUS SYSTEM: Alert and awake and oriented. Nonfocal. EXTREMITIES: In the right wrist region, there is mild swelling and erythema seen with erythema extending into the hand and mild tenderness on palpation. Range of movements normal. Principal Diagnosis Right wrist septic arthritis/osteomyelitis Discharge Data Allergies Allergy/AdvReac Type Severity Reaction Status Date / Time ketorolac [From Toradol] Allergy Severe Anaphylaxis Verified 08/11/19 21:39 tramadol Allergy Intermediate Throat Verified 08/11/19 21:39 tightness,nausea,vomiting and diarrhea Sulfa (Sulfonamide Allergy Unknown Unknown Verified 08/11/19 21:39 Antibiotics) Consultations 08/11/19 21:21 ED Decision to Admit Stat 08/11/19 23:28 Consult Case Management - Discharge Planning Routine Consult Orthopedic Surgery Routine 08/12/19 08:00 Consult Infectious Diseases Routine 08/13/19 07:00 Consult Vascular Surgery Routine Procedures Performed Operation Date: 08/16/19 10:35 Actual Procedures p Right Wrist Incision and Drainage(Right) - Kody Michaud M.D. Ordered Studies 08/12/19 09:36 MR wrist RT wo con Routine Right Wrist MRI: 1. Abnormal T1 hypointense bone marrow signal diffusely affecting the distal radial metaphysis at the articular surface and along the ulnar aspect as well as along the radial aspect of the scaphoid and ulnar aspect of the triquetrum. Significant synovitis most pronounced at the distal radial ulnar joint but also along both the radial and ulnar aspects of the proximal carpal row. Osseous erosions are also evident. Findings highly suspicious for osteomyelitis/septic arthritis. Orthopedic consultation is necessary. 2. Articular cartilage thinning in the proximal carpal row also related to underlying septic arthritis. 3. Large triangular fibrocartilage articular disc tear. Hospital Course (1) Septic arthritis of right wrist: --MRI R Wrist:Abnormal T1 hypointense bone marrow signal diffusely affecting the distal radial metaphysis at the articular surface and along the ulnar aspect as well as along the radial aspect of the scaphoid and ulnar aspect of the triquetrum. Significant synovitis most pronounced at the distal radial ulnar joint but also along both the radial and ulnar aspects of the proximal carpal row. Osseous erosions are also evident. Findings highly suspicious for osteomyelitis/septic arthritis. Orthopedic consultation is necessary. Articular cartilage thinning in the proximal carpal row also related to underlying septic arthritis. Large triangular fibrocartilage articular disc tear. --Blood Cx: No growth to date --Blood cultures likely will be negative due to prolonged IV antibiotics (For LUE abscess) --R Wrist wound Cx: Lidia on Preliminary cultures --ECHO: No significant valvular abnormalities --S/P Right Wrist Joint Arthrotomy with Irrigation and Debridement POD #2 --Continue IV daptomycin, Zosyn Day #7>>>Plan to transition to Dalvance upon discharge --Started on Fluconazole as per ID recommendations --Appreciate ID, Orthopedics Input --If cultures remain negative, likely will be discharged on doxycycline 100 mg twice daily for 30 days --Pain control --Had dressing change today --Needs follow up with Ortho and ID upon discharge Hypertension Stable Monitor (2) Osteomyelitis: As noted above. (3) History of pseudoaneurysm: S/P resection. Appreciate Vascular Surgery Input Continue wound care Sutures removed on 08/17/19 Needs follow-up with vascular surgery upon discharge in 4 weeks (4) Chronic pain: Continue buprenorphine. (5) DVT prophylaxis: SCD's ordered. Ambulate. (6) Discharge planning issues: Family Medicine follow-up with Dr. Baum. Pain Management follow-up with Kody Tejeda MD [phone] Total Time Total Time Spent Total Time Spent (In Minutes): 41 minutes Total Time Includes: Examination of the Patient, Discharge Planning, Medication Reconciliation, Communication With Other Providers and Other Discharge Plan Discharge Items Patient Disposition: Home - Self-Care Reason For Visit: RIGHT WRIST SEPTIC ARTHRITIS/OSTEOMYELITIS Discharge Diagnosis: Right wrist septic arthritis/osteomyelitis Activity: Resume your previous activity Exercise/Sports: Gradually increase as tolerated Non-emergency contact: Primary Care Provider, Surgeon and Specialist Call non-emergency contact if: you have any medication questions, your symptoms worsen, your pain is not controlled, your pain is worsening, your pain is unusual for you, your pain is concerning for you, you have a fever, your wound has increased redness, your wound has increased drainage and your wound pain has increased Follow-up/Referrals: Tano Baum MD [Primary Care Provider] - Diet: Regular Addtl Attending Provider Instructions: You have an appointment with [facility] on Tuesday, at 8:00am for your IV antibiotic. They will schedule your second infusion at that time. Follow-up with Dr. Raul Smith for routine care on August 23, 2019 at 2:25 PM Follow-up with your Orthopedic surgeon Dr.Scott Michaud in 2 weeks Follow up with your Vascular Surgeon Dr. Wayne in 4 weeks Follow up with Infectious disease in 2-4 weeks Complete the IV antibiotic course (Dalvance) and Fluconazole as per the recommendations from your Infectious disease Seek immediate medical attention if your symptoms reoccur or worsen Pending Studies at Discharge: Yes Studies:: Wound Cultures Stand-Alone Forms: My [facility], Opioid Pain Management, Smoking Cessation Medications and DC Order Prescriptions: New fluconazole 100 mg Tablet 100 mg PO QAM Qty: 30 RF: 0 Continued buprenorphine HCl 8 mg Tablet, Sublingual 8 mg SUBLINGUAL TID RF: 0 ondansetron HCl [Zofran] 4 mg tablet 4 mg PO BID PRN (Reason: Nausea) RF: 0 naproxen sodium 550 mg Tablet 550 mg PO Q8H PRN (Reason: Pain) RF: 0 Discontinued clindamycin HCl 300 mg capsule 300 mg PO Q8H RF: 0 Discharge Orders: Discharge Order (Routine); Ordered 08/18/19 Ordered By: Alonzo Branch Admission Data Admit Date/Time: 08/11/19 22:16 Attending Provider: Alonzo Branch Admit Provider: Rony Kim Primary Care Provider: Tano Baum Other Providers: Rony Kim ; Ceferino Ware ; Khurram Fonseca ; Jonah Shah ; Elma Hernadez Thomas J ; Argelia Nieves ; Good Null ; Kiran Wren ; Cristian Ramos ; Kiran Vaughan ; Chaka Carpio. ; Cristian Lee ; Ruben Cardoso ; José Luis Villela ; Chinedu Pierre ; Kee Lynch ; Mau Buckley ; Argelia Cardoza ; Neto Patel ; Kody Weiner ; Asael Carvajal ; Otilia Scott ; Braden Wayne Other Interventions: Discharge Summary Assessment (RN) Last Done: 08/18/19 13:24 DC Date/Time DO NOT enter until pt leaves facility: 08/18/19 14:02
--- NOTE | 2019-08-18 15:38 | Orthopedic Progress Note ---
Date of Service August 18, 2019 Assessment & Plan (1) Chronic osteomyelitis of wrist: POD 2 s/p I/D right wrist Dressing changed today. Redressed with adaptic, gauze, kerlix wrap, LEANDRA. Continue antibx as per Med Service/ID Team. Cx's taken during surgery pending. No further surgery planned at this time. Plan for d/c when final antibiotic choice is made. F/U with Dr. Michaud in 7- 10 days for re-evaluation. Subjective Wrist overall is feeling better. Pain is better controlled. Still having some pain with flexing and extending his fingers. No other complaints. Physical Exam Constitutional: WD/WN, vitals as above no acute distress Musculoskeletal: Extremities: + wrist abnormality Right (Dorsal wrist incision is well approximated. Minimal to no erythema. No drainage. NV intact RUE.) Skin: no rashes, warm and dry Neurologic: normal touch/pain/proprioception Psychiatric: A+Ox3, euthymic affect Speech: normal rate/rhythm/volume of speech Results & Data Vital Signs (Past 12 Hours) Vital Signs Temp Pulse Resp BP Pulse Ox 08/18/19 13:24 36.8 C 57 L 18 105/61 99 08/18/19 07:30 36.8 C 57 L 18 105/61 99
== END 2019-08-18 14:02 | disposition home or self-care (01) | DRG 549 ==
LOC: ED 20:34 → 3N 22:16 → SUATTDRO 22:16 → 3N 23:25